=== PATIENT | female | born 1945 | race African-American/Black ===

== ENCOUNTER 2017-01-22 21:46 | Emergency (ER) | payer MEDICARE, OTHER ==
[~2017-01-22] VITALS: Ht 167.6 cm; Wt 68.0 kg
[~2017-01-22 21:46] MED LIST: NITR0.4S31; PHEN100C70
[2017-01-22 22:46] LABS: Basophils # (auto) 0 uL; Basophils % (auto) 0.7 % (0.0-2.0); Eosinophils # (auto) 0 uL; Eosinophils % (auto) 1.1 % (0.0-7.0); Lymphocytes # (auto) 1.5 uL; Lymphocytes % (auto) 37.2 % (10.0-50.0); Mean Corpuscular Hgb Conc. 33.3 g/dL (32.0-36.0); Mean Corpuscular Volume 84.1 fL (80.0-100.0); Monocytes # (auto) 0.4 uL; Monocytes % (auto) 10.2 % (0.0-12.0); Neutrophils # (auto) 2.1 uL; Neutrophils % (auto) 50.8 % (37.0-80.0); Nucleated Red Blood Cells % 0.1 %; Platelet Count (auto) 319 10^3/uL (140-450); Red Cell Distribution Width 14.1 % (11.8-14.3); White Blood Cell 4.1 10^3/uL (4.4-10.8)
[2017-01-22 23:06] LABS: Albumin 3.6 g/dL (3.4-5.0); Anion Gap 6 (5-15); Aspartate Aminotransferase 15 U/L (15-37); BUN/Creatinine Ratio 11.5; Blood Urea Nitrogen 11 mg/dL (7-18); Calcium 8.6 mg/dL (8.5-10.1); Carbon Dioxide 29 mmol/L (21-32); Chloride 104 mmol/L (98-107); GFR African American 73 mL/min; GFR Non-African American 61 mL/min; Glucose 89 mg/dL (74-106); Potassium 3.7 mmol/L (3.5-5.1); Sodium 139 mmol/L (136-145)
[2017-01-22 23:12] LABS: Alkaline Phosphatase 186 U/L (45-117); Bilirubin, Total 0.2 mg/dL (0.2-1.0); Total Protein 7.9 g/dL (6.4-8.2)
[2017-01-23 00:12] VITALS: BP 105/49
[2017-01-23] MEDS ORDERED: PHENobarbital 32.4 MG TAB PO ONE (00:45)
== END 2017-01-23 01:26 | disposition home or self-care (01) ==
LOC: ER 21:46 → EDBD 21:46 → EDUNIT# 21:46 → ER 01-23 01:01
DX: G40.909 Epilepsy, unspecified, not intractable, without status epilepticus (principal); I10 Essential (primary) hypertension; E78.5 Hyperlipidemia, unspecified; Z91.14 Patient's other noncompliance with medication regimen; Z87.891 Personal history of nicotine dependence
CPT/HCPCS: 36415; 70450; 80053; 80184; 80185; 84484; 85025; 93005; 94761

== ENCOUNTER 2020-10-04 11:55 | Emergency (ER) | payer MEDICARE, OTHER ==
[~2020-10-04] VITALS: Ht 167.6 cm; Wt 59.0 kg
[2020-10-04 11:55] VITALS: BP 129/68
[~2020-10-04 11:55] MED LIST changes: +PHEN100C; -PHEN100C70
[2020-10-04 12:33] LABS: Basophils # (auto) 0 10 ^3/uL (0-0.2); Basophils % (auto) 1.3 % (0.0-2.0); Eosinophils # (auto) 0 10 ^3/uL (0-0.8); Eosinophils % (auto) 1.2 % (0.0-7.0); Hematocrit 34.8 % (36.0-46.0); Lymphocytes # (auto) 1.1 10 ^3/uL (0.4-5.4); Lymphocytes % (auto) 33.9 % (10.0-50.0); Mean Corpuscular Hemoglobin 28.3 pg (28.0-32.0); Mean Corpuscular Hgb Conc. 34.3 g/dL (32.0-36.0); Mean Corpuscular Volume 82.5 fL (80.0-100.0); Monocytes # (auto) 0.4 10 ^3/uL (0-1.3); Monocytes % (auto) 11.8 % (0.0-12.0); Neutrophils # (auto) 1.7 10 ^3/uL (1.6-8.6); Neutrophils % (auto) 51.8 % (37.0-80.0); Nucleated Red Blood Cells % 0.2 %; Red Blood Cells 4.22 10^6/uL (4.0-5.20); Red Cell Distribution Width 13.6 % (11.8-14.3); White Blood Cell 3.4 10^3/uL (4.4-10.8)
[2020-10-04 12:51] LABS: Albumin 3.2 g/dL (3.4-5.0); Anion Gap 3 (5-15); Blood Alcohol < 3.0 mg/dL (0-5); Blood Urea Nitrogen 12 mg/dL (7-18); Carbon Dioxide 28 mmol/L (21-32); Chloride 112 mmol/L (98-107); Glucose 81 mg/dL (74-106); Magnesium 2.1 mg/dL (1.6-2.6); Potassium 3.2 mmol/L (3.5-5.1); Sodium 143 mmol/L (136-145)
[2020-10-04 12:55] LABS: Alanine Aminotransferase 21 U/L (13-56); Alkaline Phosphatase 176 U/L (45-117); Aspartate Aminotransferase 18 U/L (15-37); Bilirubin, Total 0.3 mg/dL (0.2-1.0); GFR African American 97 mL/min; GFR Non-African American 80 mL/min; Total Protein 7.3 g/dL (6.4-8.2)
== END 2020-10-04 16:45 | disposition home or self-care (01) ==
LOC: EDBD 11:55 → ER 11:55
DX: R55 Syncope and collapse (principal); I10 Essential (primary) hypertension; E78.5 Hyperlipidemia, unspecified; Z87.891 Personal history of nicotine dependence; Z79.899 Other long term (current) drug therapy
CPT/HCPCS: 36415; 70450; 71045; 80053; 80320; 83735; 84484; 85025; 93005

== ENCOUNTER 2023-11-28 22:07 | Emergency (ER) | payer MEDICARE, OTHER ==
[~2023-11-28] VITALS: Ht 167.6 cm; Wt 45.5 kg
[2023-11-28 23:20] VITALS: PULSE 86; RESP 12; O2SAT 93
[2023-11-29] MEDS: ONDANSETRON HCL 4 MG/2 ML VIAL IV ONE (00:05)
[2023-11-29] MEDS: MORPHINE SULFATE 4 MG/ML SYR/VIAL IV ONE (00:05)
[2023-11-29] MEDS ORDERED: HYDR-4902 PO (02:20)
[2023-11-29 07:25] VITALS: BP 127/65; PULSE 87; RESP 12; TEMP 98.7; O2SAT 82
[2023-11-29 08:34] VITALS: PULSE 78
== END 2023-11-29 09:21 | disposition home or self-care (01) ==
LOC: EDBD 22:07 → ER 22:07
DX: S30.0XXA Contusion of lower back and pelvis, initial encounter (principal); E78.5 Hyperlipidemia, unspecified; I10 Essential (primary) hypertension; Z87.891 Personal history of nicotine dependence; W18.09XA Striking against other object with subsequent fall, initial encounter; Y93.89 Activity, other specified; Y92.89 Other specified places as the place of occurrence of the external cause; Y99.8 Other external cause status
CPT/HCPCS: 74176; 93005; 96374; 96375; 99285; J2270; J2405

== ENCOUNTER 2024-04-13 07:24 | Inpatient (IN) | payer OTHER, MEDICARE ==
[~2024-04-13] VITALS: Ht 157.5 cm; Wt 48.6 kg
[~2024-04-13 07:24] MED LIST changes: +HYDR-4902 PO
--- NOTE | 2024-04-13 09:32 | ED.PDOC ---
HPI (NEURO) HPI Comments 79 year old female MARYURI presents to the ED with chief complaint of generalized weakness. EMS reports patient is on hospice and has been experiencing generalized weakness for the past week. Patient relays that she experienced a seizure and has been feeling weak today. Patient unable to answer further questions and is a poor historian. Patient denies any N/V/D, dizziness, headache, chest pain, or SOB. Chief Complaint: General Weakness Time Seen by MD: 09:29 Primary Care Provider: LILOIES Reviewed Notes: Nurses Notes, Cable Installation Technician Notes, Medications, Allergies Information Source: Patient, Emergency Med Personnel Mode of Arrival: EMS Severity: Moderate Dizziness/Weakness Severity: Unable to do activities Headache Severity: None Timing: Hours Duration: Since onset Prehospital treatment: None Seizure Quality: Tonic-clonic Weakness Location: Generalized Seizure Location: Generalized Onset: At rest Circumstances: Spontaneous Symptoms: Weakness After: Normal Mentation History of: Seizure Disorder Associated Signs and Symptoms: Weakness Past Medical History PAST MEDICAL HISTORY: Angina, Dementia, High Lipids, HTN, Seizures Surgical History: Denies all surgeries 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 Hx Family History Family History: No family hx of HTN Social History Smoker: Quit Greater Than 1 Year Alcohol: Rarely Drugs: Denies Drug Use Lives In: Assisted Care Constitutional: reports: weakness; denies: chills, diaphoresis, fatigue, fever, malaise, sweats, others EENTM: denies: blurred vision, double vision, ear bleeding, ear discharge, ear drainage, ear pain, ear ringing, eye pain, eye redness, hearing loss, mouth pain, mouth swelling, nasal discharge, nose bleeding, nose congestion, nose pain, photophobia, tearing, throat pain, throat swelling, voice changes, others Respiratory: denies: cough, hemoptysis, orthopnea, SOB at rest, shortness of breath, SOB with excertion, stridor, wheezing, others Cardiovascular: denies: chest pain, dizzy spells, diaphoresis, Dyspnea on exertion, edema, irregular heart beat, left arm pain, lightheadedness, palpitations, PND, syncope, others Gastrointestinal: denies: abdomen distended, abdominal pain, blood streaked bowels, constipated, diarrhea, dysphagia, difficulty swallowing, hematemesis, melena, nausea, poor appetite, poor fluid intake, rectal bleeding, rectal pain, vomiting, others Genitourinary: denies: abnormal vagina bleeding, burning, dyspareunia, dysuria, flank pain, frequency, hematuria, incontinence, pain, , vagina discharge, urgency, others Neurological: reports: seizure; denies: dizziness, fainting, headache, left sided numbness, left sided weakness, numbness, paresthesia, pre-existing deficit, right sided numbness, right sided weakness, speech problems, tingling, tremors, weakness, others Musculoskeletal: denies: back pain, gout, joint pain, joint swelling, muscle pain, muscle stiffness, neck pain, others Integumetry: denies: bruises, change in color, change in hair/nails, dryness, laceration, lesions, lumps, rash, wounds, others Allergic/Immunocompromised: denies: Difficulty Healing, Frequent Infections, Hives, Itching, others Hematologic/Lymphatic: denies: anemia, blood clots, easy bleeding, easy bruising, swollen glands, others Endocrine: denies: excessive hunger, excessive sweating, excessive thirst, excessive urination, flushing, intolerance to cold, intolerance to heat, unexplained weight gain, unexplained weight loss, others Psychiatric: denies: anxiety, bipolar disorder, depression, hopeless, panic disorder, schizophrenia, sleepless, suicidal, others All Other Systems: Reviewed and Negative Physical Exam General Appearance: No Apparent Distress, Other (Chronically ill appearing, pleasantly confused.) HEENT: Normal ENT Inspection, PERRL/EOMI Neck: Full Range of Motion, Non-Tender, Normal, Normal Inspection Respiratory: Chest Non-Tender, Lungs Clear, No Accessory Muscle Use, No Respiratory Distress, Normal Breath Sounds Cardiovascular: No Edema, No JVD, No Murmur, No Gallop, Normal Peripheral Pulses, Regular Rate/Rhythm Breast Exam: Deferred Gastrointestinal: No Organomegaly, Non Tender, No Pulsatile Mass, Normal Bowel Sounds, Soft Genitalia: Deferred Pelvic: Deferred Rectal: Deferred Extremities: No calf tenderness, Normal capillary refill, Normal inspection, Normal range of motion, Non-tender, No pedal edema Musculoskeletal : Apperance: Normal Neurologic: Alert, casino shift manager II-XII nml as Tested, No Motor Deficits, Normal Affect, Normal Mood, No Sensory Deficits Cerebellar Function: Normal Reflexes: Normal Skin: Dry, Normal Color, Warm Lymphatic: No Adenopathy Was a procedure done? Was a procedure done?: No Differential Diagnosis (SZ) Seizure: Hypocalcemia, Hypoglycemia, Idiopathic, Syncope, Encephalopathy, Ep ilepsy-Break Through CVA: CVA, Encephalopathy, SAH General Weakness: CVA, Dehydration, Electrolyte imbalance, Encephalopathy, Hypoglycemia, Myocardial infarction, TIA Headache: N/A X-Ray, Labs, Meds, VS Vital Signs Date Time Temp Pulse Resp B/P (MAP) Pulse Ox O2 Delivery O2 Flow Rate FiO2 04/13/24 10:59 93 16 94/45 (61) 95 04/13/24 10:10 92 16 96 Room Air 04/13/24 10:10 97.5 92 16 86/59 (68) 96 97.5 04/13/24 07:27 96 04/13/24 07:26 98.4 101 20 108/64 (79) 94 Lab Test 04/13/24 10:37 04/13/24 06:31 Range/Units Troponin I High Sensitivity < 3 L 3 L </=34 ng/L White Blood Count 13.1 H 4.4-10.8 10^3/uL Red Blood Count 4.24 4.0-5.20 10^6/uL Hemoglobin 9.9 L 12.2-16.2 g/dL Hematocrit 31.0 L 36.0-46.0 % Mean Corpuscular Volume 73.1 L 80.0-100.0 fL Mean Corpuscular Hemoglobin 23.3 L 28.0-32.0 pg Mean Corpuscular Hemoglobin Concent 31.9 L 32.0-36.0 g/dL Red Cell Distribution Width 17.1 H 11.8-14.3 % Platelet Count 378 140-450 10^3/uL Mean Platelet Volume 7.0 6.9-10.8 fL Neutrophils (%) (Auto) 79.7 37.0-80.0 % Lymphocytes (%) (Auto) 12.8 10.0-50.0 % Monocytes (%) (Auto) 7.1 0.0-12.0 % Eosinophils (%) (Auto) 0.2 0.0-7.0 % Basophils (%) (Auto) 0.2 0.0-2.0 % Neutrophils # (Auto) 10.5 H 1.6-8.6 10 ^3/uL Lymphocytes # (Auto) 1.7 0.4-5.4 10 ^3/uL Monocytes # (Auto) 0.9 0-1.3 10 ^3/uL Eosinophils # (Auto) 0 0-0.8 10 ^3/uL Basophils # (Auto) 0 0-0.2 10 ^3/uL Nucleated Red Blood Cells 0.0 % Sodium Level 139 136-145 mmol/L Potassium Level 4.2 3.5-5.1 mmol/L Chloride Level 104 98-107 mmol/L Carbon Dioxide Level 28 20-31 mmol/L Anion Gap 7 5-15 Blood Urea Nitrogen 15 9-23 mg/dL Creatinine 0.89 0.550-1.02 mg/dL Glomerular Filtration Rate Calc 66 >90 mL/min BUN/Creatinine Ratio 16.9 10.0-20.0 Serum Glucose 102 74-106 mg/dL Calcium Level 8.9 8.7-10.4 mg/dL Current Medications Medications (Trade) Dose Ordered Sig/Deloris Route Start Time Stop Time Status Last Admin Sodium Chloride 1,000 ml @ 1,000 mls/hr Q1H ONCE IV 04/13/24 10:30 04/13/24 11:29 DC 04/13/24 10:23 Time of 1ST Reevaluation: 10:29 Reevaluation 1ST: Unchanged Patient Education/Counseling: Diagnosis, Treatment Family Education/Counseling: No Family Present Additional Information I reviewed the following notes from patient's past medical encounters: 11/28/23 for lower back pain The following tests were ordered, and results were reviewed by me: CT Head, CXR, CBC, BMP, UA, Troponin, EKG I reviewed and agreed with the following test results read by other providers: CT Head, CXR Additional Information was gathered from interviewing the following independent historians: EMS I discussed treatment and results with medical personnel. Departure 1 Departure Time of Disposition: 11:36 (Patient with generalized weakness and found to have a right lower lobe pneumonia. Patient's vitals and presentation is concerning for sepsis. Patient is mildly fluid overloaded so we will give decreased amount of fluid. We will admit patient for further workup and expert consultation.) Impression: Primary Impression: Right lower lobe pneumonia Qualified Codes: J18.9 - Pneumonia, unspecified organism Additional Impression: Generalized weakness Disposition: ADMITTED INPATIENT Admit to: Med Surg Condition: Serious Critical Care Note Critical Care Time?: Yes Critical care comment: Concerning for sepsis Authorized and Performed by: Tim Encarnacion MD Total critical care time: Approximately 40 minutes Due to a high probability of clinically significant, life threatening d eterioration, the patient required my highest level of preparedness to intervene emergently and I personally spent this critical care time directly and personally managing the patient. This critical care time included obtaining a history; examining the patient; pulse oximetry; ordering and review of studies; arranging urgent treatment with development of a management plan; evaluation of patient's response to treatment; frequent reassessment; and, discussions with other providers. This critical care time was performed to assess and manage the high probability of imminent, life-threatening deterioration that could result in multi-organ failure. It was exclusive of separately billable procedures and treating other patients and teaching time. Please see my other sections and the rest of the note for further information on patient assessment and treatment. Stability Stability form required: No Heart Score Heart Score: Heart Score Response (Comments) Value History N/A 0 EKG N/A 0 Age N/A 0 Risk Factors N/A 0 Troponin N/A 0 Total 0 I personally scribed for TIM ENCARNACION MD ([email or web address]) on 04/13/24 at 09:32. Electronically submitted by Derrick Story ([email or web address]). TIM ENCARNACION MD Apr 13, 2024 09:32
[2024-04-13 09:54] LABS: Basophils # (auto) 0 10 ^3/uL (0-0.2); Eosinophils # (auto) 0 10 ^3/uL (0-0.8); Hemoglobin 9.9 g/dL (12.2-16.2)
[2024-04-13 09:56] LABS: Chloride 104 mmol/L (98-107); Potassium 4.2 mmol/L (3.5-5.1); Sodium 139 mmol/L (136-145)
[2024-04-13 09:57] LABS: Anion Gap 7 (5-15); Basophils % (auto) 0.2 % (0.0-2.0); Calcium 8.9 mg/dL (8.7-10.4); Carbon Dioxide 28 mmol/L (20-31); Eosinophils % (auto) 0.2 % (0.0-7.0); Lymphocytes # (auto) 1.7 10 ^3/uL (0.4-5.4); Lymphocytes % (auto) 12.8 % (10.0-50.0); Mean Corpuscular Hemoglobin 23.3 pg (28.0-32.0); Mean Corpuscular Hgb Conc. 31.9 g/dL (32.0-36.0); Mean Corpuscular Volume 73.1 fL (80.0-100.0); Monocytes # (auto) 0.9 10 ^3/uL (0-1.3); Monocytes % (auto) 7.1 % (0.0-12.0); Neutrophils # (auto) 10.5 10 ^3/uL (1.6-8.6); Neutrophils % (auto) 79.7 % (37.0-80.0); Platelet Count (auto) 378 10^3/uL (140-450); Red Blood Cells 4.24 10^6/uL (4.0-5.20); Red Cell Distribution Width 17.1 % (11.8-14.3); White Blood Cell 13.1 10^3/uL (4.4-10.8)
[2024-04-13 10:02] LABS: BUN/Creatinine Ratio 16.9 (10.0-20.0); Blood Urea Nitrogen 15 mg/dL (9-23); Glucose 102 mg/dL (74-106)
[2024-04-13] MEDS: SODIUM CHLORIDE 0.9% 1,000 ML IV ONE ×3 (10:23→16:44)
--- NOTE | 2024-04-13 10:48 | DVH ---
EXAM: XY CHEST PORTABLE Indication: weakness Technique: Single frontal view of the chest was obtained Comparison: None FINDINGS: Lines and Tubes: None Lungs: Small right pleural effusion and right lung opacities. No pneumothorax. Cardiomediastinal contours: Unremarkable. Atherosclerotic vascular calcifications of the thoracic ao rta are noted. Bones: No acute osseous abnormality. IMPRESSION: Small right pleural effusion and right lung opacities.
--- NOTE | 2024-04-13 10:48 | DVH ---
EXAM: CT HEAD WITHOUT CONTRAST INDICATION: weakness TECHNIQUE: CT of the head without intravenous contrast. Coronal and sagittal reformatted images are submitted. Radiation Dose : 1. Head: CT Dose: CTDI volume is 53.2 mGy. Dose-length product is 1046.3 mGy*cm The dose indicators for CT are the volume Computed Tomography (CT) Dose Index (CTDIvol) and the Dose Length Product (DLP), and are measured in units of mGy and mGy-cm, respectively. These indicators are not patient dose, but values generated from the CT scanner acquisition factors. The report includes radiation exposure data for exposures received during this examination. All CT scans at this medical facility are performed using dose modulation techniques as appropriate to a performed exam including the following: Automated exposure control was utilized; adjustment of the MA and/or KV according to patient size; and use of iterative reconstruction technique. COMPARISON: CT scan of the head performed on 10/04/2020 FINDINGS: There is no evidence of acute intracranial hemorrhage, extra-axial collection, mass effect, midline s hift, herniation or hydrocephalus. There are periventricular and subcortical hypodensities, nonspecific, but likely reflecting sequelae of chronic microvascular ischemic changes. The ventricles, sulci and cisterns are age appropriate. Old bilateral basal ganglia infarcts. The martin-white differentiation is intact. The visualized paranasal sinuses and mastoid air cells are clear. No depressed calvarial fracture. The surrounding soft tissues are unremarkable. IMPRESSION: 1. No evidence of acute intracranial abnormality.
[2024-04-13] MEDS: VANCOMYCIN 1GM/250ML KIT 200 ML IV ONE (13:04)
--- NOTE | 2024-04-13 14:28 | ECG ---
[facility] Test Date: 2024-04-13 Test Time: 07:27:29 Pat Name: DOT LAY Department: ER Room: 0222T Gender: F Wheat Farmer: IC : 1945 Requested By: TIM LIMA Order Number: [id number] Reading MD: Alber Bateman Measurements Intervals [place] Rate: 96 P: 73 WV: 120 QRS: 56 QRSD: 77 T: 77 QT: 366 QTc: 463 Interpretive Statements Sinus rhythm Low voltage, extremity and precordial leads Nonspecific T abnrm, anterolateral leads Electronically Signed On 04-16-2024 10:38:15 PST by Alber Bateman Please click the below link to view image of tracing.
[2024-04-13] MEDS ORDERED: ACETAMINOPHEN 325 MG TAB PO PRN (16:00)
[2024-04-13] MEDS ORDERED: HYDROcodone-ACET 5/325MG TAB PO PRN (16:00)
[2024-04-13] MEDS ORDERED: NITROGLYCERIN 0.4 MG SL TAB SL PRN (16:00)
[2024-04-13] MEDS ORDERED: ONDANSETRON HCL 4 MG/2 ML VIAL IV PRN (16:00)
[2024-04-13] MEDS ORDERED: MORPHINE SULFATE INJ 2 MG/ml SYRG IV PRN (16:00)
[2024-04-13] MEDS ORDERED: AMLO1TAB23 PO (16:04)
[2024-04-13] MEDS ORDERED: ASPI-325 PO (16:04)
[2024-04-13] MEDS ORDERED: LOS25T PO (16:04)
[2024-04-13] MEDS ORDERED: METF-370 PO (16:04)
[2024-04-13] MEDS ORDERED: FURO40TA4 PO (16:04)
[2024-04-13] MEDS ORDERED: PHEN1CAP38 PO (16:06)
[2024-04-13] MEDS ORDERED: IPRATROPIUM BROM 0.5 MG/2.5ML INH SOL NEB PRN (16:15)
[2024-04-13] MEDS ORDERED: ALBUTEROL SULF 2.5 MG/0.5ML(0.5%) NEB SOLN NEB PRN (16:15)
[2024-04-13 16:20] VITALS: BP 94/45; PULSE 94; RESP 16; TEMP 97.5; O2SAT 94
--- NOTE | 2024-04-13 16:21 | DVHHP2 ---
History of Present Illness Reason for Visit: Seizure History of Present Illness Lauren Valladares is an 79-year-old female with past medical history of dementia, angina, hypertension, hyperlipidemia, and seizures who was brought in by EMS for generalized weakness. Per EMS patient is on hospice and has been experiencing generalized weakness for the past week. Patient relays that she experienced a seizure and has been feeling weak today. Patient unable to answer further questions and is a poor historian. Patient denies any N/V/D, dizziness, headache, chest pain, or SOB. I attempted to call family with no answer for further information. Family History: None Smoke: No ALCOHOL: none Drugs: None Lives: with Family Domestic Violence: Neg Review of Systems Constitutional: Yes: Weakness, Malaise; No: Fever, Chills, Sweats, Other Eyes: No: Pain, Vision change, Conjunctivae inflammation, Eyelid inflammation, Other, Redness ENT: No: Ear pain, Ear discharge, Nose pain, Nose discharge, Nose congestion, Mouth pain, Mouth swelling, Throat pain, Throat swelling, Other Respiratory: Shortness of breath; No: Cough, Dry, SOB with excertion, Wheezing, Hemoptysis, Pleuritic Pain, Sputum, Wheezing, Other Cardiovascular: No: Chest Pain, Palpitations, Orthopnea, Paroxysmal Noc. Dyspnea, Edema, Lt Headedness, Other Gastrointestinal: No: Nausea, Vomiting, Abdominal Pain, Diarrhea, Constipation, Melena, Hematochezia, Other Genitourinary: No Dysuria, No Frequency, No Incontinence, No Hematuria, No Retention, No Other Musculoskeletal: No: other, neck pain, shoulder pain, arm pain, back pain, hand pain, leg pain, foot pain Skin: No: Rash, Lesions, Jaundice, Bruising, Other Neurological: Confusion, Seizures; No: Weakness, Numbness, Incoordination, Change in speech, Other Allergies: Coded Allergies: NO KNOWN ALLERGIES (Unverified , 10/04/20) Medications Current Medications Medications Dose Ordered Sig/Deloris Route Start Time Stop Time Status Last Admin Dose Admin Sodium Chloride 10 ml Q8HR IV 04/13/24 22:00 UNV Acetaminophen/ Hydrocodone Bitart 1 tab Q4HP PRN PO 04/13/24 16:00 UNV Ondansetron HCl 4 mg Q4HP PRN IV 04/13/24 16:00 UNV Acetaminophen 650 mg Q6HP PRN PO 04/13/24 16:00 UNV Nitroglycerin 0.4 mg Q5MINP PRN SL 04/13/24 16:00 UNV Morphine Sulfate 2 mg Q30M PRN IV 04/13/24 16:00 UNV Aspirin 81 mg DAILY PO 04/14/24 10:00 UNV Phenytoin Sodium 100 mg TID PO 04/13/24 22:00 UNV Azithromycin 250 ml @ 125 mls/hr DAILY IV 04/14/24 10:00 UNV Ceftriaxone Sodium 50 ml @ 100 mls/hr DAILY@09 IV 04/14/24 09:00 UNV Exam Vital Signs Vital Signs Date Time Temp Pulse Resp B/P (MAP) Pulse Ox O2 Delivery O2 Flow Rate FiO2 04/13/24 10:59 93 16 94/45 (61) 95 04/13/24 10:10 Room Air 04/13/24 10:10 97.5 97.5 General Appearance: Alert, Other (Oriented x 1 ) HEENT: Atraumatic, PERRLA Respiratory: Other (Diminshed breath sounds) Cardiovascular: Regular rate, Normal S1, Normal S2 Abdominal: Normal bowel sounds, Soft, No tenderness Extremities: No clubbing, No cyanosis, No edema, Normal pulses Skin: No rashes, No breakdown, No significant lesion Psych/Mental Status: Other (flat affect) Labs/Xrays Labs Test 04/13/24 10:37 04/13/24 06:31 Range/Units Troponin I High Sensitivity < 3 L </=34 ng/L White Blood Count 13.1 H 4.4-10.8 10^3/uL Red Blood Count 4.24 4.0-5.20 10^6/uL Hemoglobin 9.9 L 12.2-16.2 g/dL Hematocrit 31.0 L 36.0-46.0 % Mean Corpuscular Volume 73.1 L 80.0-100.0 fL Mean Corpuscular Hemoglobin 23.3 L 28.0-32.0 pg Mean Corpuscular Hemoglobin Concent 31.9 L 32.0-36.0 g/dL Red Cell Distribution Width 17.1 H 11.8-14.3 % Platelet Count 378 140-450 10^3/uL Mean Platelet Volume 7.0 6.9-10.8 fL Neutrophils (%) (Auto) 79.7 37.0-80.0 % Lymphocytes (%) (Auto) 12.8 10.0-50.0 % Monocytes (%) (Auto) 7.1 0.0-12.0 % Eosinophils (%) (Auto) 0.2 0.0-7.0 % Basophils (%) (Auto) 0.2 0.0-2.0 % Neutrophils # (Auto) 10.5 H 1.6-8.6 10 ^3/uL Lymphocytes # (Auto) 1.7 0.4-5.4 10 ^3/uL Monocytes # (Auto) 0.9 0-1.3 10 ^3/uL Eosinophils # (Auto) 0 0-0.8 10 ^3/uL Basophils # (Auto) 0 0-0.2 10 ^3/uL Nucleated Red Blood Cells 0.0 % Sodium Level 139 136-145 mmol/L Potassium Level 4.2 3.5-5.1 mmol/L Chloride Level 104 98-107 mmol/L Carbon Dioxide Level 28 20-31 mmol/L Anion Gap 7 5-15 Blood Urea Nitrogen 15 9-23 mg/dL Creatinine 0.89 0.550-1.02 mg/dL Glomerular Filtration Rate Calc 66 >90 mL/min BUN/Creatinine Ratio 16.9 10.0-20.0 Serum Glucose 102 74-106 mg/dL Calcium Level 8.9 8.7-10.4 mg/dL EXAM: CT HEAD WITHOUT CONTRAST FINDINGS: There is no evidence of acute intracranial hemorrhage, extra-axial collection, mass effect, midline shift, herniation or hydrocephalus. There are periventricular and subcortical hypodensities, nonspecific, but likely reflecting sequelae of chronic microvascular ischemic changes. The ventricles, sulci and cisterns are age appropriate. Old bilateral basal ganglia infarcts. The martin-white differentiation is intact. The visualized paranasal sinuses and mastoid air cells are clear. No depressed calvarial fracture. The surrounding soft tissues are unremarkable. IMPRESSION: 1. No evidence of acute intracranial abnormality. EXAM: XY CHEST PORTABLE FINDINGS: Lines and Tubes: None Lungs: Small right pleural effusion and right lung opacities. No pneumothorax. Cardiomediastinal contours: Unremarkable. Atherosclerotic vascular calcifications of the thoracic aorta are noted. Bones: No acute osseous abnormality. IMPRESSION: Small right pleural effusion and right lung opacities. Assessment/Plan Assessment/Plan Assessment: Right lower lobe pneumonia, Seizure, Dementia, Hypertension, Hyperlipidemia, Plan: Admit to Tele, IV hydration, IV antibiotics, Blood cultures, UA and urine cultures, Breathing treatments as needed, Seizure precautions, Fall precautions, Home medications reconciled, Plan discussed with: Patient My Orders Orders - JERAMYGIGI R ROTARY DRILL RIG OPERATOR Procedure Category Date Status Time Admit ADMIT 04/13/24 Transmitted 16:00 Code Status CODE 04/13/24 Transmitted 16:00 Sodium Chloride Lock PHA 04/13/24 Logged (Saline Lock Ns) 22:00 Hydrocodone-Acet PHA 04/13/24 Logged 5/325mg Tab ([place] 16:00 Ondansetron Hcl PHA 04/13/24 Logged (Zofran) 16:00 Fall Risk Precautions HEATH 04/13/[address] 16:00 Complete Blood Count LAB 04/14/24 Verified 04:00 Comprehensive LAB 04/14/24 Verified Metabolic Panel 04:00 Cardiac DIET 04/13/24 Transmitted Diet-2gna,Lofat,Lochol Dinner Condition: Serious HEATH 04/13/24 In Process 16:00 Acetaminophen Tablet PHA 04/13/24 Logged (Tylenol Tablet) 16:00 Nitroglycerin PHA 04/13/24 Logged Sublingual (Ntrostat 16:00 Morphine Sulfate PHA 04/13/24 Logged Injection 16:00 Stat Ekg For Chest HEATH 04/13/24 In Process Pain 16:00 Notify Md Of Changes HEATH 04/13/24 In Process From Base 16:00 Cell Maker For HEATH 04/13/24 In Process 24 Hours 16:00 Emergency Dysrhythmia HEATH 04/13/24 In Process Protocol 16:00 Rhythm Strips Once HEATH 04/13/24 In Process Every Shift 16:00 Oxygen By Nasal RT 04/13/24 Transmitted Cannula 16:00 Aspirin Enteric PHA 04/14/24 Logged Coated Tablet 10:00 Phenytoin Capsule PHA 04/13/24 Logged (Dilantin Capsule) 22:00 Azithromycin 500mg/ PHA 04/14/24 Logged 250ml (Zithromax 50 10:00 Ceftriaxone 1gm/50ml PHA 04/14/24 Logged D5w (Rocephin) 09:00 Albuterol Medneb PHA 04/13/24 Transmitted (Ventolin Medneb) 16:15 Ipratropium Medneb PHA 04/13/24 Transmitted (Atrovent Medneb) 16:15 NS PHA 04/13/24 Transmitted 16:15 Urine Bacterial MITZY 04/13/24 Verified Culture 16:09 Date of Service: Apr 13, 2024 Billing Provider: GIGI DESHPANDE Common Visit Codes: [id number] INP/OBS CARE (MOD) GIGI DESHPANDE Apr 13, 2024 16:21
[2024-04-13] MEDS: CEFEPIME 2GM/50ML NS 50 ML IV ONE (16:45)
[2024-04-13 19:19] VITALS: PULSE 100; RESP 16; O2SAT 94
[2024-04-13 20:00] VITALS: PULSE 94
[2024-04-13 20:20] VITALS: O2SAT 94
[2024-04-13 20:30] VITALS: PULSE 100; RESP 16; O2SAT 93
[2024-04-13 21:00] VITALS: BP 102/57; PULSE 96; RESP 16; TEMP 97.8; O2SAT 96
[2024-04-13] MEDS: PHENYTOIN SODIUM 100 MG CAP PO SCH (21:00)
[2024-04-13] MEDS: SODIUM CHLOR 0.9% PF (SALINE LOCK) 10ML VIAL/SYR IV SCH (21:00)
[2024-04-14] VITALS (11 sets, daily range): BP systolic 95–129; BP diastolic 53–69; PULSE 70–93; RESP 16–19; TEMP 97.8–98.9; O2SAT 93–100
[2024-04-14 08:21] LABS: Basophils # (auto) 0 10 ^3/uL (0-0.2); Basophils % (auto) 0.2 % (0.0-2.0); Eosinophils # (auto) 0 10 ^3/uL (0-0.8); Hemoglobin 8.6 g/dL (12.2-16.2); Mean Corpuscular Hemoglobin 23.6 pg (28.0-32.0); Mean Corpuscular Volume 73.6 fL (80.0-100.0); Platelet Count (auto) 305 10^3/uL (140-450)
[2024-04-14 08:24] LABS: Eosinophils % (auto) 0.3 % (0.0-7.0); Hematocrit 26.7 % (36.0-46.0); Lymphocytes # (auto) 1.1 10 ^3/uL (0.4-5.4); Lymphocytes % (auto) 9.8 % (10.0-50.0); Mean Corpuscular Hgb Conc. 32.1 g/dL (32.0-36.0); Monocytes # (auto) 0.8 10 ^3/uL (0-1.3); Monocytes % (auto) 7.3 % (0.0-12.0); Neutrophils % (auto) 82.4 % (37.0-80.0); Red Blood Cells 3.63 10^6/uL (4.0-5.20); Red Cell Distribution Width 17.2 % (11.8-14.3); White Blood Cell 10.9 10^3/uL (4.4-10.8)
[2024-04-14 08:45] LABS: Alanine Aminotransferase 15 U/L (7-40); Alkaline Phosphatase 82 U/L (46-116); Anion Gap 8 (5-15); BUN/Creatinine Ratio 23.3 (10.0-20.0); Blood Urea Nitrogen 14 mg/dL (9-23); Carbon Dioxide 24 mmol/L (20-31); Potassium 3.8 mmol/L (3.5-5.1); Sodium 141 mmol/L (136-145)
[2024-04-14 08:46] LABS: Aspartate Aminotransferase 23 U/L (13-40)
[2024-04-14 08:47] LABS: Bilirubin, Total 0.3 mg/dL (0.2-1.0); Total Protein 6.3 g/dL (5.7-8.2)
[2024-04-14 08:58] LABS: Calcium 8.6 mg/dL (8.7-10.4); Chloride 109 mmol/L (98-107); Glucose 74 mg/dL (74-106)
[2024-04-14] MEDS: ASPirin-EC 81 mg tab PO SCH (09:46)
[2024-04-14] MEDS: cefTRIAXone 1GM/50ML D5W 50 ML IV SCH (09:47)
[2024-04-14] MEDS: AZITHROMYCIN 500MG/ 250ML 250 ML IV SCH (10:42)
--- NOTE | 2024-04-14 15:01 | DVHPN2 ---
Reviewed: Care Plan, H&P, Labs, Medications, Previous Orders, Radiology Changes from previous H/P or p: No Changes Eyes: No Pain, No Vision change, No Conjunctivae inflammation, No Eyelid inflammation, No Other, No Redness ENT: No Ear pain, No Ear discharge, No Nose pain, No Nose discharge, No Nose congestion, No Mouth pain, No Mouth swelling, No Throat pain, No Throat swelling, No Other Cardiovascular: No Chest Pain, No Palpitations, No Orthopnea, No Paroxysmal Noc. Dyspnea, No Edema, No Lt Headedness, No Other Respiratory: No Cough, No Dry; Shortness of breath; No SOB with excertion, No Wheezing, No Hemoptysis, No Pleuritic Pain, No Sputum, No Other Gastrointestinal: No Nausea, No Vomiting, No Abdominal Pain, No Diarrhea, No Constipation, No Melena, No Hematochezia, No Other Genitourinary: No Dysuria, No Frequency, No Incontinence, No Hematuria, No Retention, No Other Musculoskeletal: No other, No neck pain, No shoulder pain, No arm pain, No back pain, No hand pain, No leg pain, No foot pain Skin: No Rash, No Lesions, No Jaundice, No Bruising, No Other Objective Vitals Vital Signs Date Time Temp Pulse Resp B/P (MAP) Pulse Ox O2 Delivery O2 Flow Rate FiO2 04/14/24 13:00 98.2 83 16 104/62 (76) 98 98.2 04/14/24 08:00 Room Air* 0 21 Intake/Output Intake and Output 04/14/24 07:00 Intake Total 3437.5 ml Balance 3437.5 ml Intake Oral 1100 ml IV Total 2337.5 ml # Voids 4 Medications Current Medications Medications Dose Ordered Sig/Deloris Route Start Time Stop Time Status Last Admin Dose Admin Sodium Chloride 10 ml Q8HR IV 04/13/24 22:00 04/14/24 14:28 10 ML Acetaminophen/ Hydrocodone Bitart 1 tab Q4HP PRN PO 04/13/24 16:00 Ondansetron HCl 4 mg Q4HP PRN IV 04/13/24 16:00 Acetaminophen 650 mg Q6HP PRN PO 04/13/24 16:00 Nitroglycerin 0.4 mg Q5MINP PRN SL 04/13/24 16:00 Morphine Sulfate 2 mg Q30M PRN IV 04/13/24 16:00 Aspirin 81 mg DAILY PO 04/14/24 10:00 04/14/24 09:46 81 MG Phenytoin Sodium 100 mg TID PO 04/13/24 22:00 04/14/24 06:08 100 MG Azithromycin 250 ml @ 125 mls/hr DAILY IV 04/14/24 10:00 04/14/24 10:42 125 MLS/HR Ceftriaxone Sodium 50 ml @ 100 mls/hr DAILY@09 IV 04/14/24 09:00 04/14/24 09:47 100 MLS/HR Albuterol 2.5 mg Q4HPRN PRN NEB 04/13/24 16:15 Ipratropium [place] 0.5 mg Q4HPRN PRN NEB 04/13/24 16:15 Laboratory Results Laboratory Tests 04/14/24 07:45 Chemistry Test 04/14/24 07:45 Albumin 3.0 g/dL (3.2-4.8) L Calcium Level 8.6 mg/dL (8.7-10.4) L Total Protein 6.3 g/dL (5.7-8.2) LFT Test 04/14/24 07:45 Alanine Aminotransferase (ALT) 15 U/L (7-40) Alkaline Phosphatase 82 U/L (46-116) Aspartate Amino Transferase (AST) 23 U/L (13-40) Total Bilirubin 0.3 mg/dL (0.2-1.0) Labs and/or images reviewed: Labs reviewed by me, Image(s) reviewed by me Assessment/Plan Assessment/Plan Sepsis secondary to community-acquired pneumonia Right lower lobe pneumonia: Rocephin azithromycin albuterol Atrovent med-neb Acute metabolic encephalopathy Possible seizures: CT head negative Neurology consult Dementia Hypertension History of throat cancer diagnosed 8 yrs ago Hypercholesterolemia History of seizures Patient is hospice revoked Time spent 65 minutes Patient is full code Advanced care planning time 20 minutes Daughter and power of tag writer Sergio [phone] who is also roller of senior care facility ,pts son Terrence [phone] at the bedside Plan discussed with: Patient My Orders Orders - ALONDRA MARCUM MD Procedure Category Date Status Time Covid19 Antigen [facility] LAB 04/14/24 Transmitted Rapid Influenza A&B LAB 04/14/24 Transmitted 14:43 D-Dimer LAB 04/14/24 Transmitted 14:43 Date of Service: Apr 14, 2024 Billing Provider: ALONDRA MARCUM MD Common Visit Codes: [id number] INP/OBS CARE(HIGH) Secondary Visit Codes: [id number] CARE PLAN 30 MINUTES ALONDRA MARCUM MD Apr 14, 2024 15:01
[2024-04-14 16:54] LABS: Urine Bacteria None Seen /hpf (None Seen)
[2024-04-14 17:01] LABS: Urine Blood 2+ /uL (Negative); Urine Budding Yeast OCCASIONAL /hpf (None Seen); Urine Clarity Clear (Clear); Urine Color Yellow (Yellow); Urine Protein, UAD TRACE (Negative); Urine Specific Gravity 1.019 (1.001-1.035); Urine Squamous Epithelial Cell FEW /hpf (<5); Urine Urobilinogen Normal (Negative); Urine WBC 1 /HPF (0-5); Urine pH 5.5 (5.0-9.0)
[2024-04-14 18:30] LABS: COVID19 ANTIGEN SOFIA FIA NEGATIVE (NEGATIVE); Rapid Influenza A Negative (Negative); Rapid Influenza B Negative (Negative)
--- NOTE | 2024-04-14 20:39 | DVHINCON2 ---
Date of service: Apr 14, [address] Kruger Reason for Consultation Altered mental status, possible seizure History of Present Illness Ms. Valladares is an 79 years old female with a history of hypertension, dyslipidemia, angina, dementia, seizure, throat cancer, she was brought to the [facility] on 04/13/2024 with a chief company of general weakness. At this time, the patient is awake, oriented to herself, she only talks when she has to, the history is obtained from her daughter, Sergio, but she is not a good historian The patient was history of seizure, dementia, that will be further described, the patient was was in hospice because of throat cancer. Before she came, the patient complained of throat pain on swallowing, general weakness, and she was brought to the hospital for further evaluation She was a history of dementia for 5-10 years, it started with progressive short- term memory, late long-term memory has been affected. The patient remember some but not all her family members Her daughter relates the patient was history of seizure disorder, but she does not remember for how long. During the seizure, the patient was has shaking all over body, eyes rolling back, company nonresponsive. The last seizure was on 04/13/24, and she was seizure once every other week. She was on phenytoin, 100 mg 3 times a day Urinalysis, 04/14/2024: WBC: 1, urine leukocyte esterase: Negative WBC/HB/PLT/MCV, 04/14/2024: 10.9/8.6/305/73.6 CMP, 04/14/2024: Unremarkable CT head, 04/13/2024: No evidence of acute intracranial abnormality Past Medical History Hypertension, dyslipidemia, angina, dementia, seizure, throat cancer Past Surgical History Surgeries to the leg and arm Family History: Patient reports no known family medical history. Family History Diabetes, no dementia Social History Smoker: Quit Greater Than 1 Year Alcohol: Rarely Drugs: Was a drug abuser Allergies: Coded Allergies: NO KNOWN ALLERGIES (Unverified , 10/04/20) Home Meds Active Scripts Hydrocodone-Acetaminophen (Hydrocodone Bitartrate/AC 5-325 mg) 1 Tab Tab, 1 TAB PO BID PRN, #10 TAB Prov:CHALO GAGNON 11/29/23 Reported Medications Phenytoin Sodium (DILANTIN CAPSULE) 100 Mg Cp, 1 CAP PO TID 04/13/24 Aspirin (Aspirin Low Dose) 81 Mg Tab, 1 TAB PO DAILY 04/13/24 Furosemide (Furosemide) 40 Mg Tab, 1 TAB PO DAILY 04/13/24 Losartan Potassium (Losartan Potassium) 25 Mg Tab, 1 TAB PO DAILY 04/13/24 Amlodipine Besylate (Amlodipine Besylate) 10 Mg Tab, 1 TAB PO DAILY 04/13/24 Metformin Hydrochloride (Metformin Hcl) 500 Mg Tab, 1 TAB PO DAILY 04/13/24 Nitroglycerin (Nitroglycerin) 0.4 Mg Sl 05/01/11 Discontinued Reported Medications Phenytoin Sodium (Dilantin) 100 Mg Cap 05/01/11 Current Medications Current Medications Medications (Trade) Dose Ordered Sig/Deloris Route PRN Reason Start Time Stop Time Status Last Admin Sodium Chloride (Saline Lock Ns) 10 ml Q8HR IV 04/13/24 22:00 04/14/24 14:28 Aspirin (Ecotrin Enteric Coated Tablet) 81 mg DAILY PO 04/14/24 10:00 04/14/24 09:46 Phenytoin Sodium (Dilantin Capsule) 100 mg TID PO 04/13/24 22:00 04/14/24 14:00 Azithromycin 250 ml @ 125 mls/hr DAILY IV 04/14/24 10:00 04/14/24 10:42 Ceftriaxone Sodium 50 ml @ 100 mls/hr DAILY@09 IV 04/14/24 09:00 04/14/24 09:47 Review of Systems As above, the other systems are negative Vital Signs Vital Signs Date Time Temp Pulse Resp B/P (MAP) Pulse Ox O2 Delivery O2 Flow Rate FiO2 04/14/24 16:49 98.9 70 19 129/68 (88) 100 98.9 04/14/24 08:00 Room Air* 0 21 Physical Exam GENERAL EXAM: General: the patient is well developed and nourished. No acute distress. HEENT: Normocephalic, neck is supple, no carotid bruits. No mass. RESPIRATORY: Normal respiratory effort with symmetrical lung expansion. Lungs clear to auscultation. CARDIOVASCULAR: Regular rate and rhythm with no murmurs. S1, S2. ABDOMEN: Soft, nontender, normal bowel sound NEUROLOGICAL: MENTAL STATUS: Awake SPEECH, LANGUAGE, HIGHER CORTICAL FUNCTION: no aphasia or dysathria. CRANIAL NERVES: #2: Intact visual baker to confrontation. The optic discs were sharp #3,4,6: Pupils are equal, round and reactive. EOMs full and conjugate. #5: Facial sensation intact in all three divisions bilaterally. Mandibular strength intact. #7: Facial muscles symmetrical and strength intact. #8: Hearing grossly normal to voice. #9,10: Uvula and soft palate rise in the midline. Swallow and voice are normal. #11: Trapezius and sternomastoid strength intact bilaterally. #12: Tongue midline. No fasciculations or atrophy. SENSATION: Sensation to touch and pinprick is normal. MOTOR: Normal tone in the upper and lower extremity. Normal muscle bulk. No fasciculations. No abnormal movements or posturing. Muscle strength of the major groups in the upper extremities is /5. Muscle strength of the major groups in the lower extremities is 2/5. REFLEXES: Deep tendon reflexes are symmetrical. No pathological reflexes. CEREBELLAR/COORDINATION: Finger to nose is normal bilaterally. GAIT/STATION: deferred. Labs/Diagnostic Data Labs Test 04/14/24 16:45 04/14/24 16:05 04/14/24 15:12 04/14/24 07:45 Range/Units Urine Color Yellow Yellow Urine Clarity Clear Clear Urine pH 5.5 5.0-9.0 Urine Specific [place] 1.019 1.001-1.035 Urine Protein Trace H Negative Urine Ketones Negative Negative Urine Blood 2+ H Negative /uL Urine Nitrite Negative Negative Urine Bilirubin Negative Negative Urine Urobilinogen Normal Negative mg/dL Urine Leukocyte Esterase Negative Negative /uL Urine RBC 72 0 - 4 /hpf Urine Microscopic WBC 1 0-5 /HPF Urine Squamous Epithelial Cells Few <5 /hpf Urine Bacteria None seen None Seen /hpf Urine Yeast (Budding) Occasional None Seen /hpf Urine Glucose Normal Normal mg/dL Influenza Type A Antigen Negative Negative Influenza Type B Antigen Negative Negative SARS-CoV-2 Antigen (Rapid) Negative NEGATIVE D-Dimer, Quantitative 11.05 H 0.0-0.49 mg/L FEU White Blood Count 10.9 H 4.4-10.8 10^3/uL Red Blood Count 3.63 L 4.0-5.20 10^6/uL Hemoglobin 8.6 L 12.2-16.2 g/dL Hematocrit 26.7 #L 36.0-46.0 % Mean Corpuscular Volume 73.6 L 80.0-100.0 fL Mean Corpuscular Hemoglobin 23.6 L 28.0-32.0 pg Mean Corpuscular Hemoglobin Concent 32.1 32.0-36.0 g/dL Red Cell Distribution Width 17.2 H 11.8-14.3 % Platelet Count 305 140-450 10^3/uL Mean Platelet Volume 7.1 6.9-10.8 fL Neutrophils (%) (Auto) 82.4 H 37.0-80.0 % Lymphocytes (%) (Auto) 9.8 L 10.0-50.0 % Monocytes (%) (Auto) 7.3 0.0-12.0 % Eosinophils (%) (Auto) 0.3 0.0-7.0 % Basophils (%) (Auto) 0.2 0.0-2.0 % Neutrophils # (Auto) 9.0 H 1.6-8.6 10 ^3/uL Lymphocytes # (Auto) 1.1 0.4-5.4 10 ^3/uL Monocytes # (Auto) 0.8 0-1.3 10 ^3/uL Eosinophils # (Auto) 0 0-0.8 10 ^3/uL Basophils # (Auto) 0 0-0.2 10 ^3/uL Nucleated Red Blood Cells 0.0 % Sodium Level 141 136-145 mmol/L Potassium Level 3.8 3.5-5.1 mmol/L Chloride Level 109 H 98-107 mmol/L Carbon Dioxide Level 24 20-31 mmol/L Anion Gap 8 5-15 Blood Urea Nitrogen 14 9-23 mg/dL Creatinine 0.60 # 0.550-1.02 mg/dL Glomerular Filtration Rate Calc 91 >90 mL/min BUN/Creatinine Ratio 23.3 H 10.0-20.0 Serum Glucose 74 74-106 mg/dL Lactic Acid Level 1.4 0.4-2.0 mmol/L Calcium Level 8.6 L 8.7-10.4 mg/dL Total Bilirubin 0.3 0.2-1.0 mg/dL Aspartate Amino Transferase (AST) 23 13-40 U/L Alanine Aminotransferase (ALT) 15 7-40 U/L Alkaline Phosphatase 82 46-116 U/L Troponin I High Sensitivity 3 L </=34 ng/L Total Protein 6.3 5.7-8.2 g/dL Albumin 3.0 L 3.2-4.8 g/dL Assessment Altered mental status Metabolic encephalopathy ? Baseline mental status Dementia Likely Alzheimer disease She has advanced dementia Seizure disorder/grand mal seizure Plan/Recommendation Monitoring Supportive treatment Telemetry Vitamin B12, folic acid, TSH, FT4 UDS Dilantin level EEG Dilantin 100 mg t.i.d. Ativan for seizure breakthrough More recommendation per clinical course Progress: Poor This medical document was created using an electronic medical record system with [employer] dictation system. Although this document has been carefully reviewed, there may still be some phonetic and typographical errors. These areas are purely typographical due to imperfections of the software programs, and do not reflect any compromise in the patient's medical care. Plan discussed with: Daughter, Other CLIFTON ODOM MD Apr 14, 2024 20:38
[2024-04-14] MEDS ORDERED: LORazepam 2MG/ML-1ML VIAL IV PRN (21:15)
[2024-04-14 22:12] LABS: Free T4 (Free Thyroxine) 0.62 ng/dL (0.89-1.76)
[2024-04-14 22:13] LABS: Folate (Folic Acid) 12.71 ng/mL (>5.38)
[2024-04-15] VITALS (9 sets, daily range): BP systolic 100–116; BP diastolic 49–66; PULSE 85–100; RESP 12–20; TEMP 97.7–98.9; O2SAT 94–98
--- NOTE | 2024-04-15 10:11 | DVHPN2 ---
Reviewed: Care Plan, H&P, Labs, Medications, Previous Orders, Radiology Changes from previous H/P or p: No Changes Eyes: No Pain, No Vision change, No Conjunctivae inflammation, No Eyelid inflammation, No Other, No Redness ENT: No Ear pain, No Ear discharge, No Nose pain, No Nose discharge, No Nose congestion, No Mouth pain, No Mouth swelling, No Throat pain, No Throat swelling, No Other Cardiovascular: No Chest Pain, No Palpitations, No Orthopnea, No Paroxysmal Noc. Dyspnea, No Edema, No Lt Headedness, No Other Respiratory: No Cough, No Dry; Shortness of breath; No SOB with excertion, No Wheezing, No Hemoptysis, No Pleuritic Pain, No Sputum, No Other Gastrointestinal: No Nausea, No Vomiting, No Abdominal Pain, No Diarrhea, No Constipation, No Melena, No Hematochezia, No Other Genitourinary: No Dysuria, No Frequency, No Incontinence, No Hematuria, No Retention, No Other Musculoskeletal: No other, No neck pain, No shoulder pain, No arm pain, No back pain, No hand pain, No leg pain, No foot pain Skin: No Rash, No Lesions, No Jaundice, No Bruising, No Other Objective Vitals Vital Signs Date Time Temp Pulse Resp B/P (MAP) Pulse Ox O2 Delivery O2 Flow Rate FiO2 04/15/24 09:00 98.9 95 18 116/61 (79) 94 98.9 04/14/24 22:00 Room Air* 0 21 Intake/Output Intake and Output 04/15/24 06:59 Intake Total 720 ml Balance 720 ml Intake Oral 420 ml IV Total 300 ml # Voids 8 Medications Current Medications Medications Dose Ordered Sig/Deloris Route Start Time Stop Time Status Last Admin Dose Admin Sodium Chloride 10 ml Q8HR IV 04/13/24 22:00 04/15/24 05:36 10 ML Acetaminophen/ Hydrocodone Bitart 1 tab Q4HP PRN PO 04/13/24 16:00 Ondansetron HCl 4 mg Q4HP PRN IV 04/13/24 16:00 Acetaminophen 650 mg Q6HP PRN PO 04/13/24 16:00 Nitroglycerin 0.4 mg Q5MINP PRN SL 04/13/24 16:00 Morphine Sulfate 2 mg Q30M PRN IV 04/13/24 16:00 Aspirin 81 mg DAILY PO 04/14/24 10:00 04/15/24 09:23 81 MG Phenytoin Sodium 100 mg TID PO 04/13/24 22:00 04/15/24 05:36 100 MG Azithromycin 250 ml @ 125 mls/hr DAILY IV 04/14/24 10:00 04/14/24 10:42 125 MLS/HR Ceftriaxone Sodium 50 ml @ 100 mls/hr DAILY@09 IV 04/14/24 09:00 04/15/24 09:23 100 MLS/HR Albuterol 2.5 mg Q4HPRN PRN NEB 04/13/24 16:15 Cancel Ipratropium [place] 0.5 mg Q4HPRN PRN NEB 04/13/24 16:15 Cancel Lorazepam 1 mg Q5MINP PRN IV 04/14/24 21:15 Laboratory Results Laboratory Tests 04/14/24 07:45 Coagulation Test 04/14/24 15:12 D-Dimer, Quantitative 11.05 mg/L FEU (0.0-0.49) H Urinalysis Test 04/14/24 16:45 Urine Color Yellow (Yellow) Urine Clarity Clear (Clear) Urine pH 5.5 (5.0-9.0) Urine Specific [place] 1.019 (1.001-1.035) Urine Protein Trace (Negative) H Urine Ketones Negative (Negative) Urine Blood 2+ /uL (Negative) H Urine Nitrite Negative (Negative) Urine Bilirubin Negative (Negative) Urine Urobilinogen Normal mg/dL (Negative) Urine Leukocyte Esterase Negative /uL (Negative) Urine RBC 72 /hpf (0 - 4) Urine Microscopic WBC 1 /HPF (0-5) Urine Squamous Epithelial Cells Few /hpf (<5) Urine Bacteria None seen /hpf (None Seen) Urine Yeast (Budding) Occasional /hpf (None Urine Glucose Normal mg/dL (Normal) Microbiology Microbiology Date/Time Source Procedure Growth Status 04/14/24 16:45 Voided Urine Urine Culture - Preliminary Resulted 04/14/24 07:45 Blood Blood Culture - Preliminary NO GROWTH AFTER 24 HOURS OF INCUBATION. Resulted Labs and/or images reviewed: Labs reviewed by me, Image(s) reviewed by me Assessment/Plan Assessment/Plan Sepsis secondary to community-acquired pneumonia blood cultures negative, urine cultures negative Right lower lobe pneumonia: Rocephin azithromycin albuterol Atrovent med-neb Acute metabolic encephalopathy Possible seizures: CT head negative Neurology consult appreciated, placed on Dilantin on 100 mg PO TID, EEG pending Severe Dementia Hypertension History of throat cancer diagnosed 8 yrs ago Hypercholesterolemia History of seizures Patient is hospice revoked Time spent 65 minutes Patient is full code Advanced care planning time 20 minutes Daughter and power of prosecuting attorney Sergio [phone] who is also floor space allocator of [facility] facility ,pts son Terrence [phone] at the bedside Plan discussed with: Patient My Orders Orders - ALONDRA MARCUM MD Procedure Category Date Status Time * Neurology Consult CONS 04/14/24 Transmitted 15:03 Straight Cath Patient ORDERS 04/14/24 Transmitted 15:03 Date of Service: Apr 15, 2024 Billing Provider: ALONDRA MARCUM MD Common Visit Codes: [id number] INP/OBS CARE(HIGH) ALONDRA MARCUM MD Apr 15, 2024 10:11
[2024-04-15 13:08] LABS: Barbiturate Scree,Urine Pos (NEGATIVE); Opiate Scree,Urine Neg (NEGATIVE)
[2024-04-15 13:13] LABS: Amphetamine Screen, Urine Neg (NEGATIVE); Benzodiazephine Screen, Urine Neg (NEGATIVE); Cocaine Screen, Urine Neg (NEGATIVE); Phencyclidine Screen, Urine Neg (NEGATIVE)
[2024-04-15 13:35] LABS: Cannabinoid Screen, Urine Neg (NEGATIVE)
[2024-04-16 01:00] VITALS: BP 112/48; PULSE 90; RESP 12; TEMP 98.5; O2SAT 95
[2024-04-16 04:53] VITALS: BP 117/73; PULSE 92; RESP 13; TEMP 98.2; O2SAT 97
[2024-04-16 08:30] VITALS: PULSE 89
[2024-04-16 09:04] VITALS: BP 124/64; PULSE 95; RESP 16; TEMP 98.2; O2SAT 94
[2024-04-16] MEDS ORDERED: AZIT500T66 PO (09:19)
--- NOTE | 2024-04-16 09:23 | DVHDS2 ---
Discharge Summary Date of Admission Apr 13, 2024 at 16:00 Date of Discharge: Apr 16, 2024 Admitting Diagnosis Shortness of breaths Wounds: None Labs/Diagnostic Data: Laboratory Results Test 04/15/24 07:10 04/14/24 16:45 04/14/24 16:05 04/14/24 15:12 Phenytoin (Dilantin) Level 7.0 ug/mL (10-20) Urine Color Yellow (Yellow) Urine Clarity Clear (Clear) Urine pH 5.5 (5.0-9.0) Urine Specific [place] 1.019 (1.001-1.035) Urine Protein Trace (Negative) Urine Ketones Negative (Negative) Urine Blood 2+ /uL (Negative) Urine Nitrite Negative (Negative) Urine Bilirubin Negative (Negative) Urine Urobilinogen Normal mg/dL (Negative) Urine Leukocyte Esterase Negative /uL (Negative) Urine RBC 72 /hpf (0 - 4) Urine Microscopic WBC 1 /HPF (0-5) Urine Squamous Epithelial Cells Few /hpf (<5) Urine Bacteria None seen /hpf (None Seen) Urine Yeast (Budding) Occasional /hpf (None Urine Glucose Normal mg/dL (Normal) Urine Opiates Screen Neg (NEGATIVE) Urine Fentanyl Screen Neg (NEGATIVE) Urine Barbiturates Screen Pos (NEGATIVE) Urine Phencyclidine Screen Neg (NEGATIVE) Urine Amphetamines Screen Neg (NEGATIVE) Urine Benzodiazepines Screen Neg (NEGATIVE) Urine Cocaine Screen Neg (NEGATIVE) Urine Cannabinoids Screen Neg (NEGATIVE) Influenza Type A Antigen Negative (Negative) Influenza Type B Antigen Negative (Negative) SARS-CoV-2 Antigen (Rapid) Negative (NEGATIVE) D-Dimer, Quantitative 11.05 mg/L FEU (0.0-0.49) Test 04/14/24 07:45 White Blood Count 10.9 10^3/uL (4.4-10.8) Red Blood Count 3.63 10^6/uL (4.0-5.20) Hemoglobin 8.6 g/dL (12.2-16.2) Hematocrit 26.7 % (36.0-46.0) Mean Corpuscular Volume 73.6 fL (80.0-100.0) Mean Corpuscular Hemoglobin 23.6 pg (28.0-32.0) Mean Corpuscular Hemoglobin Concent 32.1 g/dL (32.0-36.0) Red Cell Distribution Width 17.2 % (11.8-14.3) Platelet Count 305 10^3/uL (140-450) Mean Platelet Volume 7.1 fL (6.9-10.8) Neutrophils (%) (Auto) 82.4 % (37.0-80.0) Lymphocytes (%) (Auto) 9.8 % (10.0-50.0) Monocytes (%) (Auto) 7.3 % (0.0-12.0) Eosinophils (%) (Auto) 0.3 % (0.0-7.0) Basophils (%) (Auto) 0.2 % (0.0-2.0) Neutrophils # (Auto) 9.0 10 ^3/uL (1.6-8.6) Lymphocytes # (Auto) 1.1 10 ^3/uL (0.4-5.4) Monocytes # (Auto) 0.8 10 ^3/uL (0-1.3) Eosinophils # (Auto) 0 10 ^3/uL (0-0.8) Basophils # (Auto) 0 10 ^3/uL (0-0.2) Nucleated Red Blood Cells 0.0 % Sodium Level 141 mmol/L (136-145) Potassium Level 3.8 mmol/L (3.5-5.1) Chloride Level 109 mmol/L (98-107) Carbon Dioxide Level 24 mmol/L (20-31) Anion Gap 8 (5-15) Blood Urea Nitrogen 14 mg/dL (9-23) Creatinine 0.60 mg/dL (0.550-1.02) Glomerular Filtration Rate Calc 91 mL/min (>90) BUN/Creatinine Ratio 23.3 (10.0-20.0) Serum Glucose 74 mg/dL (74-106) Lactic Acid Level 1.4 mmol/L (0.4-2.0) Calcium Level 8.6 mg/dL (8.7-10.4) Total Bilirubin 0.3 mg/dL (0.2-1.0) Aspartate Amino Transferase (AST) 23 U/L (13-40) Alanine Aminotransferase (ALT) 15 U/L (7-40) Alkaline Phosphatase 82 U/L (46-116) Troponin I High Sensitivity 3 ng/L (</=34) Total Protein 6.3 g/dL (5.7-8.2) Albumin 3.0 g/dL (3.2-4.8) Vitamin B12 Level 748 pg/mL (211-911) Folic Acid 12.71 ng/mL (>5.38) Thyroid Stimulating Hormone (TSH) 0.73 uIU/mL (0.55-4.78) Free Thyroxine (T4) Calculated 0.62 ng/dL (0.89-1.76) Other Laboratory Tests 04/14/24 07:45 Brief Hx & Hospital Course: 79-year-old female with a history of severe dementia hypertension history of throat cancer diagnosed eight years ago hypercholesterolemia history of seizures on hospice burden by family members for shortness of breaths found to have community-acquired pneumonia. Chest x-ray showed right lower lobe pneumonia started on Rocephin azithromycin albuterol Atrovent med-nebs. Blood cultures negative urine cultures negative. Evelia test negative . Rapid flu test negative. CT head negative Neurology consult by Dr. Thakur appreciated continued on home medications Dilantin 100 mg PO TID. At the time of discharge patient is alert awake oriented x3 stable vital signs on room air. Discharged home to resume previous home medications prescription for azithromycin for pneumonia transmitted to the pharmacy Consults/Reason for consult None Operations or Procedures None Condition at Discharge: Fair Final Diagnosis/Problems List Sepsis secondary to community-acquired pneumonia blood cultures negative, urine cultures negative Right lower lobe pneumonia: Rocephin azithromycin albuterol Atrovent med-neb Acute metabolic encephalopathy Possible seizures: CT head negative Neurology consult appreciated, placed on Dilantin on 100 mg PO TID, EEG pending Severe Dementia Hypertension History of throat cancer diagnosed 8 yrs ago Hypercholesterolemia History of seizures Discharge Disposition: Hospice - Home Discharge Instruct/Medications Diet: Cardiac 2g Na,low cholest Activity: No Restrictions, As Tolerated Follow Up/Referral: Follow up with the hospice Medications: Azithromycin Transmitted to the pharmacy 39 (Time taken for discharge summary 39 minutes) Discharge Statement: "Patient was advised to return to the ER or call 911 if any headaches, dizziness, shortness of breath, chest pain, abdominal pain, bleeding, fevers, or worsening of medical condition. Patient was counseled about treatment plan, medications, possible side effects, patientverbalized understanding. All questions were answered to the best of my ability. This discharge took greater then 30 minutes in planning, reviewing documentation, counseling the patient, and discussing with other team members." ASSESSMENT ASSESSMENT Assessment Sepsis secondary to community-acquired pneumonia blood cultures negative, urine cultures negative Right lower lobe pneumonia: Rocephin azithromycin albuterol Atrovent [facility] Acute metabolic encephalopathy Possible seizures: CT head negative Neurology consult appreciated, placed on Dilantin on 100 mg PO TID, EEG pending Severe Dementia Hypertension History of throat cancer diagnosed 8 yrs ago Hypercholesterolemia History of seizures Date of Service: Apr 16, 2024 Billing Provider: ALONDRA MARCUM MD Common Visit Codes: [id number] DISCH DAY >30min ALONDRA MARCUM MD Apr 16, 2024 09:23
[2024-04-16 12:40] VITALS: BP 123/71; PULSE 90; RESP 16; TEMP 98.4; O2SAT 98
--- NOTE | 2024-04-17 23:27 | DVHEEG2 ---
Neurology EEG Procedural Note Procedural Note EXAM DATE: 04/15/2023 REFERRING DOCTOR: Dr. Odom TECHNIQUE: Eighteen channels of EEG, 2 channels of EOG, and 1 channel of EKG were recorded using the [employer] 10/20 system. CLINICAL DATA: The patient was referred for an EEG evaluation for the evidence of seizure disorder. MEDICATIONS: See chart BACKGROUND ACTIVITY: While the patient was awake, the background activity consisted of fairly regulated 7-8 Hz rhythmic waveforms, symmetrically distributed over both posterior quadrants and was reactive to external stimuli, intermixed with this was diffuse low amplitude theta activity over both hemispheres. ACTIVATION: Hyperventilation: Not done Photic Stimulation: Not done Sleep: Not seen IMPRESSION: This is a mildly abnormal EEG, this EEG is seen in mild cerebral dysfunction due to metabolic/hypoxic encephalopathy or medication effect, please correlate clinically The EKG channel showed a regular heart rate of 96/[place] [address] CLIFTON ODOM MD Apr 17, 2024 23:27
== END 2024-04-16 15:20 | disposition hospice, home (50) | DRG 871 ==
LOC: EDUNIT# 07:24 → ER 07:24 → EDBD 07:24 → TELE 16:00 → TELE-WESTW 16:04 → CENTRAL 04-14 15:18 → OVERFLOW 04-14 15:23 → WEST WING 04-14 15:42 → CENTRAL 04-14 15:49 → OVERFLOW 04-15 12:47 → TELE-CENTR 04-15 12:53
PROVIDERS: ADMIT Nurse Practitioner Family; ATTEND Family Medicine
DX: A41.9 Sepsis, unspecified organism (principal); G93.41 Metabolic encephalopathy; J18.9 Pneumonia, unspecified organism; I10 Essential (primary) hypertension; Z51.5 Encounter for palliative care; Z20.822 Contact with and (suspected) exposure to COVID-19; G40.409 Other generalized epilepsy and epileptic syndromes, not intractable, without status epilepticus; E78.00 Pure hypercholesterolemia, unspecified; F02.C0 Dementia in other diseases classified elsewhere, severe, without behavioral disturbance, psychotic disturbance, mood disturbance, and anxiety; Z87.891 Personal history of nicotine dependence; Z85.819 Personal history of malignant neoplasm of unspecified site of lip, oral cavity, and pharynx; Z83.3 Family history of diabetes mellitus; Z79.899 Other long term (current) drug therapy
CPT/HCPCS: 36415; 70450; 71045; 80048; 80053; 80185; 80307; 81001; 82607; 82746; 83605; 84439; 84443; 84484; 85025; 85379; 87040; 87086; 87426; 87804; 93005; 95819; 99291; G0378

== ENCOUNTER 2024-05-03 05:21 | Emergency (ER) | payer OTHER ==
[~2024-05-03] VITALS: Ht 157.5 cm; Wt 59.1 kg
[~2024-05-03 05:21] MED LIST changes: +AMLO1TAB23 PO; +ASPI-325 PO; +AZIT500T66 PO; +FURO40TA4 PO; +LOS25T PO; +METF-370 PO; -PHEN100C; +PHEN1CAP38 PO
[2024-05-03 06:40] VITALS: PULSE 73; RESP 18; O2SAT 99
--- NOTE | 2024-05-03 07:14 | ED.PDOC ---
History of Present Illness HPI Comments 79-year-old female brought in by EMS presents with a chief complaint of skin tear to lower back. Per EMS, family called EMS due to finding a skin tear on patients lower back. Family not at bedside to elaborate further on patients condition and medical history. Patient has Dementia and is A&Ox2 at baseline. P padma historian. Patient has no stated complaints at this time. Chief Complaint: Wound Check Time Seen by MD: 07:05 Primary Care Provider: DENIES Reviewed Notes: Medications, Allergies Allergies: Coded Allergies: NO KNOWN ALLERGIES (Unverified , 10/04/20) Home Meds Active Scripts Azithromycin (Azithromycin) 500 Mg Tab, 1 TAB PO DAILY, #10 TAB Prov:ALONDRA MARCUM MD 04/16/24 Hydrocodone-Acetaminophen (Hydrocodone Bitartrate/AC 5-325 mg) 1 Tab Tab, 1 TAB PO BID PRN, #10 TAB Prov:CHALO GAGNON 11/29/23 Reported Medications Phenytoin Sodium (DILANTIN CAPSULE) 100 Mg Cp, 1 CAP PO TID 04/13/24 Aspirin (Aspirin Low Dose) 81 Mg Tab, 1 TAB PO DAILY 04/13/24 Furosemide (Furosemide) 40 Mg Tab, 1 TAB PO DAILY 04/13/24 Losartan Potassium (Losartan Potassium) 25 Mg Tab, 1 TAB PO DAILY 04/13/24 Amlodipine Besylate (Amlodipine Besylate) 10 Mg Tab, 1 TAB PO DAILY 04/13/24 Metformin Hydrochloride (Metformin Hcl) 500 Mg Tab, 1 TAB PO DAILY 04/13/24 Nitroglycerin (Nitroglycerin) 0.4 Mg Sl 05/01/11 Information Source: Emergency Med Personnel Mode of Arrival: EMS Severity: Moderate Timing: Minutes Duration: Since onset Prehospital treatment: None Past Medical History PAST MEDICAL HISTORY: Angina, Dementia, High Lipids, HTN, Seizures Surgical History: Denies all surgeries NOUGAT CUTTER MACHINE History: Denies all NOUGAT CUTTER MACHINE Hx Family History Family History: No family hx of HTN Social History Smoker: Quit Greater Than 1 Year Alcohol: Rarely Drugs: Denies Drug Use Lives In: Assisted Care Constitutional: denies: chills, diaphoresis, fatigue, fever, malaise, sweats, weakness, others EENTM: denies: blurred vision, double vision, ear bleeding, ear discharge, ear drainage, ear pain, ear ringing, eye pain, eye redness, hearing loss, mouth pain, mouth swelling, nasal discharge, nose bleeding, nose congestion, nose pain, photophobia, tearing, throat pain, throat swelling, voice changes, others Respiratory: denies: cough, hemoptysis, orthopnea, SOB at rest, shortness of breath, SOB with excertion, stridor, wheezing, others Cardiovascular: denies: chest pain, dizzy spells, diaphoresis, Dyspnea on exertion, edema, irregular heart beat, left arm pain, lightheadedness, palpitations, PND, syncope, others Gastrointestinal: denies: abdomen distended, abdominal pain, blood streaked bowels, constipated, diarrhea, dysphagia, difficulty swallowing, hematemesis, melena, nausea, poor appetite, poor fluid intake, rectal bleeding, rectal pain, vomiting, others Genitourinary: denies: abnormal vagina bleeding, burning, dyspareunia, dysuria, flank pain, frequency, hematuria, incontinence, pain, , vagina discharge, urgency, others Neurological: denies: dizziness, fainting, headache, left sided numbness, left sided weakness, numbness, paresthesia, pre-existing deficit, right sided numbness, right sided weakness, seizure, speech problems, tingling, tremors, weakness, others Musculoskeletal: denies: back pain, gout, joint pain, joint swelling, muscle pain, muscle stiffness, neck pain, others Integumetry: reports: wounds (SKIN TEAR TO LOWER BACK ); denies: bruises, change in color, change in hair/nails, dryness, laceration, lesions, lumps, rash, others Allergic/Immunocompromised: denies: Difficulty Healing, Frequent Infections, Hives, Itching, others Hematologic/Lymphatic: denies: anemia, blood clots, easy bleeding, easy bruising, swollen glands, others Endocrine: denies: excessive hunger, excessive sweating, excessive thirst, excessive urination, flushing, intolerance to cold, intolerance to heat, unexplained weight gain, unexplained weight loss, others Psychiatric: denies: anxiety, bipolar disorder, depression, hopeless, panic disorder, schizophrenia, sleepless, suicidal, others All Other Systems: Reviewed and Negative Physical Exam General Appearance: No Apparent Distress, Thin, Other (SKIN TEAR TO LOWER BACK ) HEENT: NOT DONE Neck: Full Range of Motion, Non-Tender, Normal, Normal Inspection Respiratory: Chest Non-Tender, Lungs Clear, No Accessory Muscle Use, No Respiratory Distress, Normal Breath Sounds Cardiovascular: No Edema, No JVD, No Murmur, No Gallop, Normal Peripheral Pulses, Regular Rate/Rhythm Breast Exam: Deferred Gastrointestinal: No Organomegaly, Non Tender, No Pulsatile Mass, Normal Bowel Sounds, Soft Genitalia: Deferred Pelvic: Deferred Rectal: Deferred Extremities: No calf tenderness, Normal capillary refill, Normal inspection, Normal range of motion, Non-tender, No pedal edema Neurologic: Alert, Normal Affect, Other (A&OX2, AWAKE, ALERT) Cerebellar Function: NOT DONE Reflexes: NOT DONE Skin: Wounds (Small 1 cm skin tear to the sacrum. No evidence of decubitus ulcer. No erythema no evidence of infection) Lymphatic: NOT DONE Was a procedure done? Was a procedure done?: No Differential Dx Considerations may include: SACRAL WOUND, SKIN TEAR X-Ray, Labs, Meds, VS Vital Signs Date Time Temp Pulse Resp B/P (MAP) Pulse Ox O2 Delivery O2 Flow Rate FiO2 05/03/24 06:40 73 18 99 Room Air* 0 21 05/03/24 06:40 97.3 73 18 108/54 (72) 99 97.3 05/03/24 05:24 98.4 76 18 105/59 (74) 98 79-year-old female presents here with a skin tear to her sacrum. No decubitus ulcer at this time. This time the wound has been dressed by nursing staff with foam. Family has been given additional supplies and care instructions has been given to the family for wound care. At this time I have discharging the patient home. Advised her to follow up with the PCP in 2-3 days and return to the ER if symptoms worsen or persist. Patient currently A&O x2 in his at normal mental baseline. Time of 1ST Reevaluation: 07:30 Reevaluation 1ST: Unchanged Patient Education/Counseling: Diagnosis, Treatment, Prognosis Family Education/Counseling: Diagnosis, Treatment, Prognosis Departure 1 Departure Time of Disposition: 07:45 Impression: Primary Impression: Skin tear Disposition: HOME / SELF CARE / HOMELESS Condition: Fair Discharged With: Self Critical Care Note Critical Care Time?: No Stability Stability form required: No Heart Score Heart Score: Heart Score Response (Comments) Value History N/A 0 EKG N/A 0 Age N/A 0 Risk Factors N/A 0 Troponin N/A 0 Total 0 I personally scribed for JESUS MELGOZA MD ([email or web address]) on 05/03/24 at 07:14. Electronically submitted by Antonio Delgado ([email or web address]). JESUS MELGOZA MD May 03, 2024 07:14
[2024-05-03 08:00] VITALS: TEMP 97.5
[2024-05-03 08:11] VITALS: PULSE 73; RESP 18; O2SAT 99
[2024-05-03 10:00] VITALS: BP 92/43; PULSE 80; RESP 19; O2SAT 100
== END 2024-05-03 13:08 | disposition home or self-care (01) ==
LOC: ER 05:21 → EDUNIT# 05:21 → EDBD 05:21 → ER 13:07
DX: S31.010A Laceration without foreign body of lower back and pelvis without penetration into retroperitoneum, initial encounter (principal); I10 Essential (primary) hypertension; I20.9 Angina pectoris, unspecified; E78.5 Hyperlipidemia, unspecified; F03.90 Unspecified dementia, unspecified severity, without behavioral disturbance, psychotic disturbance, mood disturbance, and anxiety; Z87.891 Personal history of nicotine dependence; Z79.82 Long term (current) use of aspirin; Z79.84 Long term (current) use of oral hypoglycemic drugs; Z79.899 Other long term (current) drug therapy; X58.XXXA Exposure to other specified factors, initial encounter; Y93.89 Activity, other specified; Y92.89 Other specified places as the place of occurrence of the external cause; Y99.8 Other external cause status

== ENCOUNTER 2024-05-11 13:17 | Inpatient (IN) | payer OTHER, MEDICARE ==
[~2024-05-11] VITALS: Ht 170.2 cm; Wt 43.0 kg
--- NOTE | 2024-05-11 14:21 | ECG ---
[facility] Test Date: 2024-05-11 Test Time: 14:20:10 Pat Name: DOT LAY Department: ER Room: 0284T Gender: F Labor Relations Analyst: SUREKHA : 1945 Requested By: TIM LIMA Order Number: [id number] Reading MD: Alber Bateman Measurements Intervals [place] Rate: 96 P: 82 WI: 118 QRS: 47 QRSD: 86 T: 108 QT: 360 QTc: 455 Interpretive Statements Sinus rhythm Ventricular trigeminy Borderline short WI interval Anteroseptal infarct, age indeterminate Electronically Signed On 05-16-2024 18:23:21 PDT by Alber Bateman Please click the below link to view image of tracing.
--- NOTE | 2024-05-11 14:34 | DVH ---
CLINICAL INFORMATION: 79 years old, Female; chest pain. TECHNIQUE: Single AP portable chest radiograph was obtained. COMPARISON: XY CHEST PORTABLE on DOS: 04/13/24, CHEST PORTABLE on DOS: 10/04/20 FINDINGS: Focal consolidation in the lateral aspect of the right upper lobe, similar to the prior exam. Previou sly seen right pleural effusion with overlying atelectasis and consolidation has resolved since the p rior exam. No other significant interval change. No pneumothorax. IMPRESSION: 1. Right upper lobe airspace consolidation is minimally changed compared to the prior exam. 2. Previously seen right pleural effusion with overlying atelectasis and consolidation has resolved s ghulam the prior exam.
[2024-05-11 14:48] LABS: Basophils # (auto) 0 10 ^3/uL (0-0.2); Basophils % (auto) 0.1 % (0.0-2.0); Eosinophils # (auto) 0 10 ^3/uL (0-0.8); Eosinophils % (auto) 0.3 % (0.0-7.0); Lymphocytes # (auto) 0.9 10 ^3/uL (0.4-5.4); Lymphocytes % (auto) 9.9 % (10.0-50.0); Mean Corpuscular Hemoglobin 23.2 pg (28.0-32.0)
[2024-05-11 14:49] LABS: Hematocrit 25.9 % (36.0-46.0); Hemoglobin 8.2 g/dL (12.2-16.2); Mean Corpuscular Hgb Conc. 31.8 g/dL (32.0-36.0); Monocytes # (auto) 0.3 10 ^3/uL (0-1.3); Monocytes % (auto) 3.8 % (0.0-12.0); Neutrophils # (auto) 7.8 10 ^3/uL (1.6-8.6); Neutrophils % (auto) 85.9 % (37.0-80.0); Platelet Count (auto) 242 10^3/uL (140-450); Red Blood Cells 3.54 10^6/uL (4.0-5.20); Red Cell Distribution Width 19.5 % (11.8-14.3)
--- NOTE | 2024-05-11 14:50 | ED.PDOC ---
HPI Comments This is an 79-year-old female who comes in with chief complaint of chest pain for the past two days. The patient was states that the chest pain is substernal. The patient was also having some pain to the lower back area around some bed sores. She has been having some weakness for about a week. The patient has nitroglycerin at home but no nitroglycerin was given at this time. She states that the pain was a 10/10 when she experienced it. EMS were called and the patient was transported to our facility. Chief Complaint: Chest Pain Time Seen by MD: :21 Primary Care Provider: ZEHRA Reviewed Notes: Nurses Notes, Medications, Allergies (No allergies to medications) Allergies: Coded Allergies: NO KNOWN ALLERGIES (Unverified , 10/04/20) Home Meds Active Scripts Azithromycin (Azithromycin) 500 Mg Tab, 1 TAB PO DAILY, #10 TAB Prov:ALONDRA MARCUM MD 04/16/24 Hydrocodone-Acetaminophen (Hydrocodone Bitartrate/AC 5-325 mg) 1 Tab Tab, 1 TAB PO BID PRN, #10 TAB Prov:CHALO GAGNON 11/29/23 Reported Medications Phenytoin Sodium (DILANTIN CAPSULE) 100 Mg Cp, 1 CAP PO TID 04/13/24 Aspirin (Aspirin Low Dose) 81 Mg Tab, 1 TAB PO DAILY 04/13/24 Furosemide (Furosemide) 40 Mg Tab, 1 TAB PO DAILY 04/13/24 Losartan Potassium (Losartan Potassium) 25 Mg Tab, 1 TAB PO DAILY 04/13/24 Amlodipine Besylate (Amlodipine Besylate) 10 Mg Tab, 1 TAB PO DAILY 04/13/24 Metformin Hydrochloride (Metformin Hcl) 500 Mg Tab, 1 TAB PO DAILY 04/13/24 Nitroglycerin (Nitroglycerin) 0.4 Mg Sl 05/01/11 Information Source: Patient Mode of Arrival: EMS Severity: Moderate Duration: Since onset Past Medical History PAST MEDICAL HISTORY: Angina, Dementia, High Lipids, HTN, Seizures Surgical History: Denies all surgeries PIE ICER MACHINE History: Denies all PIE ICER MACHINE Hx Family History Family History: No family hx of HTN Social History Smoker: Quit Greater Than 1 Year Alcohol: Rarely Drugs: Denies Drug Use Lives In: Assisted Care Physical Exam General Appearance: Cachectic HEENT: Normal ENT Inspection, Pharynx Normal, TMs Normal Neck: Full Range of Motion, Non-Tender, Normal, Normal Inspection Respiratory: Chest Non-Tender, Decreased Breath Sounds, Lungs Clear, No Accessory Muscle Use Cardiovascular: No Edema, No JVD, No Murmur, No Gallop, Normal Peripheral Pulses, Regular Rate/Rhythm Breast Exam: Deferred Gastrointestinal: No Organomegaly, Non Tender, No Pulsatile Mass, Normal Bowel Sounds, Soft Genitalia: Deferred Pelvic: Deferred Rectal: Deferred Extremities: No calf tenderness, Normal capillary refill, Normal inspection, Normal range of motion, Non-tender, No pedal edema Musculoskeletal : Apperance: Normal Neurologic: Alert, clock repairer II-XII nml as Tested, Motor Weakness, Normal Affect, Normal Mood, No Sensory Deficits Cerebellar Function: Normal Reflexes: Normal Skin: Dry, Pallor, Warm Lymphatic: No Adenopathy EKG EKG : Pulse Rate (adult): 54 [place]: Normal Cardiac Rhythm: NSR Block: None ST: Nonsp (Low voltage) Was a procedure done? Was a procedure done?: No CP Differential Dx Differential Diagnosis: Angina, [place], Pulmonary Embolus Differential Diagnosis: CHF Differential Diagnosis: Pericarditis X-Ray, Labs, Meds, VS Vital Signs Date Time Temp Pulse Resp B/P (MAP) Pulse Ox O2 Delivery O2 Flow Rate FiO2 05/11/24 14:20 96 05/11/24 13:26 97.7 101 18 117/84 (95) 100 05/11/24 13:23 103 Lab Test 05/11/24 14:40 05/11/24 14:30 Range/Units Urine Color Yellow Yellow Urine Clarity Clear Clear Urine pH 5.5 5.0-9.0 Urine Specific [place] 1.018 1.001-1.035 Urine Protein Trace H Negative Urine Ketones Negative Negative Urine Blood Negative Negative /uL Urine Nitrite Negative Negative Urine Bilirubin Negative Negative Urine Urobilinogen Normal Negative mg/dL Urine Leukocyte Esterase Negative Negative /uL Urine RBC 1 0 - 4 /hpf Urine Microscopic WBC < 1 0-5 /HPF Urine Squamous Epithelial Cells Few <5 /hpf Urine Bacteria Few H None Seen /hpf Urine Hyaline Casts Few 0 - 2 /lpf Urine Glucose Normal Normal mg/dL White Blood Count 9.0 4.4-10.8 10^3/uL Red Blood Count 3.54 L 4.0-5.20 10^6/uL Hemoglobin 8.2 L 12.2-16.2 g/dL Hematocrit 25.9 L 36.0-46.0 % Mean Corpuscular Volume 73.0 L 80.0-100.0 fL Mean Corpuscular Hemoglobin 23.2 L 28.0-32.0 pg Mean Corpuscular Hemoglobin Concent 31.8 L 32.0-36.0 g/dL Red Cell Distribution Width 19.5 H 11.8-14.3 % Platelet Count 242 140-450 10^3/uL Mean Platelet Volume 7.2 6.9-10.8 fL Neutrophils (%) (Auto) 85.9 H 37.0-80.0 % Lymphocytes (%) (Auto) 9.9 L 10.0-50.0 % Monocytes (%) (Auto) 3.8 0.0-12.0 % Eosinophils (%) (Auto) 0.3 0.0-7.0 % Basophils (%) (Auto) 0.1 0.0-2.0 % Neutrophils # (Auto) 7.8 1.6-8.6 10 ^3/uL Lymphocytes # (Auto) 0.9 0.4-5.4 10 ^3/uL Monocytes # (Auto) 0.3 0-1.3 10 ^3/uL Eosinophils # (Auto) 0 0-0.8 10 ^3/uL Basophils # (Auto) 0 0-0.2 10 ^3/uL Nucleated Red Blood Cells 0.0 % Sodium Level 146 H 136-145 mmol/L Potassium Level 3.7 3.5-5.1 mmol/L Chloride Level 113 H 98-107 mmol/L Carbon Dioxide Level 22 20-31 mmol/L Anion Gap 11 5-15 Blood Urea Nitrogen 18 9-23 mg/dL Creatinine 0.50 L 0.550-1.02 mg/dL Glomerular Filtration Rate Calc 95 >90 mL/min BUN/Creatinine Ratio 36.0 H 10.0-20.0 Serum Glucose 109 H 74-106 mg/dL Calcium Level 8.5 L 8.7-10.4 mg/dL Troponin I High Sensitivity 3 L </=34 ng/L B-Type Natriuretic Peptide 20.95 0-100 pg/mL Lipase 31 12-53 U/L Current Medications Medications (Trade) Dose Ordered Sig/Deloris Route Start Time Stop Time Status Last Admin Sodium Chloride 500 ml @ 500 mls/hr Q1H ONCE IV 05/11/24 15:15 05/11/24 16:14 05/11/24 15:16 IV Hep-Lock was established The patient was given normal saline at a 500 cc bolus The CBC shows anemia with a hemoglobin of 8.2 and hematocrit is 25.9 The chemistry panel is basically within normal limits The urine test is negative for UTI The chest x-ray shows: IMPRESSION: 1. Right upper lobe airspace consolidation is minimally changed compared to the prior exam. 2. Previously seen right pleural effusion with overlying atelectasis and consolidation has resolved since the prior exam. At this time, the patient was being admitted to the hospitalist Images Reviewed?: Images reviewed and evaluated by me Time of 1ST Reevaluation: 16:12 Reevaluation 1ST: Unchanged Patient Education/Counseling: Diagnosis, Treatment, Prognosis Family Education/Counseling: No Family Present Departure 1 Departure Time of Disposition: 16:13 Impression: Primary Impression: Severe anemia Additional Impressions: Acute chest pain Generalized weakness Disposition: ADMITTED INPATIENT Admit to: Tele Condition: Fair Critical Care Note Critical Care Time?: Yes (45 min-critical care time only) Stability Stability form required: Yes Unstable for transfer: Telemetry monitoring (Telemetry monitoring required), ED Physician Assesment (Clinical assesment) Heart Score Heart Score: Heart Score Response (Comments) Value History Moderate Suspicious 1 EKG Normal 0 Age >65 2 Risk Factors >3 or Hx ASHD 2 Troponin Normal limit 0 Total 5 ELISEO ONEAL MD May 11, 2024 14:50
[2024-05-11] MEDS: MORPHINE SULFATE 4 MG/ML SYR/VIAL IV ONE (14:55)
[2024-05-11 14:59] LABS: Potassium 3.7 mmol/L (3.5-5.1)
[2024-05-11 15:00] LABS: Anion Gap 11 (5-15); Carbon Dioxide 22 mmol/L (20-31)
[2024-05-11 15:02] LABS: Calcium 8.5 mg/dL (8.7-10.4); Chloride 113 mmol/L (98-107); Sodium 146 mmol/L (136-145)
[2024-05-11 15:05] LABS: Blood Urea Nitrogen 18 mg/dL (9-23)
[2024-05-11 15:06] LABS: Lipase 31 U/L (12-53)
[2024-05-11 15:07] LABS: Glucose 109 mg/dL (74-106)
[2024-05-11] MEDS: SODIUM CHLORIDE 0.9% 500 ML IV ONE (15:16)
[2024-05-11] MEDS ORDERED: DOCUSATE SOD 100 MG CAP PO PRN (15:30)
[2024-05-11] MEDS ORDERED: ONDANSETRON HCL 4 MG/2 ML VIAL IV PRN (15:30)
[2024-05-11] MEDS ORDERED: DEXTROSE (50%) 50ML SYRG IV PRN (15:30)
[2024-05-11] MEDS ORDERED: hydrALAZINE HCL 20 MG/ML VL IV PRN (15:30)
[2024-05-11 15:41] LABS: Urine Bacteria FEW /hpf (None Seen); Urine Blood Negative /uL (Negative); Urine Clarity Clear (Clear); Urine Color Yellow (Yellow); Urine Hyaline Cast FEW /lpf (0 - 2); Urine Protein, UAD TRACE (Negative); Urine Specific Gravity 1.018 (1.001-1.035); Urine Squamous Epithelial Cell FEW /hpf (<5); Urine Urobilinogen Normal (Negative); Urine WBC < 1 /HPF (0-5); Urine pH 5.5 (5.0-9.0)
--- NOTE | 2024-05-11 15:59 | DVHHP2 ---
History of Present Illness Reason for Visit: Chest pain History of Present Illness The patient is a 79-year-old female with past medical history of dementia, angina, hyperlipidemia, seizures, and hypertension who presented to [facility] ED with complaint of chest pain for the past 2 days. Patient reports symptoms progressively get worse with substernal chest pain, radiating to his lower back, rating 10/10 numeric scale, associated weakness, getting worse that prompted this visit. Patient was seen and evaluated in the ED, laboratory data shows WBC 9.0, hemoglobin 8.2, hematocrit 25.9, platelets 242, sodium 146, potassium 3.7, BUN 18, creatinine 0.50, GFR 95, glucose 109, lipase 31, troponin 3, calcium 8.5, BNP 20.95. Chest x-ray revealing right upper lobe airspace consolidation is minimally changed compared to the prior exam; previously seen right pleural effusion with overlying atelectasis and consolidation has resolved since the prior exam. Patient was given IV morphine sulfate 2 mg x 1, please see medication orders section in the computer. On my assessment, patient denied chest pain at this moment, no headache, no dizziness, no diarrhea, no nausea, no vomiting, no fever, no chills. Patient was admitted for further evaluation and medical management. Past Medical History Angina, Dementia, High Lipids, HTN, Seizures Past Surgical History Denies all surgeries Family History Reviewed, noncontributory to the management of this case. Past Social History The patient lives at home, denies smoking, alcohol or illicit drugs abuse. Review of Systems Constitutional: Yes: Weakness; No: Fever, Chills, Sweats, Malaise, Other Eyes: No: Pain, Vision change, Conjunctivae inflammation, Eyelid inflammation, Other, Redness ENT: No: Ear pain, Ear discharge, Nose pain, Nose discharge, Nose congestion, Mouth pain, Mouth swelling, Throat pain, Throat swelling, Other Respiratory: No: Cough, Dry, Shortness of breath, SOB with excertion, Wheezing, Hemoptysis, Pleuritic Pain, Sputum, Wheezing, Other Cardiovascular: Chest Pain; No: Palpitations, Orthopnea, Paroxysmal Noc. Dyspnea, Edema, Lt Headedness, Other Gastrointestinal: No: Nausea, Vomiting, Abdominal Pain, Diarrhea, Constipation, Melena, Hematochezia, Other Genitourinary: No Dysuria, No Frequency, No Incontinence, No Hematuria, No Retention, No Other Musculoskeletal: No: other, neck pain, shoulder pain, arm pain, back pain, hand pain, leg pain, foot pain Skin: No: Rash, Lesions, Jaundice, Bruising, Other Neurological: No: Weakness, Numbness, Incoordination, Change in speech, Confusion, Seizures, Other Allergies: Coded Allergies: NO KNOWN ALLERGIES (Unverified , 10/04/20) Medications Current Medications Medications Dose Ordered Sig/Deloris Route Start Time Stop Time Status Last Admin Dose Admin Aspirin 81 mg DAILY PO 05/12/24 10:00 Amlodipine Besylate 5 mg DAILY PO 05/12/24 10:00 Hydralazine HCl 10 mg Q6HP PRN IV 05/11/24 15:30 Phenytoin Sodium 100 mg Q8HR PO 05/11/24 22:00 Diagnostic Test (Pha) 1 strip ACHS 05/11/24 17:00 Insulin Human Regular ACHS SC 05/11/24 17:00 Dextrose 50 ml UD PRN IV 05/11/24 15:30 Sodium Chloride 10 ml Q8HR IV 05/11/24 22:00 Acetaminophen/ Hydrocodone Bitart 1 tab Q4HP PRN PO 05/11/24 15:30 Ondansetron HCl 4 mg Q4HP PRN IV 05/11/24 15:30 Docusate Sodium 100 mg BIDPRN PRN PO 05/11/24 15:30 Acetaminophen 650 mg Q6HP PRN PO 05/11/24 15:30 Exam Vital Signs Vital Signs Date Time Temp Pulse Resp B/P (MAP) Pulse Ox O2 Delivery O2 Flow Rate FiO2 05/11/24 14:20 96 05/11/24 13:26 97.7 18 117/84 (95) 100 General Appearance: Alert, Oriented X3, Cooperative, No acute distress HEENT: Atraumatic, PERRLA, EOMI, Mucous membr. moist/pink Respiratory: Clear to auscultation, Normal air movement Cardiovascular: Regular rate, Normal S1, Normal S2, No murmurs Abdominal: Normal bowel sounds, Soft, No tenderness, No hepatospenomegaly Extremities: No clubbing, No cyanosis, No edema, Normal pulses, No tenderness/swelling Skin: No rashes, No breakdown Neuro: Normal speech, Normal tone, Sensation intact, Cranial nerves 3-12 NL, Reflexes 2+, Other (Generalized weakness) Psych/Mental Status: Mental status NL, Mood NL Labs/Xrays Labs Test 05/11/24 14:40 05/11/24 14:30 Range/Units Urine Color Yellow Yellow Urine Clarity Clear Clear Urine pH 5.5 5.0-9.0 Urine Specific [place] 1.018 1.001-1.035 Urine Protein Trace H Negative Urine Ketones Negative Negative Urine Blood Negative Negative /uL Urine Nitrite Negative Negative Urine Bilirubin Negative Negative Urine Urobilinogen Normal Negative mg/dL Urine Leukocyte Esterase Negative Negative /uL Urine RBC 1 0 - 4 /hpf Urine Microscopic WBC < 1 0-5 /HPF Urine Squamous Epithelial Cells Few <5 /hpf Urine Bacteria Few H None Seen /hpf Urine Hyaline Casts Few 0 - 2 /lpf Urine Glucose Normal Normal mg/dL White Blood Count 9.0 4.4-10.8 10^3/uL Red Blood Count 3.54 L 4.0-5.20 10^6/uL Hemoglobin 8.2 L 12.2-16.2 g/dL Hematocrit 25.9 L 36.0-46.0 % Mean Corpuscular Volume 73.0 L 80.0-100.0 fL Mean Corpuscular Hemoglobin 23.2 L 28.0-32.0 pg Mean Corpuscular Hemoglobin Concent 31.8 L 32.0-36.0 g/dL Red Cell Distribution Width 19.5 H 11.8-14.3 % Platelet Count 242 140-450 10^3/uL Mean Platelet Volume 7.2 6.9-10.8 fL Neutrophils (%) (Auto) 85.9 H 37.0-80.0 % Lymphocytes (%) (Auto) 9.9 L 10.0-50.0 % Monocytes (%) (Auto) 3.8 0.0-12.0 % Eosinophils (%) (Auto) 0.3 0.0-7.0 % Basophils (%) (Auto) 0.1 0.0-2.0 % Neutrophils # (Auto) 7.8 1.6-8.6 10 ^3/uL Lymphocytes # (Auto) 0.9 0.4-5.4 10 ^3/uL Monocytes # (Auto) 0.3 0-1.3 10 ^3/uL Eosinophils # (Auto) 0 0-0.8 10 ^3/uL Basophils # (Auto) 0 0-0.2 10 ^3/uL Nucleated Red Blood Cells 0.0 % Sodium Level 146 H 136-145 mmol/L Potassium Level 3.7 3.5-5.1 mmol/L Chloride Level 113 H 98-107 mmol/L Carbon Dioxide Level 22 20-31 mmol/L Anion Gap 11 5-15 Blood Urea Nitrogen 18 9-23 mg/dL Creatinine 0.50 L 0.550-1.02 mg/dL Glomerular Filtration Rate Calc 95 >90 mL/min BUN/Creatinine Ratio 36.0 H 10.0-20.0 Serum Glucose 109 H 74-106 mg/dL Calcium Level 8.5 L 8.7-10.4 mg/dL Troponin I High Sensitivity 3 L </=34 ng/L B-Type Natriuretic Peptide 20.95 0-100 pg/mL Lipase 31 12-53 U/L PATIENT: DOT LAY ACCT: [id number] UNIT: [id number] : 1945 LOC: ER ROOM / BED: / AGE / SEX: 79 / F ADM STATUS: REG ER SERVICE 1325 ORDERING PHYSICIAN: ELISEO ONEAL MD PROCEDURE(s): CXRP - CHEST PORTABLE REASON: cp ORDER NUMBER(s): [id number], ACCESSION NUMBER(s): [id number] CLINICAL INFORMATION: 79 years old, Female; chest pain. TECHNIQUE: Single AP portable chest radiograph was obtained. COMPARISON: XY CHEST PORTABLE on DOS: 04/13/24, CHEST PORTABLE on DOS: 10/04/20 FINDINGS: Focal consolidation in the lateral aspect of the right upper lobe, similar to the prior exam. Previously seen right pleural effusion with overlying atelectasis and consolidation has resolved since the prior exam. No other significant interval change. No pneumothorax. IMPRESSION: 1. Right upper lobe airspace consolidation is minimally changed compared to the prior exam. 2. Previously seen right pleural effusion with overlying atelectasis and consol idation has resolved since the prior exam. Assessment/Plan Assessment/Plan Severe anemia Acute chest pain Generalized weakness Plan 1. Admit to telemetry unit 2. Breathing treatment 3. Pain control management 4. Management of fluids and electrolytes 5. Consultation for hospitalist 6. Diagnostic tests chest x-ray 7. DVT prophylaxis-on aspirin 8. Repeat labs CBC, CMP in a.m. 9. Continue with current medical management 10. Treatment plan discussed with patient and RN. Patient verbalized understanding. Plan discussed with: Patient, Other (RN) My Orders Orders - EMILY MEJIA DNP Procedure Category Date Status Time Consistent DIET 05/11/24 Transmitted Carb(Ccho)Diabetes Dinner Aspirin Tablet PHA 05/12/24 In Process 10:00 Amlodipine Tablet PHA 05/12/24 In Process (Norvasc Tablet) 10:00 Hydralazine Injection PHA 05/11/24 In Process (Apresoline Inject 15:30 Phenytoin Capsule PHA 05/11/24 In Process (Dilantin Capsule) 22:00 Phenytoin (Dilantin) LAB 05/11/24 Logged 15:16 Type And Screen BBK 05/11/24 Logged 15:16 Glucose Blood PHA 05/11/24 In Process (Accu-Chek Comfort 17:00 Insulin R (Human) PHA 05/11/24 In Process (Insulin R) 17:00 Dextrose 50% Syringe PHA 05/11/24 In Process 15:30 Allergies HEATH 05/11/24 In Process 15:16 Code Status CODE 05/11/24 Transmitted 15:16 Sodium Chloride Lock PHA 05/11/24 In Process (Saline Lock Ns) 22:00 Oxygen Per Hour RT 05/11/24 Transmitted 15:16 Hydrocodone-Acet PHA 05/11/24 In Process 5/325mg Tab (Christine 15:30 Ondansetron Hcl PHA 05/11/24 In Process (Zofran) 15:30 Docusate Sodium PHA 05/11/24 In Process Capsule (Colace 15:30 Fall Risk Precautions HEATH 05/11/[address] 15:16 Complete Blood Count LAB 05/12/24 Verified 04:00 Comprehensive LAB 05/12/24 Verified Metabolic Panel 04:00 Condition: Serious HEATH 05/11/24 In Process 15:16 Acetaminophen Tablet PHA 05/11/24 In Process (Tylenol Tablet) 15:30 Bedrest With Bathroom HEATH 05/11/24 In Process Privileg 15:16 Sequential HEATH 05/11/24 In Process Compression Device Problem List: (1) Severe anemia (2) Acute chest pain (3) Generalized weakness Date of Service: May 11, 2024 Billing Provider: EMILY MEJIA DNP Common Visit Codes: [id number] INP/OBS CARE (HIGH) EMILY MEJIA DNP May 11, 2024 15:59
[2024-05-11 16:00] VITALS: PULSE 73; RESP 16; O2SAT 94
[2024-05-11] MEDS ORDERED: MORPHINE SULFATE INJ 2 MG/ml SYRG IV PRN (16:00)
[2024-05-11] MEDS ORDERED: NITROGLYCERIN 0.4 MG SL TAB SL PRN (16:00)
[2024-05-11] MEDS: ACCU-CHEK COMFORT CURVE STRIP VI SCH (17:00)
[2024-05-11] MEDS: InsuLIN REG 1unit/0.01ml Soln (100units/ml) SC SCH (17:00)
[2024-05-11 20:00] VITALS: PULSE 98; RESP 17; O2SAT 97
[2024-05-11] MEDS: SODIUM CHLOR 0.9% PF (SALINE LOCK) 10ML VIAL/SYR IV SCH (21:28)
[2024-05-11] MEDS: PHENYTOIN SODIUM 100 MG CAP PO SCH (21:39)
[2024-05-11 21:58] VITALS: BP 91/47; PULSE 84; RESP 18; TEMP 96.1; O2SAT 93
[2024-05-11 22:04] VITALS: BP 91/47; PULSE 84; RESP 15; TEMP 96.1; O2SAT 93
[2024-05-11 22:17] VITALS: BP 91/47; PULSE 84; RESP 16; TEMP 96.1; O2SAT 93
[2024-05-12] VITALS (8 sets, daily range): BP systolic 93–125; BP diastolic 47–74; PULSE 81–105; RESP 15–18; TEMP 96.1–98.6; O2SAT 86–100
[2024-05-12] MEDS: ACETAMINOPHEN 325 MG TAB PO PRN (00:48)
[2024-05-12 07:20] LABS: Basophils # (auto) 0 10 ^3/uL (0-0.2); Basophils % (auto) 0.2 % (0.0-2.0); Eosinophils # (auto) 0 10 ^3/uL (0-0.8); Monocytes # (auto) 0.5 10 ^3/uL (0-1.3); Nucleated Red Blood Cells % 0.1 %; Red Cell Distribution Width 19.9 % (11.8-14.3)
[2024-05-12 07:22] LABS: Eosinophils % (auto) 0.2 % (0.0-7.0); Hematocrit 28.6 % (36.0-46.0); Hemoglobin 8.8 g/dL (12.2-16.2); Lymphocytes # (auto) 1.3 10 ^3/uL (0.4-5.4); Mean Corpuscular Hgb Conc. 30.9 g/dL (32.0-36.0); Mean Corpuscular Volume 74.2 fL (80.0-100.0); Monocytes % (auto) 4.6 % (0.0-12.0); Neutrophils # (auto) 8.8 10 ^3/uL (1.6-8.6); Platelet Count (auto) 268 10^3/uL (140-450); Red Blood Cells 3.85 10^6/uL (4.0-5.20); White Blood Cell 10.5 10^3/uL (4.4-10.8)
[2024-05-12 07:29] LABS: Alanine Aminotransferase 15 U/L (7-40); Alkaline Phosphatase 86 U/L (46-116); Anion Gap 11 (5-15); BUN/Creatinine Ratio 31.7 (10.0-20.0); Blood Urea Nitrogen 19 mg/dL (9-23); Calcium 8.8 mg/dL (8.7-10.4); Carbon Dioxide 22 mmol/L (20-31); Glucose 87 mg/dL (74-106); Potassium 3.7 mmol/L (3.5-5.1); Sodium 141 mmol/L (136-145)
[2024-05-12 07:30] LABS: Aspartate Aminotransferase 35 U/L (13-40); Bilirubin, Total 0.5 mg/dL (0.2-1.0)
[2024-05-12 07:31] LABS: Chloride 108 mmol/L (98-107)
[2024-05-12] MEDS: amLODIPine BESYLATE 5 MG TAB PO SCH (09:19)
[2024-05-12] MEDS: ASPirin 81 mg TAB PO SCH (10:27)
--- NOTE | 2024-05-12 13:06 | DVHDS2 ---
Discharge Summary Date of Admission May 11, 2024 at 15:58 Labs/Diagnostic Data: Laboratory Results Test 05/12/24 11:43 05/12/24 06:16 05/11/24 18:07 05/11/24 16:44 POC Glucose 92 mg/dl (70-106) White Blood Count 10.5 10^3/uL (4.4-10.8) Red Blood Count 3.85 10^6/uL (4.0-5.20) Hemoglobin 8.8 g/dL (12.2-16.2) Hematocrit 28.6 % (36.0-46.0) Mean Corpuscular Volume 74.2 fL (80.0-100.0) Mean Corpuscular Hemoglobin 23.0 pg (28.0-32.0) Mean Corpuscular Hemoglobin Concent 30.9 g/dL (32.0-36.0) Red Cell Distribution Width 19.9 % (11.8-14.3) Platelet Count 268 10^3/uL (140-450) Mean Platelet Volume 7.8 fL (6.9-10.8) Neutrophils (%) (Auto) 83.0 % (37.0-80.0) Lymphocytes (%) (Auto) 12.0 % (10.0-50.0) Monocytes (%) (Auto) 4.6 % (0.0-12.0) Eosinophils (%) (Auto) 0.2 % (0.0-7.0) Basophils (%) (Auto) 0.2 % (0.0-2.0) Neutrophils # (Auto) 8.8 10 ^3/uL (1.6-8.6) Lymphocytes # (Auto) 1.3 10 ^3/uL (0.4-5.4) Monocytes # (Auto) 0.5 10 ^3/uL (0-1.3) Eosinophils # (Auto) 0 10 ^3/uL (0-0.8) Basophils # (Auto) 0 10 ^3/uL (0-0.2) Nucleated Red Blood Cells 0.1 % Sodium Level 141 mmol/L (136-145) Potassium Level 3.7 mmol/L (3.5-5.1) Chloride Level 108 mmol/L (98-107) Carbon Dioxide Level 22 mmol/L (20-31) Anion Gap 11 (5-15) Blood Urea Nitrogen 19 mg/dL (9-23) Creatinine 0.60 mg/dL (0.550-1.02) Glomerular Filtration Rate Calc 91 mL/min (>90) BUN/Creatinine Ratio 31.7 (10.0-20.0) Serum Glucose 87 mg/dL (74-106) Calcium Level 8.8 mg/dL (8.7-10.4) Total Bilirubin 0.5 mg/dL (0.2-1.0) Aspartate Amino Transferase (AST) 35 U/L (13-40) Alanine Aminotransferase (ALT) 15 U/L (7-40) Alkaline Phosphatase 86 U/L (46-116) Total Protein 7.0 g/dL (5.7-8.2) Albumin 3.0 g/dL (3.2-4.8) Troponin I High Sensitivity 3 ng/L (</=34) Phenytoin (Dilantin) Level < 2.0 ug/mL (10-20) Test 05/11/24 14:40 05/11/24 14:30 Urine Color Yellow (Yellow) Urine Clarity Clear (Clear) Urine pH 5.5 (5.0-9.0) Urine Specific [place] 1.018 (1.001-1.035) Urine Protein Trace (Negative) Urine Ketones Negative (Negative) Urine Blood Negative /uL (Negative) Urine Nitrite Negative (Negative) Urine Bilirubin Negative (Negative) Urine Urobilinogen Normal mg/dL (Negative) Urine Leukocyte Esterase Negative /uL (Negative) Urine RBC 1 /hpf (0 - 4) Urine Microscopic WBC < 1 /HPF (0-5) Urine Squamous Epithelial Cells Few /hpf (<5) Urine Bacteria Few /hpf (None Seen) Urine Hyaline Casts Few /lpf (0 - 2) Urine Glucose Normal mg/dL (Normal) B-Type Natriuretic Peptide 20.95 pg/mL (0-100) Lipase 31 U/L (12-53) Other Laboratory Tests 05/12/24 06:16 Discharge Statement: "Patient was advised to return to the ER or call 911 if any headaches, dizziness, shortness of breath, chest pain, abdominal pain, bleeding, fevers, or worsening of medical condition. Patient was counseled about treatment plan, medications, possible side effects, patientverbalized understanding. All questions were answered to the best of my ability. This discharge took greater then 30 minutes in planning, reviewing documentation, counseling the patient, and discussing with other team members." ASSESSMENT ASSESSMENT Hospital Course Sepsis secondary to community-acquired pneumonia blood cultures negative, urine cultures negative Right lower lobe pneumonia: Rocephin azithromycin albuterol Atrovent med-neb Acute metabolic encephalopathy Possible seizures: CT head negative Neurology consult appreciated, placed on Dilantin on 100 mg PO TID, EEG pending Severe Dementia Hypertension History of throat cancer diagnosed 8 yrs ago Hypercholesterolemia History of seizures Assessment ALONDRA MARCUM MD May 12, 2024 13:06
--- NOTE | 2024-05-12 13:31 | DVHPN2 ---
Reviewed: Care Plan, H&P, Labs, Medications, Previous Orders, Radiology Changes from previous H/P or p: No Changes Eyes: No Pain, No Vision change, No Conjunctivae inflammation, No Eyelid inflammation, No Other, No Redness ENT: No Ear pain, No Ear discharge, No Nose pain, No Nose discharge, No Nose congestion, No Mouth pain, No Mouth swelling, No Throat pain, No Throat swelling, No Other Cardiovascular: Chest Pain; No Palpitations, No Orthopnea, No Paroxysmal Noc. Dyspnea, No Edema, No Lt Headedness, No Other Respiratory: No Cough, No Dry, No Shortness of breath, No SOB with excertion, No Wheezing, No Hemoptysis, No Pleuritic Pain, No Sputum, No Other Gastrointestinal: No Nausea, No Vomiting, No Abdominal Pain, No Diarrhea, No Constipation, No Melena, No Hematochezia, No Other Genitourinary: No Dysuria, No Frequency, No Incontinence, No Hematuria, No Retention, No Other Musculoskeletal: No other, No neck pain, No shoulder pain, No arm pain, No back pain, No hand pain, No leg pain, No foot pain Skin: No Rash, No Lesions, No Jaundice, No Bruising, No Other Objective Vitals Vital Signs Date Time Temp Pulse Resp B/P (MAP) Pulse Ox O2 Delivery O2 Flow Rate FiO2 05/12/24 12:21 97.7 101 18 99/59 (72) 100 97.7 05/12/24 08:00 Nasal Cannula* 1 24 Intake/Output Intake and Output 05/12/24 07:00 Intake Total 600 ml Output Total 900 ml Balance -300 ml Intake Oral 100 ml IV Total 500 ml Output Urine Total 900 ml Medications Current Medications Medications Dose Ordered Sig/Deloris Route Start Time Stop Time Status Last Admin Dose Admin Aspirin 81 mg DAILY PO 05/12/24 10:00 05/12/24 10:27 81 MG Amlodipine Besylate 5 mg DAILY PO 05/12/24 10:00 Hydralazine HCl 10 mg Q6HP PRN IV 05/11/24 15:30 Phenytoin Sodium 100 mg Q8HR PO 05/11/24 22:00 05/12/24 05:57 100 MG Diagnostic Test (Pha) 1 strip ACHS 05/11/24 17:00 05/12/24 11:53 1 STRIP Insulin Human Regular ACHS SC 05/11/24 17:00 Dextrose 50 ml UD PRN IV 05/11/24 15:30 Sodium Chloride 10 ml Q8HR IV 05/11/24 22:00 05/12/24 05:56 10 ML Acetaminophen/ Hydrocodone Bitart 1 tab Q4HP PRN PO 05/11/24 15:30 Ondansetron HCl 4 mg Q4HP PRN IV 05/11/24 15:30 Docusate Sodium 100 mg BIDPRN PRN PO 05/11/24 15:30 Acetaminophen 650 mg Q6HP PRN PO 05/11/24 15:30 05/12/24 00:48 650 MG Nitroglycerin 0.4 mg Q5MINP PRN SL 05/11/24 16:00 Morphine Sulfate 2 mg Q30M PRN IV 05/11/24 16:00 Ceftriaxone Sodium 50 ml @ 100 mls/hr DAILY@09 IV 05/13/24 09:00 UNV Azithromycin 250 ml @ 125 mls/hr DAILY IV 05/13/24 10:00 UNV Laboratory Results Laboratory Tests 05/12/24 06:16 Chemistry Test 05/11/24 14:30 05/12/24 06:16 Calcium Level 8.5 mg/dL (8.7-10.4) L 8.8 mg/dL (8.7-10.4) Albumin 3.0 g/dL (3.2-4.8) L Total Protein 7.0 g/dL (5.7-8.2) Lipid panel Test 05/11/24 14:30 Lipase 31 U/L (12-53) Cardiac Markers Test 05/11/24 14:30 B-Type Natriuretic Peptide 20.95 pg/mL (0-100) LFT Test 05/12/24 06:16 Alanine Aminotransferase (ALT) 15 U/L (7-40) Alkaline Phosphatase 86 U/L (46-116) Aspartate Amino Transferase (AST) 35 U/L (13-40) Total Bilirubin 0.5 mg/dL (0.2-1.0) Urinalysis Test 05/11/24 14:40 Urine Color Yellow (Yellow) Urine Clarity Clear (Clear) Urine pH 5.5 (5.0-9.0) Urine Specific [place] 1.018 (1.001-1.035) Urine Protein Trace (Negative) H Urine Ketones Negative (Negative) Urine Blood Negative /uL (Negative) Urine Nitrite Negative (Negative) Urine Bilirubin Negative (Negative) Urine Urobilinogen Normal mg/dL (Negative) Urine Leukocyte Esterase Negative /uL (Negative) Urine RBC 1 /hpf (0 - 4) Urine Microscopic WBC < 1 /HPF (0-5) Urine Squamous Epithelial Cells Few /hpf (<5) Urine Bacteria Few /hpf (None Seen) H Urine Hyaline Casts Few /lpf (0 - 2) Urine Glucose Normal mg/dL (Normal) Labs and/or images reviewed: Labs reviewed by me, Image(s) reviewed by me Assessment/Plan Assessment/Plan Chest pain rule out coronary artery disease: Troponin negative, cardiology consult Right upper lobe pneumonia: Rocephin azithromycin Pleuritic chest pain History of seizures on Dilantin Dementia Hypertension Hypercholesterolemia Cachexia History of throat cancer Time Spent 65 minutes Patient is full code Advanced care planning time 20 minutes Patient is hospice revoked Daughter Sergio [phone] bedside Plan discussed with: Patient My Orders Orders - ALONDRA MARCUM MD Procedure Category Date Status Time D-Dimer LAB 05/12/24 Logged 13:08 Rapid Influenza A&B LAB 05/12/24 Logged 13:08 Covid19 Antigen [facility] LAB 05/12/24 Logged Ceftriaxone 1gm/50ml PHA 05/13/24 Logged D5w (Rocephin) 09:00 Ceftriaxone 1gm/50ml PHA 05/12/24 Logged D5w (Rocephin) 13:15 Azithromycin 500mg/ PHA 05/13/24 Logged 250ml (Zithromax 50 10:00 Azithromycin 500mg/ PHA 05/12/24 Logged 250ml (Zithromax 50 13:15 * Cardiology Consult CONS 05/12/24 Transmitted 13:10 Date of Service: May 12, 2024 Billing Provider: ALONDRA MARCUM MD Common Visit Codes: [id number] CARE 30-74 MIN ALONDRA MARCUM MD May 12, 2024 13:31
[2024-05-12] MEDS: cefTRIAXone 1GM/50ML D5W 50 ML IV ONE (15:38)
--- NOTE | 2024-05-12 16:21 | DVHINCON2 ---
CONRAD DOMINGUEZ [facility] 05/12/24 1621: Date Seen: May 12, 2024 Referring Physician MD Slick Reason for Consultation Chest pain History of Present Illness This is an 79-year-old female who presented to the emergency room with a chief complaint of chest pain for two days. According to records she presented with substernal chest pain and generalized weakness. Upon assessment she was found A&O x 2 and complained of back pain only. Underwent multiple 12 lead electrocardiogram revealing a sinus rhythm with PVCs and no evident ST segment changes. Serial troponin levels are negative. Significant medical history includes unspecified history of myocardial infarction, angina, hypertension, dyslipidemia, seizure activity, dementia, recent hospice care given throat cancer, and bed-bound status. Past Medical History Past medical history reviewed. No other significant than mentioned above. Past Surgical History Unknown past surgical history. Family History: Patient reports no known family medical history. Family History Unknown family history. Social History Unknown social history. Allergies: Coded Allergies: NO KNOWN ALLERGIES (Unverified , 10/04/20) Home Meds Active Scripts Azithromycin (Azithromycin) 500 Mg Tab, 1 TAB PO DAILY, #10 TAB Prov:ALONDRA MARCUM MD 04/16/24 Hydrocodone-Acetaminophen (Hydrocodone Bitartrate/AC 5-325 mg) 1 Tab Tab, 1 TAB PO BID PRN, #10 TAB Prov:CHALO GAGNON [facility] 11/29/23 Reported Medications Phenytoin Sodium (DILANTIN CAPSULE) 100 Mg Cp, 1 CAP PO TID 04/13/24 Aspirin (Aspirin Low Dose) 81 Mg Tab, 1 TAB PO DAILY 04/13/24 Furosemide (Furosemide) 40 Mg Tab, 1 TAB PO DAILY 04/13/24 Losartan Potassium (Losartan Potassium) 25 Mg Tab, 1 TAB PO DAILY 04/13/24 Amlodipine Besylate (Amlodipine Besylate) 10 Mg Tab, 1 TAB PO DAILY 04/13/24 Metformin Hydrochloride (Metformin Hcl) 500 Mg Tab, 1 TAB PO DAILY 04/13/24 Nitroglycerin (Nitroglycerin) 0.4 Mg Sl 05/01/11 Home Meds Home medications reviewed. Current Medications Current Medications Medications (Trade) Dose Ordered Sig/Deloris Route PRN Reason Start Time Stop Time Status Last Admin Aspirin 81 mg DAILY PO 05/12/24 10:00 05/12/24 10:27 Amlodipine Besylate (Norvasc Tablet) 5 mg DAILY PO 05/12/24 10:00 Phenytoin Sodium (Dilantin Capsule) 100 mg Q8HR PO 05/11/24 22:00 05/12/24 13:50 Diagnostic Test (Pha) (Accu-Chek Comfort Curve T) 1 strip ACHS 05/11/24 17:00 05/12/24 11:53 Insulin Human Regular (InsuLIN R) ACHS SC 05/11/24 17:00 Sodium Chloride (Saline Lock Ns) 10 ml Q8HR IV 05/11/24 22:00 05/12/24 13:50 Ceftriaxone Sodium 50 ml @ 100 mls/hr DAILY@09 IV 05/13/24 09:00 Azithromycin 250 ml @ 125 mls/hr DAILY IV 05/13/24 10:00 Megestrol Acetate (Megace Tablet) 10 mg BID PO 05/12/24 22:00 Review of Systems Constitutional: No symptom reported Ears, Nose, & Throat: No symptom reported Eyes: No symptom reported Neurological: No symptoms reported Pulmonary/Respiratory: No symptom reported Cardiovascular: No symptom reported Gastrointestinal: No symptom reported Genitourinary: No symptom reported Musculoskeletal: Back pain Skin: No symptom reported Psychiatric: No symptom reported Endocrine: No symptom reported Hemotologic/Lymphatic: No symptom reported Vital Signs Vital Signs Date Time Temp Pulse Resp B/P (MAP) Pulse Ox O2 Delivery O2 Flow Rate FiO2 05/12/24 12:21 97.7 101 18 99/59 (72) 100 97.7 05/12/24 08:00 Nasal Cannula* 1 24 Physical Exam General Appearance: A&O x2. Fragile. Cachectic. Found on a position Head Exam: Normal inspection Neck Exam: Normal inspection. Non-tender. Normal alignment Pulmonary/Respiratory: Chest non-tender. Diminished bilateral breath sounds Cardiovascular/Chest: Regular rate and rhythm. S1, S2. Sinus rhythm with PVCs. No murmurs. No JVD. Peripheral Pulses: 2+ Radial (R). 2+ Radial (L). 2+ Pedal (R). 2+ Pedal (L) Abdominal Exam: Normal bowel sounds. Soft. Ankle Exam: Positive ankle pitting edema, 3+ Lower extremities: Positive bilateral foot pitting edema, 3+ Neuro/Mental Status: A&O x2. Very poor historian Thoughts/Psych: Calm Appearance: In no acute distress Skin Exam: Multiple wounds present. See wound care pictures Labs/Diagnostic Data Labs Test 05/12/24 11:43 05/12/24 06:16 05/11/24 18:07 05/11/24 16:44 Range/Units POC Glucose 92 70-106 mg/dl White Blood Count 10.5 4.4-10.8 10^3/uL Red Blood Count 3.85 L 4.0-5.20 10^6/uL Hemoglobin 8.8 L 12.2-16.2 g/dL Hematocrit 28.6 #L 36.0-46.0 % Mean Corpuscular Volume 74.2 L 80.0-100.0 fL Mean Corpuscular Hemoglobin 23.0 L 28.0-32.0 pg Mean Corpuscular Hemoglobin Concent 30.9 L 32.0-36.0 g/dL Red Cell Distribution Width 19.9 H 11.8-14.3 % Platelet Count 268 140-450 10^3/uL Mean Platelet Volume 7.8 6.9-10.8 fL Neutrophils (%) (Auto) 83.0 H 37.0-80.0 % Lymphocytes (%) (Auto) 12.0 10.0-50.0 % Monocytes (%) (Auto) 4.6 0.0-12.0 % Eosinophils (%) (Auto) 0.2 0.0-7.0 % Basophils (%) (Auto) 0.2 0.0-2.0 % Neutrophils # (Auto) 8.8 H 1.6-8.6 10 ^3/uL Lymphocytes # (Auto) 1.3 0.4-5.4 10 ^3/uL Monocytes # (Auto) 0.5 0-1.3 10 ^3/uL Eosinophils # (Auto) 0 0-0.8 10 ^3/uL Basophils # (Auto) 0 0-0.2 10 ^3/uL Nucleated Red Blood Cells 0.1 % Sodium Level 141 # 136-145 mmol/L Potassium Level 3.7 3.5-5.1 mmol/L Chloride Level 108 H 98-107 mmol/L Carbon Dioxide Level 22 20-31 mmol/L Anion Gap 11 5-15 Blood Urea Nitrogen 19 9-23 mg/dL Creatinine 0.60 0.550-1.02 mg/dL Glomerular Filtration Rate Calc 91 >90 mL/min BUN/Creatinine Ratio 31.7 H 10.0-20.0 Serum Glucose 87 74-106 mg/dL Calcium Level 8.8 8.7-10.4 mg/dL Total Bilirubin 0.5 0.2-1.0 mg/dL Aspartate Amino Transferase (AST) 35 13-40 U/L Alanine Aminotransferase (ALT) 15 7-40 U/L Alkaline Phosphatase 86 46-116 U/L Total Protein 7.0 5.7-8.2 g/dL Albumin 3.0 L 3.2-4.8 g/dL Troponin I High Sensitivity 3 L </=34 ng/L Phenytoin (Dilantin) Level < 2.0 L 10-20 ug/mL Test 05/11/24 14:40 05/11/24 14:30 Range/Units Urine Color Yellow Yellow Urine Clarity Clear Clear Urine pH 5.5 5.0-9.0 Urine Specific [place] 1.018 1.001-1.035 Urine Protein Trace H Negative Urine Ketones Negative Negative Urine Blood Negative Negative /uL Urine Nitrite Negative Negative Urine Bilirubin Negative Negative Urine Urobilinogen Normal Negative mg/dL Urine Leukocyte Esterase Negative Negative /uL Urine RBC 1 0 - 4 /hpf Urine Microscopic WBC < 1 0-5 /HPF Urine Squamous Epithelial Cells Few <5 /hpf Urine Bacteria Few H None Seen /hpf Urine Hyaline Casts Few 0 - 2 /lpf Urine Glucose Normal Normal mg/dL B-Type Natriuretic Peptide 20.95 0-100 pg/mL Lipase 31 12-53 U/L Assessment Chest pain in the setting of pneumonia Recent hospice care for throat cancer Seizure activity Advanced dementia Cachexia Plan/Recommendation (Dr. Wagner) Patient presented with chest pain in the setting of pneumonia which she denied at time of assessment. Twelve lead electrocardiograms reviewed without evidence of ST segment changes along with negative serial troponin levels. Initiate furosemide given pedal edema. Given fragile state, cachexia, and recent hospice care, the patient is not a candidate for any invasive cardiac workup at this time. Amlodipine therapy has been discontinued given borderline hypotension. Continue ABX therapy per primary care team. There is no further cardiac workup indicated at this time. Kindly call if in need to re-consult. Thank you for allowing us to participate in this patient's care. This medical document was created using an electronic medical record system with voice recognition software and computerized dictation system. Although this document has been carefully reviewed, there might still be some phonetic and typographical errors. Occasional wrong-word or ``sound-alike substitutions may have occurred due to the inherent limitations of voice recognition software. These areas are purely typographical due to imperfections of the software programs and do not reflect any compromise in the patient's medical care. Please read the chart carefully and recognize, using context, where these substitutions have occurred. Plan discussed with: Patient, Other NYHA Physical activity limitations: NA Date of Service: May 12, 2024 Billing Provider: CONRAD DOMINGUEZP Cardiology Common Codes: [id number] INP/OBS CARE (High) CORTES WAGNER MD 05/14/24 1650: Date Seen: May 12, 2024 Family History: Patient reports no known family medical history. Allergies: Coded Allergies: NO KNOWN ALLERGIES (Unverified , 10/04/20) Home Meds Active Scripts Azithromycin (Azithromycin) 500 Mg Tab, 1 TAB PO DAILY, #10 TAB Prov:ALONDRA MARCUM MD 04/16/24 Hydrocodone-Acetaminophen (Hydrocodone Bitartrate/AC 5-325 mg) 1 Tab Tab, 1 TAB PO BID PRN, #10 TAB Prov:CHALO GAGNON 11/29/23 Reported Medications Phenytoin Sodium (DILANTIN CAPSULE) 100 Mg Cp, 1 CAP PO TID 04/13/24 Aspirin (Aspirin Low Dose) 81 Mg Tab, 1 TAB PO DAILY 04/13/24 Furosemide (Furosemide) 40 Mg Tab, 1 TAB PO DAILY 04/13/24 Losartan Potassium (Losartan Potassium) 25 Mg Tab, 1 TAB PO DAILY 04/13/24 Amlodipine Besylate (Amlodipine Besylate) 10 Mg Tab, 1 TAB PO DAILY 04/13/24 Metformin Hydrochloride (Metformin Hcl) 500 Mg Tab, 1 TAB PO DAILY 04/13/24 Nitroglycerin (Nitroglycerin) 0.4 Mg Sl 05/01/11 Plan/Recommendation 79-year-old female with throat, cancer and dementia being evaluated at bedside. She does not recall or report any chest discomfort or pain. EKG with sinus rhythm and univocal PVCs. Recommend permissive, hypertension and symptom management for comfort care. Would avoid aggressive interventions and therapies if patient and family are agreeable.currently no s/s of acute cardiac syndrome. Cardiology Common Codes: [id number] INP/OBS CARE (Mod) CONRAD DOMINGUEZ May 12, 2024 16:21 CORTES WAGNER MD May 14, 2024 16:50
[2024-05-12] MEDS: AZITHROMYCIN 500MG/ 250ML 250 ML IV ONE (17:03)
[2024-05-12] MEDS: FUROSEMIDE 40 MG/4 ML VIAL IV ONE (17:04)
[2024-05-12] MEDS: MEGESTROL ACETATE 20 MG TAB PO SCH (21:42)
[2024-05-12 22:33] LABS: COVID19 ANTIGEN SOFIA FIA NEGATIVE (NEGATIVE)
[2024-05-12 22:34] LABS: Rapid Influenza A Negative (Negative); Rapid Influenza B Negative (Negative)
[2024-05-13] VITALS (8 sets, daily range): BP systolic 92–113; BP diastolic 50–69; PULSE 76–109; RESP 16–21; TEMP 94.7–98.9; O2SAT 88–98
[2024-05-13] MEDS: cefTRIAXone 1GM/50ML D5W 50 ML IV SCH (09:52)
[2024-05-13] MEDS: AZITHROMYCIN 500MG/ 250ML 250 ML IV SCH (09:53)
[2024-05-13] MEDS ORDERED: FUROSEMIDE 20 MG/2 ML VIAL IV SCH (10:00)
--- NOTE | 2024-05-13 11:21 | DVHPN2 ---
Reviewed: Care Plan, H&P, Labs, Medications, Previous Orders, Radiology Changes from previous H/P or p: No Changes Eyes: No Pain, No Vision change, No Conjunctivae inflammation, No Eyelid inflammation, No Other, No Redness ENT: No Ear pain, No Ear discharge, No Nose pain, No Nose discharge, No Nose congestion, No Mouth pain, No Mouth swelling, No Throat pain, No Throat swelling, No Other Cardiovascular: Chest Pain; No Palpitations, No Orthopnea, No Paroxysmal Noc. Dyspnea, No Edema, No Lt Headedness, No Other Respiratory: No Cough, No Dry, No Shortness of breath, No SOB with excertion, No Wheezing, No Hemoptysis, No Pleuritic Pain, No Sputum, No Other Gastrointestinal: No Nausea, No Vomiting, No Abdominal Pain, No Diarrhea, No Constipation, No Melena, No Hematochezia, No Other Genitourinary: No Dysuria, No Frequency, No Incontinence, No Hematuria, No Retention, No Other Musculoskeletal: No other, No neck pain, No shoulder pain, No arm pain, No back pain, No hand pain, No leg pain, No foot pain Skin: No Rash, No Lesions, No Jaundice, No Bruising, No Other Objective Vitals Vital Signs Date Time Temp Pulse Resp B/P (MAP) Pulse Ox O2 Delivery O2 Flow Rate FiO2 05/13/24 09:00 98.9 89 21 97/53 (68) 90 98.9 05/13/24 08:00 Nasal Cannula* 1 24 Intake/Output Intake and Output 05/13/24 07:00 Intake Total 600 ml Output Total 900 ml Balance -300 ml Intake Oral 550 ml IV Total 50 ml Output Urine Total 900 ml # Bowel Movements 3 Medications Current Medications Medications Dose Ordered Sig/Deloris Route Start Time Stop Time Status Last Admin Dose Admin Aspirin 81 mg DAILY PO 05/12/24 10:00 05/13/24 09:51 81 MG Hydralazine HCl 10 mg Q6HP PRN IV 05/11/24 15:30 Phenytoin Sodium 100 mg Q8HR PO 05/11/24 22:00 05/13/24 06:26 100 MG Diagnostic Test (Pha) 1 strip ACHS 05/11/24 17:00 05/13/24 06:08 1 STRIP Insulin Human Regular ACHS SC 05/11/24 17:00 Dextrose 50 ml UD PRN IV 05/11/24 15:30 Sodium Chloride 10 ml Q8HR IV 05/11/24 22:00 05/13/24 06:08 10 ML Acetaminophen/ Hydrocodone Bitart 1 tab Q4HP PRN PO 05/11/24 15:30 Ondansetron HCl 4 mg Q4HP PRN IV 05/11/24 15:30 Docusate Sodium 100 mg BIDPRN PRN PO 05/11/24 15:30 Acetaminophen 650 mg Q6HP PRN PO 05/11/24 15:30 05/12/24 00:48 650 MG Nitroglycerin 0.4 mg Q5MINP PRN SL 05/11/24 16:00 Morphine Sulfate 2 mg Q30M PRN IV 05/11/24 16:00 Ceftriaxone Sodium 50 ml @ 100 mls/hr DAILY@09 IV 05/13/24 09:00 05/13/24 09:52 100 MLS/HR Azithromycin 250 ml @ 125 mls/hr DAILY IV 05/13/24 10:00 05/13/24 09:53 125 MLS/HR Megestrol Acetate 10 mg BID PO 05/12/24 22:00 05/13/24 09:51 10 MG Furosemide 20 mg DAILY IV 05/13/24 10:00 Laboratory Results Laboratory Tests 05/12/24 06:16 Coagulation Test 05/12/24 16:43 D-Dimer, Quantitative 9.04 mg/L FEU (0.0-0.49) H Urinalysis Test 05/11/24 14:40 Urine Color Yellow (Yellow) Urine Clarity Clear (Clear) Urine pH 5.5 (5.0-9.0) Urine Specific [place] 1.018 (1.001-1.035) Urine Protein Trace (Negative) H Urine Ketones Negative (Negative) Urine Blood Negative /uL (Negative) Urine Nitrite Negative (Negative) Urine Bilirubin Negative (Negative) Urine Urobilinogen Normal mg/dL (Negative) Urine Leukocyte Esterase Negative /uL (Negative) Urine RBC 1 /hpf (0 - 4) Urine Microscopic WBC < 1 /HPF (0-5) Urine Squamous Epithelial Cells Few /hpf (<5) Urine Bacteria Few /hpf (None Seen) H Urine Hyaline Casts Few /lpf (0 - 2) Urine Glucose Normal mg/dL (Normal) Microbiology Microbiology Date/Time Source Procedure Growth Status 05/12/24 14:30 Sacrum Gram Stain - Final Resulted 05/12/24 14:30 Sacrum Wound Culture - Preliminary Resulted Labs and/or images reviewed: Labs reviewed by me, Image(s) reviewed by me Assessment/Plan Assessment/Plan Chest pain rule out coronary artery disease: Troponin negative, cardiology consult appreciated, no further cardiac workup Right upper lobe pneumonia: Rocephin azithromycin Pleuritic chest pain History of seizures on Dilantin Dementia Hypertension Hypercholesterolemia Cachexia Failure to thrive History of throat cancer Time Spent 65 minutes Patient is full code Advanced care planning time 20 minutes Patient is hospice revoked Daughter Sergio [phone] bedside Plan discussed with: Patient My Orders Orders - ALONDRA MARCUM MD Procedure Category Date Status Time Ceftriaxone 1gm/50ml PHA 05/13/24 In Process D5w (Rocephin) 09:00 Azithromycin 500mg/ PHA 05/13/24 In Process 250ml (Zithromax 50 10:00 * Cardiology Consult CONS 05/12/24 Transmitted 13:10 Megestrol Tablet PHA 05/12/24 In Process (Megace Tablet) 22:00 Wound Culture W/ Gs MITZY 05/12/24 In Process 14:39 Apply Barrier Cream HEATH 05/12/24 In Process 14:40 * Dietary Consult CONS 05/12/24 Transmitted 18:32 Date of Service: May 13, 2024 Billing Provider: ALONDRA MARCUM MD Common Visit Codes: [id number] INP/OBS CARE(HIGH) ALONDRA MARCUM MD May 13, 2024 11:21
[2024-05-13] MEDS: Glucerna Carbsteady SHAKE Vanilla 8oz PO SCH (12:00)
[2024-05-13] MEDS: HYDROcodone-ACET 5/325MG TAB PO PRN (16:50)
[2024-05-14] VITALS (7 sets, daily range): BP systolic 87–105; BP diastolic 39–59; PULSE 57–93; RESP 16–20; TEMP 97.4–98.7; O2SAT 94–100
--- NOTE | 2024-05-14 10:21 | DVHPN2 ---
Reviewed: Care Plan, H&P, Labs, Medications, Previous Orders, Radiology Changes from previous H/P or p: No Changes Eyes: No Pain, No Vision change, No Conjunctivae inflammation, No Eyelid inflammation, No Other, No Redness ENT: No Ear pain, No Ear discharge, No Nose pain, No Nose discharge, No Nose congestion, No Mouth pain, No Mouth swelling, No Throat pain, No Throat swelling, No Other Cardiovascular: Chest Pain; No Palpitations, No Orthopnea, No Paroxysmal Noc. Dyspnea, No Edema, No Lt Headedness, No Other Respiratory: No Cough, No Dry, No Shortness of breath, No SOB with excertion, No Wheezing, No Hemoptysis, No Pleuritic Pain, No Sputum, No Other Gastrointestinal: No Nausea, No Vomiting, No Abdominal Pain, No Diarrhea, No Constipation, No Melena, No Hematochezia, No Other Genitourinary: No Dysuria, No Frequency, No Incontinence, No Hematuria, No Retention, No Other Musculoskeletal: No other, No neck pain, No shoulder pain, No arm pain, No back pain, No hand pain, No leg pain, No foot pain Skin: No Rash, No Lesions, No Jaundice, No Bruising, No Other Objective Vitals Vital Signs Date Time Temp Pulse Resp B/P (MAP) Pulse Ox O2 Delivery O2 Flow Rate FiO2 05/14/24 08:00 88 16 94 Nasal Cannula* 1 24 05/14/24 05:00 97.4 87/39 (55) 97.4 Intake/Output Intake and Output 05/14/24 07:00 Intake Total 1340 ml Output Total 1580 ml Balance -240 ml Intake Oral 1040 ml IV Total 300 ml Output Urine Total 1580 ml # Bowel Movements 3 Medications Current Medications Medications Dose Ordered Sig/Deloris Route Start Time Stop Time Status Last Admin Dose Admin Aspirin 81 mg DAILY PO 05/12/24 10:00 05/14/24 08:59 81 MG Hydralazine HCl 10 mg Q6HP PRN IV 05/11/24 15:30 Phenytoin Sodium 100 mg Q8HR PO 05/11/24 22:00 05/14/24 06:26 100 MG Diagnostic Test (Pha) 1 strip ACHS 05/11/24 17:00 05/14/24 05:58 1 STRIP Insulin Human Regular ACHS SC 05/11/24 17:00 Dextrose 50 ml UD PRN IV 05/11/24 15:30 Sodium Chloride 10 ml Q8HR IV 05/11/24 22:00 05/14/24 05:57 10 ML Acetaminophen/ Hydrocodone Bitart 1 tab Q4HP PRN PO 05/11/24 15:30 05/13/24 16:50 1 TAB Ondansetron HCl 4 mg Q4HP PRN IV 05/11/24 15:30 Docusate Sodium 100 mg BIDPRN PRN PO 05/11/24 15:30 Acetaminophen 650 mg Q6HP PRN PO 05/11/24 15:30 05/12/24 00:48 650 MG Nitroglycerin 0.4 mg Q5MINP PRN SL 05/11/24 16:00 Morphine Sulfate 2 mg Q30M PRN IV 05/11/24 16:00 Ceftriaxone Sodium 50 ml @ 100 mls/hr DAILY@09 IV 05/13/24 09:00 05/14/24 08:59 100 MLS/HR Azithromycin 250 ml @ 125 mls/hr DAILY IV 05/13/24 10:00 05/14/24 08:59 125 MLS/HR Megestrol Acetate 10 mg BID PO 05/12/24 22:00 05/14/24 08:59 10 MG Enteral Nutritional Formula 240 ml TIDWM PO 05/13/24 12:00 05/14/24 07:25 240 ML Midodrine 10 mg TID@0600,1200,1800 PO 05/14/24 12:00 Megestrol Acetate 20 mg TID PO 05/14/24 14:00 Enteral Nutritional Formula 240 ml TIDWM PO 05/14/24 12:00 Laboratory Results Laboratory Tests 05/12/24 06:16 Urinalysis Test 05/11/24 14:40 Urine Color Yellow (Yellow) Urine Clarity Clear (Clear) Urine pH 5.5 (5.0-9.0) Urine Specific [place] 1.018 (1.001-1.035) Urine Protein Trace (Negative) H Urine Ketones Negative (Negative) Urine Blood Negative /uL (Negative) Urine Nitrite Negative (Negative) Urine Bilirubin Negative (Negative) Urine Urobilinogen Normal mg/dL (Negative) Urine Leukocyte Esterase Negative /uL (Negative) Urine RBC 1 /hpf (0 - 4) Urine Microscopic WBC < 1 /HPF (0-5) Urine Squamous Epithelial Cells Few /hpf (<5) Urine Bacteria Few /hpf (None Seen) H Urine Hyaline Casts Few /lpf (0 - 2) Urine Glucose Normal mg/dL (Normal) Microbiology Microbiology Date/Time Source Procedure Growth Status 05/12/24 14:30 Sacrum Gram Stain - Final Resulted 05/12/24 14:30 Sacrum Wound Culture - Preliminary Resulted Labs and/or images reviewed: Labs reviewed by me, Image(s) reviewed by me Assessment/Plan Assessment/Plan Chest pain coronary artery disease ruled out Troponin negative, cardiology consult appreciated, no further cardiac workup Right upper lobe pneumonia: Rocephin azithromycin Pleuritic chest pain History of seizures on Dilantin Dementia Hypertension Hypercholesterolemia Cachexia Failure to thrive Unstageable sacral decubitus ulcer present on admission History of throat cancer Time Spent 55 minutes Patient is full code Advanced care planning time 20 minutes Patient is hospice revoked Daughter Sergio [phone] bedside To be discharged to retirement facility for IV antibiotics for two weeks for pneumonia and for failure to thrive for rehab. Discussed with the patient's daughter. Plan discussed with: Patient My Orders Orders - ALONDRA MARCUM MD Procedure Category Date Status Time Pt Request For Service PT 05/13/24 Logged 11:34 Nutritional PHA 05/13/24 In Process Supplements (Glucerna 12:00 Pureed DIET 05/13/24 Transmitted Dinner Notify Provider NOTICE 05/13/24 Transmitted Malnutrition 14:13 Nutritional NOURISH 05/13/24 Transmitted Supplements 14:13 Increase Calorie NOURISH 05/13/24 Transmitted Intake 14:13 Dietary NOTICE 05/13/24 Transmitted Recommendations 14:13 Midodrine Tablet PHA 05/14/24 In Process (Proamatine Tablet) 12:00 Megestrol Tablet PHA 05/14/24 In Process (Megace Tablet) 14:00 Nutritional PHA 05/14/24 In Process Supplements (Ensure 12:00 Insert Midline ORDERS 05/14/24 Verified 10:01 * Dock Manager CONS 05/14/24 Transmitted Consult Date of Service: May 14, 2024 Billing Provider: ALONDRA MARCUM MD Common Visit Codes: [id number] INP/OBS CARE(HIGH) ALONDRA MARCUM MD May 14, 2024 10:21
--- NOTE | 2024-05-14 10:25 | DVHDS2 ---
Discharge Summary Date of Admission May 11, 2024 at 15:58 Date of Discharge: May 14, 2024 Admitting Diagnosis Altered mental status and confusion Wounds: Sacral decubitus ulcer Labs/Diagnostic Data: Laboratory Results Test 05/13/24 21:38 05/12/24 21:58 05/12/24 16:43 05/12/24 06:16 POC Glucose 124 mg/dl (70-106) Influenza Type A Antigen Negative (Negative) Influenza Type B Antigen Negative (Negative) SARS-CoV-2 Antigen (Rapid) Negative (NEGATIVE) D-Dimer, Quantitative 9.04 mg/L FEU (0.0-0.49) White Blood Count 10.5 10^3/uL (4.4-10.8) Red Blood Count 3.85 10^6/uL (4.0-5.20) Hemoglobin 8.8 g/dL (12.2-16.2) Hematocrit 28.6 % (36.0-46.0) Mean Corpuscular Volume 74.2 fL (80.0-100.0) Mean Corpuscular Hemoglobin 23.0 pg (28.0-32.0) Mean Corpuscular Hemoglobin Concent 30.9 g/dL (32.0-36.0) Red Cell Distribution Width 19.9 % (11.8-14.3) Platelet Count 268 10^3/uL (140-450) Mean Platelet Volume 7.8 fL (6.9-10.8) Neutrophils (%) (Auto) 83.0 % (37.0-80.0) Lymphocytes (%) (Auto) 12.0 % (10.0-50.0) Monocytes (%) (Auto) 4.6 % (0.0-12.0) Eosinophils (%) (Auto) 0.2 % (0.0-7.0) Basophils (%) (Auto) 0.2 % (0.0-2.0) Neutrophils # (Auto) 8.8 10 ^3/uL (1.6-8.6) Lymphocytes # (Auto) 1.3 10 ^3/uL (0.4-5.4) Monocytes # (Auto) 0.5 10 ^3/uL (0-1.3) Eosinophils # (Auto) 0 10 ^3/uL (0-0.8) Basophils # (Auto) 0 10 ^3/uL (0-0.2) Nucleated Red Blood Cells 0.1 % Sodium Level 141 mmol/L (136-145) Potassium Level 3.7 mmol/L (3.5-5.1) Chloride Level 108 mmol/L (98-107) Carbon Dioxide Level 22 mmol/L (20-31) Anion Gap 11 (5-15) Blood Urea Nitrogen 19 mg/dL (9-23) Creatinine 0.60 mg/dL (0.550-1.02) Glomerular Filtration Rate Calc 91 mL/min (>90) BUN/Creatinine Ratio 31.7 (10.0-20.0) Serum Glucose 87 mg/dL (74-106) Calcium Level 8.8 mg/dL (8.7-10.4) Total Bilirubin 0.5 mg/dL (0.2-1.0) Aspartate Amino Transferase (AST) 35 U/L (13-40) Alanine Aminotransferase (ALT) 15 U/L (7-40) Alkaline Phosphatase 86 U/L (46-116) Total Protein 7.0 g/dL (5.7-8.2) Albumin 3.0 g/dL (3.2-4.8) Test 05/11/24 18:07 05/11/24 16:44 05/11/24 14:40 05/11/24 14:30 Troponin I High Sensitivity 3 ng/L (</=34) Phenytoin (Dilantin) Level < 2.0 ug/mL (10-20) Urine Color Yellow (Yellow) Urine Clarity Clear (Clear) Urine pH 5.5 (5.0-9.0) Urine Specific [place] 1.018 (1.001-1.035) Urine Protein Trace (Negative) Urine Ketones Negative (Negative) Urine Blood Negative /uL (Negative) Urine Nitrite Negative (Negative) Urine Bilirubin Negative (Negative) Urine Urobilinogen Normal mg/dL (Negative) Urine Leukocyte Esterase Negative /uL (Negative) Urine RBC 1 /hpf (0 - 4) Urine Microscopic WBC < 1 /HPF (0-5) Urine Squamous Epithelial Cells Few /hpf (<5) Urine Bacteria Few /hpf (None Seen) Urine Hyaline Casts Few /lpf (0 - 2) Urine Glucose Normal mg/dL (Normal) B-Type Natriuretic Peptide 20.95 pg/mL (0-100) Lipase 31 U/L (12-53) Other Laboratory Tests 05/12/24 06:16 Brief Hx & Hospital Course: 79 Year-old female on hospice for recent diagnosis of throat cancer with a history of hypertension hypercholesterolemia dementia seizures burden for altered mental status confusion and shortness of breaths. Patient also complained of chest pain. Troponin negative x3 cardiology consult appreciated no further cardiac workup found to have right upper lobe pneumonia treated with Rocephin azithromycin. Patient is cachectic and with a poor appetite. Also had unstageable decubitus ulcer in the sacrum wound cultures pending. Patient being discharged [facility] for IV antibiotics for two weeks for pneumonia. Patient also has low blood pressure placed on midodrine and also Megace for appetite stimulation. General condition poor at the time of discharge. Discussed the plan with the patient's daughter Sergio she is acceptable Consults/Reason for consult None Operations or Procedures None Condition at Discharge: Fair Final Diagnosis/Problems List Chest pain coronary artery disease ruled out Troponin negative, cardiology consult appreciated, no further cardiac workup Right upper lobe pneumonia: Rocephin azithromycin Pleuritic chest pain History of seizures on Dilantin Dementia Hypertension Hypercholesterolemia Cachexia Failure to thrive Unstageable sacral decubitus ulcer present on admission History of throat cancer Discharge Disposition: Retirement Facility Discharge Instruct/Medications Diet: Cardiac 2g Na,low cholest Activity: Light activity Follow Up/Referral: Follow up With the care home Medications: Rocephin 1 g IV daily for two weeks Azithromycin 500 mg IV daily for two weeks 35 (time Taken for discharge summary 35 minutes) Discharge Statement: "Patient was advised to return to the ER or call 911 if any headaches, dizziness, shortness of breath, chest pain, abdominal pain, bleeding, fevers, or worsening of medical condition. Patient was counseled about treatment plan, medications, possible side effects, patientverbalized understanding. All questions were answered to the best of my ability. This discharge took greater then 30 minutes in planning, reviewing documentation, counseling the patient, and discussing with other team members." ASSESSMENT ASSESSMENT Hospital Course Minimal improvement Assessment Chest pain coronary artery disease ruled out Troponin negative, cardiology consult appreciated, no further cardiac workup Right upper lobe pneumonia: Rocephin azithromycin Pleuritic chest pain History of seizures on Dilantin Dementia Hypertension Hypercholesterolemia Cachexia Failure to thrive Unstageable sacral decubitus ulcer present on admission History of throat cancer Date of Service: May 14, 2024 Billing Provider: ALONDRA MARCUM MD Common Visit Codes: 04575-[facility]/OBS DISCH DAY >30min ALONDRA MARCUM MD May 14, 2024 10:25
[2024-05-14] MEDS: ENSURE CLEAR Apple 8oz Carton PO SCH (11:47)
[2024-05-14] MEDS: MIDODRINE HCL 10 MG TAB PO SCH (11:47)
[2024-05-14] MEDS: MEGESTROL ACETATE 20 MG TAB PO SCH (13:49)
== END 2024-05-14 18:30 | DRG 177 ==
LOC: EDBD 13:17 → ER 13:17 → OVERFLOW 15:58 → TELE-WESTW 21:59
PROVIDERS: ADMIT Family Medicine; ATTEND Family Medicine
PROC: 05HF33Z Insertion of Infusion Device into Left Cephalic Vein, Percutaneous Approach (ICD-10-PCS; principal; 2024-05-14)
PROC: B54NZZA Ultrasonography of Left Upper Extremity Veins, Guidance (ICD-10-PCS; 2024-05-14)
DX: J15.69 Pneumonia due to other Gram-negative bacteria (principal); L89.153 Pressure ulcer of sacral region, stage 3; R64 Cachexia; Z68.1 Body mass index [BMI] 19.9 or less, adult; D64.9 Anemia, unspecified; I10 Essential (primary) hypertension; Z20.822 Contact with and (suspected) exposure to COVID-19; E78.00 Pure hypercholesterolemia, unspecified; R62.7 Adult failure to thrive; J15.9 Unspecified bacterial pneumonia; F03.90 Unspecified dementia, unspecified severity, without behavioral disturbance, psychotic disturbance, mood disturbance, and anxiety; C14.0 Malignant neoplasm of pharynx, unspecified; Z87.891 Personal history of nicotine dependence; I25.2 Old myocardial infarction; Z79.2 Long term (current) use of antibiotics; Z79.82 Long term (current) use of aspirin; Z79.84 Long term (current) use of oral hypoglycemic drugs; Z79.899 Other long term (current) drug therapy
CPT/HCPCS: 36415; 71045; 80048; 80053; 80185; 81001; 82962; 83690; 83880; 84484; 85025; 85379; 86850; 86900; 86901; 87077; 87186; 87205; 87426; 87804; 93005; 97163; 99291; G0378

== ENCOUNTER 2024-06-04 14:04 | Inpatient (IN) | payer OTHER, MEDICARE ==
[~2024-06-04] VITALS: Ht 170.2 cm; Wt 61.4 kg
--- NOTE | 2024-06-04 14:14 | ED.PDOC ---
History of Present Illness HPI Comments 79 year old female presents to the ED via EMS with a chief complaint of generalized weakness onset few days. Per EMS, patient is a comfort care patient from [facility], was brought to ED due to increased weakness, loss of appetite or fluid intake and possible feeding tube placement. Patient is a poor historian. PMHx angina, Dementia, HTN, HLD, seizures. No other symptoms or modifying factors present at this time. Time Seen by MD: 14:08 Primary Care Provider: DENIES Reviewed Notes: Medications, Allergies Allergies: Coded Allergies: NO KNOWN ALLERGIES (Unverified , 10/04/20) Home Meds Active Scripts Azithromycin (Azithromycin) 500 Mg Tab, 1 TAB PO DAILY, #10 TAB Prov:ALONDRA MARCUM MD 04/16/24 Hydrocodone-Acetaminophen (Hydrocodone Bitartrate/AC 5-325 mg) 1 Tab Tab, 1 TAB PO BID PRN, #10 TAB Prov:CHALO GAGNON 11/29/23 Reported Medications Phenytoin Sodium (DILANTIN CAPSULE) 100 Mg Cp, 1 CAP PO TID 04/13/24 Aspirin (Aspirin Low Dose) 81 Mg Tab, 1 TAB PO DAILY 04/13/24 Furosemide (Furosemide) 40 Mg Tab, 1 TAB PO DAILY 04/13/24 Losartan Potassium (Losartan Potassium) 25 Mg Tab, 1 TAB PO DAILY 04/13/24 Amlodipine Besylate (Amlodipine Besylate) 10 Mg Tab, 1 TAB PO DAILY 04/13/24 Metformin Hydrochloride (Metformin Hcl) 500 Mg Tab, 1 TAB PO DAILY 04/13/24 Nitroglycerin (Nitroglycerin) 0.4 Mg Sl 05/01/11 Information Source: Patient, Emergency Med Personnel Mode of Arrival: EMS Severity: Moderate Timing: Days Duration: Since onset Prehospital treatment: None Past Medical History PAST MEDICAL HISTORY: Angina, Dementia, High Lipids, HTN, Seizures Surgical History: Denies all surgeries CONTRACTS ADVISOR History: Denies all CONTRACTS ADVISOR Hx Family History Family History: No family hx of HTN Social History Smoker: Quit Greater Than 1 Year Alcohol: Rarely Drugs: Denies Drug Use Lives In: Assisted Care Constitutional: reports: weakness; denies: chills, diaphoresis, fatigue, fever, malaise, sweats, others EENTM: denies: blurred vision, double vision, ear bleeding, ear discharge, ear drainage, ear pain, ear ringing, eye pain, eye redness, hearing loss, mouth pain, mouth swelling, nasal discharge, nose bleeding, nose congestion, nose pain, photophobia, tearing, throat pain, throat swelling, voice changes, others Respiratory: denies: cough, hemoptysis, orthopnea, SOB at rest, shortness of breath, SOB with excertion, stridor, wheezing, others Cardiovascular: denies: chest pain, dizzy spells, diaphoresis, Dyspnea on exertion, edema, irregular heart beat, left arm pain, lightheadedness, palpitat ions, PND, syncope, others Gastrointestinal: reports: poor appetite; denies: abdomen distended, abdominal pain, blood streaked bowels, constipated, diarrhea, dysphagia, difficulty swallowing, hematemesis, melena, nausea, poor fluid intake, rectal bleeding, rectal pain, vomiting, others Genitourinary: denies: abnormal vagina bleeding, burning, dyspareunia, dysuria, flank pain, frequency, hematuria, incontinence, pain, , vagina discharge , urgency, others Neurological: reports: weakness; denies: dizziness, fainting, headache, left sided numbness, left sided weakness, numbness, paresthesia, pre-existing deficit, right sided numbness, right sided weakness, seizure, speech problems, tingling, tremors, others Musculoskeletal: denies: back pain, gout, joint pain, joint swelling, muscle pain, muscle stiffness, neck pain, others Integumetry: denies: bruises, change in color, change in hair/nails, dryness, laceration, lesions, lumps, rash, wounds, others Allergic/Immunocompromised: denies: Difficulty Healing, Frequent Infections, Hives, Itching, others Hematologic/Lymphatic: denies: anemia, blood clots, easy bleeding, easy bruising, swollen glands, others Endocrine: denies: excessive hunger, excessive sweating, excessive thirst, excessive urination, flushing, intolerance to cold, intolerance to heat, unexplained weight gain, unexplained weight loss, others Psychiatric: denies: anxiety, bipolar disorder, depression, hopeless, panic disorder, schizophrenia, sleepless, suicidal, others All Other Systems: Reviewed and Negative Physical Exam General Appearance: No Apparent Distress, Normal HEENT: Normal ENT Inspection, Pharynx Normal, TMs Normal Neck: Full Range of Motion, Non-Tender, Normal, Normal Inspection Respiratory: Chest Non-Tender, Lungs Clear, No Accessory Muscle Use, No Respiratory Distress, Normal Breath Sounds Cardiovascular: No Edema, No JVD, No Murmur, No Gallop, Normal Peripheral Pulses, Regular Rate/Rhythm Breast Exam: Deferred Gastrointestinal: No Organomegaly, Non Tender, No Pulsatile Mass, Normal Bowel Sounds, Soft Genitalia: Deferred Pelvic: Deferred Rectal: Deferred Extremities: No calf tenderness, Normal capillary refill, Normal inspection, Normal range of motion, Non-tender, No pedal edema Musculoskeletal : Apperance: Normal Neurologic: Alert, rug sizer II-XII nml as Tested, No Motor Deficits, Normal Affect, Normal Mood, No Sensory Deficits Cerebellar Function: Normal Reflexes: Normal Skin: Dry, Normal Color, Warm Lymphatic: No Adenopathy Was a procedure done? Was a procedure done?: No Differential Dx Considerations may include: Electrolyte abnormality, infectious etiology, pneumonia, UTI, CVA X-Ray, Labs, Meds, VS Vital Signs Date Time Temp Pulse Resp B/P (MAP) Pulse Ox O2 Delivery O2 Flow Rate FiO2 06/04/24 23:43 98.8 98 18 105/38 98.8 06/04/24 23:00 104 22 110/52 (71) 99 06/04/24 21:55 98.8 102 20 96/53 98.8 06/04/24 21:33 98.6 102 24 106/44 98.6 06/04/24 21:33 102 24 106/44 (64) 97 06/04/24 21:00 104 24 93/45 (61) 98 06/04/24 20:00 102 23 95 Room Air* 0 21 06/04/24 20:00 98.2 103 24 110/52 (71) 95 98.2 06/04/24 18:00 96.3 100 23 122/49 (73) 98 96.3 06/04/24 17:00 95.2 101 18 109/63 (78) 100 95.2 06/04/24 16:00 95.2 98 26 101/61 (74) 95.2 06/04/24 16:00 97 06/04/24 15:35 95.2 98 24 98/49 (65) 95.2 06/04/24 15:20 95.2 87 15 88/34 (52) 95.2 06/04/24 15:15 95.1 87 16 75/37 (50) 95.1 06/04/24 15:15 87 16 92 Room Air* 0 21 06/04/24 14:30 78 12 90/42 (58) 06/04/24 14:12 98.4 88 12 87/44 (58) 96 98.4 Lab Test 06/04/24 17:12 06/04/24 14:53 06/04/24 14:39 Range/Units Urine Color Yellow Yellow Urine Clarity Turbid H Clear Urine pH 5.5 5.0-9.0 Urine Specific [place] 1.017 1.001-1.035 Urine Protein 1+ H Negative Urine Ketones Negative Negative Urine Blood Trace H Negative /uL Urine Nitrite Negative Negative Urine Bilirubin Negative Negative Urine Urobilinogen Normal Negative mg/dL Urine Leukocyte Esterase 1+ Negative /uL Urine RBC 44 0 - 4 /hpf Urine Microscopic WBC 16 H 0-5 /HPF Urine Squamous Epithelial Cells Few <5 /hpf Urine Bacteria Few H None Seen /hpf Urine Mucus Few None Seen Urine Glucose Normal Normal mg/dL White Blood Count 9.7 4.4-10.8 10^3/uL Red Blood Count 2.79 L 4.0-5.20 10^6/uL Hemoglobin 6.6 *L 12.2-16.2 g/dL Hematocrit 21.1 L 36.0-46.0 % Mean Corpuscular Volume 75.4 L 80.0-100.0 fL Mean Corpuscular Hemoglobin 23.6 L 28.0-32.0 pg Mean Corpuscular Hemoglobin Concent 31.3 L 32.0-36.0 g/dL Red Cell Distribution Width 24.6 H 11.8-14.3 % Platelet Count 201 140-450 10^3/uL Mean Platelet Volume 7.6 6.9-10.8 fL Neutrophils (%) (Auto) 37.0-80.0 % Lymphocytes (%) (Auto) 10.0-50.0 % Monocytes (%) (Auto) 0.0-12.0 % Basophils (%) (Auto) 0.0-2.0 % Neutrophils # (Auto) 1.6-8.6 10 ^3/uL Lymphocytes # (Auto) 0.4-5.4 10 ^3/uL Monocytes # (Auto) 0-1.3 10 ^3/uL Differential Total Cells Counted 100.0 100 Immature Granulocytes % 1 Neutrophils % (Manual) 65 37.0-80.0 Band Neutrophils % (Manual) 9 Lymphocytes % (Manual) 20 10.0-50.0 Monocytes % (Manual) 5 0-12 Eosinophils % (Manual) 0 0-7 Basophils % (Manual) 0 0.0-2.0 Metamyelocytes % (manual) 1 Myelocytes % (Manual) 0 Promyelocytes % (Manual) 0 Blast Cells % (Manual) 0 Reactive Lymphocytes 0 Platelet Estimate Adequate Hypochromasia (manual) Moderate Anisocytosis (manual) Moderate Microcytosis Slight Sodium Level 148 H 136-145 mmol/L Potassium Level 3.5 3.5-5.1 mmol/L Chloride Level 117 H 98-107 mmol/L Carbon Dioxide Level 22 20-31 mmol/L Anion Gap 9 5-15 Blood Urea Nitrogen 21 9-23 mg/dL Creatinine 0.54 L 0.550-1.02 mg/dL Glomerular Filtration Rate Calc 93 >90 mL/min BUN/Creatinine Ratio 38.9 H 10.0-20.0 Serum Glucose 85 74-106 mg/dL Lactic Acid Level 1.8 0.4-2.0 mmol/L Calcium Level 8.5 L 8.7-10.4 mg/dL B-Type Natriuretic Peptide 70.60 0-100 pg/mL POC Glucose 71 70-106 mg/dl Current Medications Medications (Trade) Dose Ordered Sig/Deloris Route Start Time Stop Time Status Last Admin Sodium Chloride 1,000 ml @ 1,000 mls/hr Q1H ONCE IV 06/04/24 16:30 06/04/24 17:29 DC 06/04/24 16:52 Ondansetron HCl (Zofran) 4 mg ONCE ONCE IV 06/04/24 16:30 06/04/24 16:31 DC 06/04/24 16:52 Cefepime HCl 50 ml @ 12.5 mls/hr ONCE ONCE IV 06/04/24 16:30 06/04/24 20:29 DC 06/04/24 16:52 Vancomycin HCl 200 ml @ 200 mls/hr ONCE ONCE IV 06/04/24 16:30 06/04/24 17:29 DC 06/04/24 17:47 [facility] [id number] [place] [id number] Ph: [phone] DIAGNOSTIC IMAGING Diagnostic Imaging Report : [id number] Signed PATIENT: DOT LAY ACCT: [id number] UNIT: [id number] : 1945 LOC: ER ROOM / BED: / AGE / SEX: 79 / F ADM STATUS: REG ER SERVICE 1456 ORDERING PHYSICIAN: TIM LIMA MD PROCEDURE(s): CXRP - CHEST PORTABLE REASON: WEAKNESS ORDER NUMBER(s): [id number], ACCESSION NUMBER(s): [id number] XY CHEST PORTABLE, HISTORY: WEAKNESS COMPARISON: XY CHEST PORTABLE on DOS: 05/11/24, XY CHEST PORTABLE on DOS: 04/13/24, CHEST PORTABLE on DOS: 10/04/20 XY CHEST PORTABLE on DOS: 05/11/24, XY CHEST PORTABLE on DOS: 04/13/24, CHEST PORTABLE on DOS: 10/04/20 TECHNICAL DATA: 1 view of the chest was obtained. FINDINGS: Lines and tubes: None Cardiomediastinal silhouette: normal Pulmonary vasculature: normal Lung expansion: normal Lung airspace: Multifocal patchy airspace opacity in the right upper and left lower lobe. Lung interstitium: normal Pleura: Small left effusion. Pneumothorax: no Bones: Old left humerus fracture with hardware seen. Other: no IMPRESSION: Multifocal patchy airspace opacity in the right upper and left lower lobe. ATED BY: YVON THAKUR MD DICTATED DATE/TIME: 06/04/24 152 SIGNED BY: YVON THAKUR MD SIGNED DATE/TIME: 06/04/24 1527 CC: Time of 1ST Reevaluation: 14:38 Reevaluation 1ST: Unchanged Patient Education/Counseling: Diagnosis, Treatment, Prognosis Family Education/Counseling: No Family Present Departure 1 Departure Time of Disposition: 11:51 (Patient with worsening mental status and sats symptoms concerning for multifocal pneumonia. Patient is clinically volume overloaded so we will not give the patient a full fluid bolus. We will cover patient empirically with antibiotics. Patient's family wants her DNR DNI however they do want her to have a feeding tube placed. We will admit patient for further workup) Impression: Primary Impression: Multifocal pneumonia Additional Impressions: Generalized weakness Metabolic encephalopathy Disposition: ADMITTED INPATIENT Admit to: Med Surg Condition: Serious Critical Care Note Critical Care Time?: No Stability Stability form required: No I personally scribed for TIM LIMA MD ([email or web address]) on 06/04/24 at 14:14. Electronically submitted by Janel Randle ([email or web address]). I personally scribed for TIM LIMA MD ([email or web address]) on 06/04/24 at 15:33. Electronically submitted by Janel Randle [email or web address]). TIM LIMA MD Jun 04, 2024 14:14
[2024-06-04 15:03] LABS: Mean Corpuscular Hgb Conc. 31.3 g/dL (32.0-36.0); Red Cell Distribution Width 24.6 % (11.8-14.3); White Blood Cell 9.7 10^3/uL (4.4-10.8)
[2024-06-04 15:05] LABS: Hematocrit 21.1 % (36.0-46.0); Mean Corpuscular Hemoglobin 23.6 pg (28.0-32.0); Mean Corpuscular Volume 75.4 fL (80.0-100.0); Platelet Count (auto) 201 10^3/uL (140-450); Red Blood Cells 2.79 10^6/uL (4.0-5.20)
[2024-06-04 15:07] LABS: Hemoglobin 6.6 g/dL (12.2-16.2)
[2024-06-04 15:09] LABS: Basophils % (manual) 0 (0.0-2.0); Blast Cells 0; Eosinophils % (manual) 0 (0-7); Myelocytes % 0; Promyelocytes % 0; Reactive Lymphocytes 0
[2024-06-04 15:15] VITALS: PULSE 87; RESP 16; O2SAT 92
[2024-06-04 15:22] LABS: Potassium 3.5 mmol/L (3.5-5.1)
[2024-06-04 15:23] LABS: Anion Gap 9 (5-15); Carbon Dioxide 22 mmol/L (20-31)
[2024-06-04 15:28] LABS: BUN/Creatinine Ratio 38.9 (10.0-20.0); Blood Urea Nitrogen 21 mg/dL (9-23); Glucose 85 mg/dL (74-106)
[2024-06-04 15:29] LABS: Calcium 8.5 mg/dL (8.7-10.4); Chloride 117 mmol/L (98-107); Sodium 148 mmol/L (136-145)
--- NOTE | 2024-06-04 15:29 | DVH ---
XY CHEST PORTABLE, HISTORY: WEAKNESS COMPARISON: XY CHEST PORTABLE on DOS: 05/11/24, XY CHEST PORTABLE on DOS: 04/13/24, CHEST PORTABLE on D OS: 10/04/20 XY CHEST PORTABLE on DOS: 05/11/24, XY CHEST PORTABLE on DOS: 04/13/24, CHEST PORTABLE on DOS: 10/04/20 TECHNICAL DATA: 1 view of the chest was obtained. FINDINGS: Lines and tubes: None Cardiomediastinal silhouette: normal Pulmonary vasculature: normal Lung expansion: normal Lung airspace: Multifocal patchy airspace opacity in the right upper and left lower lobe. Lung interstitium: normal Pleura: Small left effusion. Pneumothorax: no Bones: Old left humerus fracture with hardware seen. Other: no IMPRESSION: Multifocal patchy airspace opacity in the right upper and left lower lobe.
[2024-06-04 15:50] LABS: Band Neutrophils % (manual) 9; Lymphocytes % (manual) 20 (10.0-50.0); Monocytes % (manual) 5 (0-12)
[2024-06-04 15:51] LABS: Anisocytosis Moderate; Hypochromia Moderate; Metamyelocytes % 1; Platelet Estimate Adequate
[2024-06-04] MEDS: SODIUM CHLORIDE 0.9% 1,000 ML IV ONE (16:52)
[2024-06-04] MEDS: CEFEPIME 2GM/50ML NS 50 ML IV ONE (16:52)
[2024-06-04] MEDS: ONDANSETRON HCL 4 MG/2 ML VIAL IV ONE (16:52)
[2024-06-04 17:28] LABS: Urine Bacteria FEW /hpf (None Seen); Urine Blood TRACE /uL (Negative); Urine Clarity Turbid (Clear); Urine Color Yellow (Yellow); Urine Mucus FEW (None Seen); Urine Protein, UAD 1+ (Negative); Urine Specific Gravity 1.017 (1.001-1.035); Urine Squamous Epithelial Cell FEW /hpf (<5); Urine Urobilinogen Normal (Negative); Urine WBC 16 /HPF (0-5); Urine pH 5.5 (5.0-9.0)
[2024-06-04] MEDS: VANCOMYCIN 1GM/200ML PM 200 ML IV ONE (17:47)
[2024-06-04 20:00] VITALS: PULSE 102; RESP 23; O2SAT 95
[2024-06-04 21:33] VITALS: BP 106/44; PULSE 102; RESP 24; TEMP 98.6
[2024-06-04 21:55] VITALS: BP 96/53; PULSE 102; RESP 20; TEMP 98.8
[2024-06-04 23:43] VITALS: BP 105/38; PULSE 98; RESP 18; TEMP 98.8
[2024-06-05] VITALS (10 sets, daily range): BP systolic 82–140; BP diastolic 42–53; PULSE 59–104; RESP 16–20; TEMP 97.4–98.8; O2SAT 90–100
[2024-06-05] MEDS ORDERED: ONDANSETRON HCL 4 MG/2 ML VIAL IV PRN (01:45)
[2024-06-05] MEDS ORDERED: VANCOMYCIN PER PHARMACY 0 MG IV SCH (01:45)
[2024-06-05] MEDS: CEFEPIME 2GM/50ML NS 50 ML IV SCH (03:07)
[2024-06-05] MEDS: D5W/SOD CHLO 0.9% 1,000 ML IV ONE (03:07)
[2024-06-05] MEDS: MORPHINE SULFATE INJ 2 MG/ml SYRG IV ONE (03:08)
--- NOTE | 2024-06-05 04:45 | DVHHP2 ---
History of Present Illness Reason for Visit: Generalized weakness History of Present Illness 79-year-old female presents for evaluation of generalized weakness. Patient is a resident at [facility] acute care. Patient with a history of dementia unable to provide history. Per ED records and personnel patient with decreased appetite and minimal fluid intake was sent in for evaluation of per possible feeding tube placement. Patient noted to have multiple stage two pressure ulcers and a tunneled sacral wound with foul smell. Past Medical History Dementia, dyslipidemia, hypertension, seizures Past Surgical History None Family History Unknown Smoke: No ALCOHOL: none Drugs: None Lives: Other Review of Systems Review of Systems Review of systems are limited due to the patient's advanced dementia. Allergies: Coded Allergies: NO KNOWN ALLERGIES (Unverified , 10/04/20) Medications Current Medications Medications Dose Ordered Sig/Deloris Route Start Time Stop Time Status Last Admin Dose Admin Vancomycin HCl 0 ml @ 0 mls/hr UD IV 06/05/24 01:45 UNV Cefepime HCl 50 ml @ 12.5 mls/hr Q8H IV 06/05/24 02:00 06/05/24 03:07 12.5 MLS/HR Ondansetron HCl 4 mg Q4HP PRN IV 06/05/24 01:45 Enoxaparin Sodium 40 mg DAILY SC 06/05/24 10:00 UNV Diagnostic Test (Pha) 1 strip Q6HR 06/05/24 06:00 Insulin Human Regular Q6HR SC 06/05/24 06:00 Dextrose 50 ml UD PRN IV 06/05/24 01:45 Exam Vital Signs Vital Signs Date Time Temp Pulse Resp B/P (MAP) Pulse Ox O2 Delivery O2 Flow Rate FiO2 06/05/24 03:08 104 20 140/51 06/05/24 03:00 98.1 98.1 06/05/24 01:00 97 06/04/24 20:00 Room Air* 0 21 Exam Gen: 79-year-old female in moderate distress Skin: Warm, dry, normal color and texture, large tunneled sacral wound with foul smell HEENT: Normocephalic atraumatic, mucous membranes moist and pink. Neck: Cervical and supraclavicular nodes normal without enlargement, trachea is midline, thyroid gland is normal without masses. Pulmonary: Clear to auscultation and percussion bilaterally. Cardiac: Regular rate and rhythm. No murmur Abdomen: Soft, nontender, nondistended, bowel sounds present all 4 quadrants, no guarding, no rigidity, no organomegaly. Extremities: No cyanosis, clubbing, plus two bilateral pedal edema Neuro: Cranial nerves II through XII grossly intact, normal affect and speech, no focal motor deficits. Labs/Xrays ORDERING PHYSICIAN: TIM LIMA MD PROCEDURE(s): CXRP - CHEST PORTABLE REASON: WEAKNESS ORDER NUMBER(s): [id number], ACCESSION NUMBER(s): [id number] XY CHEST PORTABLE, HISTORY: WEAKNESS COMPARISON: XY CHEST PORTABLE on DOS: 05/11/24, XY CHEST PORTABLE on DOS: 04/13/24, CHEST PORTABLE on DOS: 10/04/20 XY CHEST PORTABLE on DOS: 05/11/24, XY CHEST PORTABLE on DOS: 04/13/24, CHEST PORTABLE on DOS: 10/04/20 TECHNICAL DATA: 1 view of the chest was obtained. FINDINGS: Lines and tubes: None Cardiomediastinal silhouette: normal Pulmonary vasculature: normal Lung expansion: normal Lung airspace: Multifocal patchy airspace opacity in the right upper and left lower lobe. Lung interstitium: normal Pleura: Small left effusion. Pneumothorax: no Bones: Old left humerus fracture with hardware seen. Other: no IMPRESSION: Multifocal patchy airspace opacity in the right upper and left lower lobe. Labs Test 06/04/24 17:12 06/04/24 14:53 06/04/24 14:39 Range/Units Urine Color Yellow Yellow Urine Clarity Turbid H Clear Urine pH 5.5 5.0-9.0 Urine Specific [place] 1.017 1.001-1.035 Urine Protein 1+ H Negative Urine Ketones Negative Negative Urine Blood Trace H Negative /uL Urine Nitrite Negative Negative Urine Bilirubin Negative Negative Urine Urobilinogen Normal Negative mg/dL Urine Leukocyte Esterase 1+ Negative /uL Urine RBC 44 0 - 4 /hpf Urine Microscopic WBC 16 H 0-5 /HPF Urine Squamous Epithelial Cells Few <5 /hpf Urine Bacteria Few H None Seen /hpf Urine Mucus Few None Seen Urine Glucose Normal Normal mg/dL White Blood Count 9.7 4.4-10.8 10^3/uL Red Blood Count 2.79 L 4.0-5.20 10^6/uL Hemoglobin 6.6 *L 12.2-16.2 g/dL Hematocrit 21.1 L 36.0-46.0 % Mean Corpuscular Volume 75.4 L 80.0-100.0 fL Mean Corpuscular Hemoglobin 23.6 L 28.0-32.0 pg Mean Corpuscular Hemoglobin Concent 31.3 L 32.0-36.0 g/dL Red Cell Distribution Width 24.6 H 11.8-14.3 % Platelet Count 201 140-450 10^3/uL Mean Platelet Volume 7.6 6.9-10.8 fL Neutrophils (%) (Auto) 37.0-80.0 % Lymphocytes (%) (Auto) 10.0-50.0 % Monocytes (%) (Auto) 0.0-12.0 % Basophils (%) (Auto) 0.0-2.0 % Neutrophils # (Auto) 1.6-8.6 10 ^3/uL Lymphocytes # (Auto) 0.4-5.4 10 ^3/uL Monocytes # (Auto) 0-1.3 10 ^3/uL Differential Total Cells Counted 100.0 100 Immature Granulocytes % 1 Neutrophils % (Manual) 65 37.0-80.0 Band Neutrophils % (Manual) 9 Lymphocytes % (Manual) 20 10.0-50.0 Monocytes % (Manual) 5 0-12 Eosinophils % (Manual) 0 0-7 Basophils % (Manual) 0 0.0-2.0 Metamyelocytes % (manual) 1 Myelocytes % (Manual) 0 Promyelocytes % (Manual) 0 Blast Cells % (Manual) 0 Reactive Lymphocytes 0 Platelet Estimate Adequate Hypochromasia (manual) Moderate Anisocytosis (manual) Moderate Microcytosis Slight Sodium Level 148 H 136-145 mmol/L Potassium Level 3.5 3.5-5.1 mmol/L Chloride Level 117 H 98-107 mmol/L Carbon Dioxide Level 22 20-31 mmol/L Anion Gap 9 5-15 Blood Urea Nitrogen 21 9-23 mg/dL Creatinine 0.54 L 0.550-1.02 mg/dL Glomerular Filtration Rate Calc 93 >90 mL/min BUN/Creatinine Ratio 38.9 H 10.0-20.0 Serum Glucose 85 74-106 mg/dL Lactic Acid Level 1.8 0.4-2.0 mmol/L Calcium Level 8.5 L 8.7-10.4 mg/dL B-Type Natriuretic Peptide 70.60 0-100 pg/mL POC Glucose 71 70-106 mg/dl Assessment/Plan Assessment/Plan Assessment Multifocal pneumonia Symptomatic anemia Dementia Failure to thrive Large infected tunneled sacral wound UTI Diabetes mellitus Plan Admit the patient to Med surge to the hospitalist Cefepime/vancomycin ID consult GI consult for possible PEG tube placement Surgical consult Wound consult Resume home medications Continue treatment per orders. Plan discussed with: Other My Orders Orders - BETITO KENNEY Procedure Category Date Status Time Admit ADMIT 06/04/24 Transmitted 23:53 Wound Culture W/ Gs MITZY 06/05/24 In Process 00:02 Irizarry Catheters ED NURSING 06/05/[address] Ab Pel Wo Con-No CT 06/05/24 Logged Oral Or Iv 01:37 Stool Occult Blood LAB 06/05/24 Uncollected 01:37 Vancomycin Per PHA 06/05/24 Pending Pharmacy 01:45 * Surgical Consult CONS 06/05/24 Transmitted * Infectious Yoselin Nava CONS 06/05/24 Transmitted Nolberto Boyle 01:37 * Gi Dvh [employer] Equipment Commanding Officer CONS 06/05/24 Transmitted 01:37 Cefepime 2gm/50ml Ns PHA 06/05/24 In Process (Maxipime 2gm/50ml) 02:00 Basic Metabolic Panel LAB 06/06/24 Verified 04:00 DNR HEATH 06/05/24 In Process 01:37 D5w/Sod Chlo 0.9% PHA 06/05/24 In Process (D5w Ns 0.9%) 01:45 Consult For Nutrition NOURISH 06/05/24 Transmitted 01:37 Ondansetron Hcl PHA 06/05/24 In Process (Zofran) 01:45 Enoxaparin Sodium PHA 06/05/24 Pending (Lovenox) 10:00 Complete Blood Count LAB 06/06/24 Verified 04:00 Condition: Stable HEATH 06/05/24 In Process 01:37 Bedrest With Bathroom HEATH 06/05/24 In Process Privileg 01:37 Glucose Blood PHA 06/05/24 In Process (Accu-Chek Comfort 06:00 Insulin R (Human) PHA 06/05/24 In Process (Insulin R) 06:00 Dextrose 50% Syringe PHA 06/05/24 In Process 01:45 Mrsa Screen MITZY 06/05/24 In Process 02:22 Date of Service: Jun 04, 2024 Billing Provider: BETITO KENNEY Common Visit Codes: [id number] INP/OBS CARE (HIGH) BETITO KENNEY Jun 05, 2024 04:45
[2024-06-05] MEDS: ACCU-CHEK COMFORT CURVE STRIP VI SCH (06:00)
[2024-06-05] MEDS: InsuLIN REG 1unit/0.01ml Soln (100units/ml) SC SCH (06:00)
[2024-06-05] MEDS: FUROSEMIDE 20 MG/2 ML VIAL IV SCH (06:00)
[2024-06-05] MEDS: DEXTROSE (50%) 50ML SYRG IV PRN (06:54)
[2024-06-05] MEDS: ENOXAPARIN SOD 40 MG/0.4 ML SYRINGE SC SCH (11:03)
--- NOTE | 2024-06-05 12:35 | DVHINCON2 ---
GI Consult Consult Note GI consult note Date of Consultation: 06/05/2024 Chief Complaint: Peg tube Referring Physician: Syd BELTRAN H&P: 79-year-old female with past medical history of dementia, dyslipidemia, hypertension and seizures, presented to ER with generalized weakness. Patient is a resident at [facility] acute [facility]. Patient unable to provide history. History from chart and RN at bedside No history of abdominal pain. No nausea or vomiting. No melena or red blood in stool Unsure about any weight loss Patient ate her breakfast with no problems this morning per RN Patient has pressure ulcers and a tunnel sacral wound Past Medical History: Dementia, dyslipidemia, hypertension, seizures Past Surgical History: None per chart Social History: NO smoking, drinking ETOH and use of illegal drugs. Family History: Unknown Review of Systems: As above Physical exam: General: NAD, patient is alert Chest: lung baker clear to auscultation Heart: RRR, no murmur Abdomen: no tenderness to palpation, +BS Labs:Labs Test 06/04/24 17:12 06/04/24 14:53 06/04/24 14:39 Range/Units Urine Color Yellow Yellow Urine Clarity Turbid H Clear Urine pH 5.5 5.0-9.0 Urine Specific [place] 1.017 1.001-1.035 Urine Protein 1+ H Negative Urine Ketones Negative Negative Urine Blood Trace H Negative /uL Urine Nitrite Negative Negative Urine Bilirubin Negative Negative Urine Urobilinogen Normal Negative mg/dL Urine Leukocyte Esterase 1+ Negative /uL Urine RBC 44 0 - 4 /hpf Urine Microscopic WBC 16 H 0-5 /HPF Urine Squamous Epithelial Cells Few <5 /hpf Urine Bacteria Few H None Seen /hpf Urine Mucus Few None Seen Urine Glucose Normal Normal mg/dL White Blood Count 9.7 4.4-10.8 10^3/uL Red Blood Count 2.79 L 4.0-5.20 10^6/uL Hemoglobin 6.6 *L 12.2-16.2 g/dL Hematocrit 21.1 L 36.0-46.0 % Mean Corpuscular Volume 75.4 L 80.0-100.0 fL Mean Corpuscular Hemoglobin 23.6 L 28.0-32.0 pg Mean Corpuscular Hemoglobin Concent 31.3 L 32.0-36.0 g/dL Red Cell Distribution Width 24.6 H 11.8-14.3 % Platelet Count 201 140-450 10^3/uL Mean Platelet Volume 7.6 6.9-10.8 fL Neutrophils (%) (Auto) 37.0-80.0 % Lymphocytes (%) (Auto) 10.0-50.0 % Monocytes (%) (Auto) 0.0-12.0 % Basophils (%) (Auto) 0.0-2.0 % Neutrophils # (Auto) 1.6-8.6 10 ^3/uL Lymphocytes # (Auto) 0.4-5.4 10 ^3/uL Monocytes # (Auto) 0-1.3 10 ^3/uL Differential Total Cells Counted 100.0 100 Immature Granulocytes % 1 Neutrophils % (Manual) 65 37.0-80.0 Band Neutrophils % (Manual) 9 Lymphocytes % (Manual) 20 10.0-50.0 Monocytes % (Manual) 5 0-12 Eosinophils % (Manual) 0 0-7 Basophils % (Manual) 0 0.0-2.0 Metamyelocytes % (manual) 1 Myelocytes % (Manual) 0 Promyelocytes % (Manual) 0 Blast Cells % (Manual) 0 Reactive Lymphocytes 0 Platelet Estimate Adequate Hypochromasia (manual) Moderate Anisocytosis (manual) Moderate Microcytosis Slight Sodium Level 148 H 136-145 mmol/L Potassium Level 3.5 3.5-5.1 mmol/L Chloride Level 117 H 98-107 mmol/L Carbon Dioxide Level 22 20-31 mmol/L Anion Gap 9 5-15 Blood Urea Nitrogen 21 9-23 mg/dL Creatinine 0.54 L 0.550-1.02 mg/dL Glomerular Filtration Rate Calc 93 >90 mL/min BUN/Creatinine Ratio 38.9 H 10.0-20.0 Serum Glucose 85 74-106 mg/dL Lactic Acid Level 1.8 0.4-2.0 mmol/L Calcium Level 8.5 L 8.7-10.4 mg/dL B-Type Natriuretic Peptide 70.60 0-100 pg/mL POC Glucose 71 70-106 mg/dl Imaging: Assessment: Failure to thrive Symptomatic anemia Dementia UTI Pneumonia Plan: -patient also seen by Dr. Caceres Monitor labs and transfuse if hemoglobin less than seven We will change diet to pureed diet Continue antibiotics We will follow patient Plan discussed with nurse Thank you for this consult Date of Service: Jun 05, 2024 Billing Provider: TAMMY MARCUM Common Visit Codes: CONSULT ONLY Consultation Codes: [id number] CONSULT <45MIN TAMMY AMRCUM Jun 05, 2024 12:35
[2024-06-05] MEDS ORDERED: SODIUM CHLORIDE 0.9% 1,000 ML IV SCH (14:15)
[2024-06-05] MEDS ORDERED: HYDROcodone-ACET 5/325MG TAB PO PRN (14:30)
--- NOTE | 2024-06-05 14:42 | DVHPNRES ---
Progress Note Date Seen: Jun 05, 2024 Resident Creating Document: LILLY NASH RESIDENT Medical Necessity Reason Pt with a Central, PICC or Fol: No Subjective Review of Systems Patient seen and examined at bedside Nonverbal Underlying dementia All information obtained from nurse. Able to tolerate diet. No any other new night events. Objective vital signs Vital Sign Date Time Temp Pulse Resp B/P (MAP) Pulse Ox O2 Delivery O2 Flow Rate FiO2 06/05/24 13:00 98.2 96 20 98/48 (65) 98 98.2 06/05/24 08:05 Room Air* 0 21 Total Intake and Output 06/04/24 06/04/24 06/05/24 15:00 23:00 07:00 Intake Total 550 ml 771 ml Output Total 400 ml Balance 550 ml 371 ml medications Current Medications Medications Dose Ordered Sig/Deloris Route Start Time Stop Time Status Last Admin Dose Admin Ondansetron HCl 4 mg Q4HP PRN IV 06/05/24 01:45 Diagnostic Test (Pha) 1 strip Q6HR 06/05/24 06:00 06/05/24 11:27 1 STRIP Insulin Human Regular Q6HR SC 06/05/24 06:00 Dextrose 50 ml UD PRN IV 06/05/24 01:45 06/05/24 06:54 50 ML Sodium Chloride 1,000 ml @ 75 mls/hr [id number] IV 06/05/24 14:30 UNV Acetaminophen/ Hydrocodone Bitart 1 tab Q6HPRN PRN PO 06/05/24 14:30 UNV Amino Acid Protein 30 ml TIDWM PO 06/05/24 18:00 UNV laboratory and microbiology Laboratory Tests 06/04/24 14:53 Test 06/04/24 14:53 Range/Units Serum Glucose 85 74-106 mg/dL Microbiology Date/Time Source Procedure Growth Status 06/05/24 02:15 Nose MRSA Screen - Final Complete Problem List/Assessment/Plan Problem List/Assessment/Plan Septic shock Multifocal pneumonia UTI Severe anemia Unstageable sacral ulcer Unstageable right hip ulcer Deep tissue injury Dementia Nonverbal Severe protein malnutrition Failure to thrive Plan/recommendation -prolonged discussion with family member, agreed with comfort measure only, focus mainly on comfort measures of pain and anxiety, can continue IV hydration as needed and antibiotics. No aggressive measures including CPR, intubation or blood transfusion. Family agreed with sending back to [facility] on discharge without hospice arrangement. Family agreed with continue current plan -plan to keep comfort measures today, plan for possible discharge tomorrow to -continue IV hydration, dietary consultation has been done, appropriate protein intake enteral route. -pain management: [place] 5/325 mg as needed q.6 p.r.n. Code status discussed greater than 24 minutes, comfort measures. DNI/DNR Plan discussed with Dr. Mckeon Plan discussed with: Daughter, Son (RN) My Orders My Orders Orders - LILLY NASH RESIDENT Procedure Category Date Status Time Sod Chl 0.45% (Sodium PHA 06/05/24 Logged Chloride 0.45% Via 14:30 Hydrocodone-Acet PHA 06/05/24 Logged 5/325mg Tab ([place] 14:30 Amino Acids-Protein PHA 06/05/24 Logged Hydrolysat (Pro-Stat 18:00 * Contract Administration Specialist CONS 06/05/24 Transmitted Consult 14:28 Code Status CODE 06/05/24 Transmitted 14:30 CC Plasma Assessment Blood Product Administration S: [id number] LILLY NASH RESIDENT Jun 05, 2024 14:42
[2024-06-05] MEDS ORDERED: VANCOMYCIN 500mg/100mL 100 ML IV SCH (16:00)
[2024-06-05] MEDS: SOD CHL 0.45% 1,000 ML IV SCH (16:21)
[2024-06-05] MEDS: Pro-Stat SF 30ml Vanilla PO SCH (18:05)
[2024-06-05] MEDS: DOXYCYCLINE 100MG/100ML 100 ML IV SCH (18:05)
[2024-06-06] VITALS (8 sets, daily range): BP systolic 116–135; BP diastolic 52–70; PULSE 88–105; RESP 17–37; TEMP 98.6–100.6; O2SAT 95–100
[2024-06-06 05:59] LABS: Hemoglobin 8.9 g/dL (12.2-16.2)
[2024-06-06 06:04] LABS: Hematocrit 27.3 % (36.0-46.0); Mean Corpuscular Hemoglobin 26.4 pg (28.0-32.0); Mean Corpuscular Hgb Conc. 32.5 g/dL (32.0-36.0); Mean Corpuscular Volume 81.1 fL (80.0-100.0); Platelet Count (auto) 130 10^3/uL (140-450); Red Blood Cells 3.37 10^6/uL (4.0-5.20); White Blood Cell 10.7 10^3/uL (4.4-10.8)
[2024-06-06 06:09] LABS: Red Cell Distribution Width 23.4 % (11.8-14.3)
[2024-06-06 06:10] LABS: Basophils % (manual) 0 (0.0-2.0); Blast Cells 0; Eosinophils % (manual) 0 (0-7); Metamyelocytes % 0; Promyelocytes % 0
[2024-06-06 07:07] LABS: Band Neutrophils % (manual) 15; Lymphocytes % (manual) 17 (10.0-50.0); Monocytes % (manual) 5 (0-12); Myelocytes % 1; Reactive Lymphocytes 2
[2024-06-06 07:08] LABS: Anisocytosis Moderate; Ovalocytes FEW; Platelet Estimate Decreased; Target Cell FEW
[2024-06-06] MEDS: cefTRIAXone 1GM/50ML D5W 50 ML IV SCH (10:43)
--- NOTE | 2024-06-06 12:18 | DVHINCON2 ---
Consultation - Surgical Date Seen: Jun 06, 2024 Referring Physician Reason for Consultation decubitus ulcers History of Present Illness History of Present Illness 79F w advanced dementia who resides in nursing facility and is chronically bed bound brought to ER for evaluation of poor PO intake and failure to thrive. During assessment she was noted to have multiple decubitus ulcers and surgery consulted for evaluation. Past Medical/Surgical History Past Medical/Surgical History dementia bedridden condition contractures Family and Social History Family and Social History no drugs, alcohol or tobacco Allergies and medications Allergies: Coded Allergies: NO KNOWN ALLERGIES (Unverified , 10/04/20) Home Meds Active Scripts Azithromycin (Azithromycin) 500 Mg Tab, 1 TAB PO DAILY, #10 TAB Prov:ALONDRA MARCUM MD 04/16/24 Hydrocodone-Acetaminophen (Hydrocodone Bitartrate/AC 5-325 mg) 1 Tab Tab, 1 TAB PO BID PRN, #10 TAB Prov:CHALO GAGNON 11/29/23 Reported Medications Phenytoin Sodium (DILANTIN CAPSULE) 100 Mg Cp, 1 CAP PO TID 04/13/24 Aspirin (Aspirin Low Dose) 81 Mg Tab, 1 TAB PO DAILY 04/13/24 Furosemide (Furosemide) 40 Mg Tab, 1 TAB PO DAILY 04/13/24 Losartan Potassium (Losartan Potassium) 25 Mg Tab, 1 TAB PO DAILY 04/13/24 Amlodipine Besylate (Amlodipine Besylate) 10 Mg Tab, 1 TAB PO DAILY 04/13/24 Metformin Hydrochloride (Metformin Hcl) 500 Mg Tab, 1 TAB PO DAILY 04/13/24 Nitroglycerin (Nitroglycerin) 0.4 Mg Sl 05/01/11 Review of systems Review of Systems: Deferred (unable to obtain 2/2 to patients condition (dementia)) Examination Vital signs Vital Signs Date Time Temp Pulse Resp B/P (MAP) Pulse Ox O2 Delivery O2 Flow Rate FiO2 06/06/24 09:00 99.1 105 23 116/59 (78) 96 99.1 06/06/24 08:00 Room Air* 0 21 Medications Current Medications Medications (Trade) Dose Ordered Sig/Deloris Route PRN Reason Start Time Stop Time Status Last Admin Vancomycin HCl 100 ml @ 200 mls/hr Q8H IV 06/05/24 16:00 06/05/24 14:40 DC Sodium Chloride 1,000 ml @ 60 mls/hr [id number] IV 06/05/24 14:15 06/05/24 14:22 DC Sodium Chloride 1,000 ml @ 75 mls/hr [id number] IV 06/05/24 14:30 06/06/24 04:00 Acetaminophen/ Hydrocodone Bitart ([place] 5/325MG Tab) 1 tab Q6HPRN PRN PO MODERATE PAIN (4-6 PAIN SCALE) 06/05/24 14:30 Amino Acid Protein (Pro-Stat Sugar Free) 30 ml TIDWM PO 06/05/24 18:00 06/06/24 10:31 Ceftriaxone Sodium 50 ml @ 100 mls/hr DAILY@09 IV 06/06/24 09:00 06/06/24 10:43 Doxycycline Hyclate 100 ml @ 50 mls/hr Q12H IV 06/05/24 16:45 06/06/24 04:01 Laboratory Labs Test 06/06/24 11:09 06/06/24 04:34 06/04/24 17:12 06/04/24 14:53 Range/Units POC Glucose 83 70-106 mg/dl White Blood Count 10.7 4.4-10.8 10^3/uL Red Blood Count 3.37 L 4.0-5.20 10^6/uL Hemoglobin 8.9 #L 12.2-16.2 g/dL Hematocrit 27.3 #L 36.0-46.0 % Mean Corpuscular Volume 81.1 # 80.0-100.0 fL Mean Corpuscular Hemoglobin 26.4 L 28.0-32.0 pg Mean Corpuscular Hemoglobin Concent 32.5 32.0-36.0 g/dL Red Cell Distribution Width 23.4 H 11.8-14.3 % Platelet Count 130 L 140-450 10^3/uL Mean Platelet Volume 7.3 6.9-10.8 fL Neutrophils (%) (Auto) 37.0-80.0 % Lymphocytes (%) (Auto) 10.0-50.0 % Monocytes (%) (Auto) 0.0-12.0 % Basophils (%) (Auto) 0.0-2.0 % Neutrophils # (Auto) 1.6-8.6 10 ^3/uL Lymphocytes # (Auto) 0.4-5.4 10 ^3/uL Monocytes # (Auto) 0-1.3 10 ^3/uL Differential Total Cells Counted 100.0 100 Neutrophils % (Manual) 60 37.0-80.0 Band Neutrophils % (Manual) 15 Lymphocytes % (Manual) 17 10.0-50.0 Monocytes % (Manual) 5 0-12 Eosinophils % (Manual) 0 0-7 Basophils % (Manual) 0 0.0-2.0 Metamyelocytes % (manual) 0 Myelocytes % (Manual) 1 Promyelocytes % (Manual) 0 Blast Cells % (Manual) 0 Reactive Lymphocytes 2 Platelet Estimate Decreased Anisocytosis (manual) Moderate Microcytosis Slight Target Cells Few Ovalocytes Few Urine Color Yellow Yellow Urine Clarity Turbid H Clear Urine pH 5.5 5.0-9.0 Urine Specific [place] 1.017 1.001-1.035 Urine Protein 1+ H Negative Urine Ketones Negative Negative Urine Blood Trace H Negative /uL Urine Nitrite Negative Negative Urine Bilirubin Negative Negative Urine Urobilinogen Normal Negative mg/dL Urine Leukocyte Esterase 1+ Negative /uL Urine RBC 44 0 - 4 /hpf Urine Microscopic WBC 16 H 0-5 /HPF Urine Squamous Epithelial Cells Few <5 /hpf Urine Bacteria Few H None Seen /hpf Urine Mucus Few None Seen Urine Glucose Normal Normal mg/dL Immature Granulocytes % 1 Hypochromasia (manual) Moderate Sodium Level 148 H 136-145 mmol/L Potassium Level 3.5 3.5-5.1 mmol/L Chloride Level 117 H 98-107 mmol/L Carbon Dioxide Level 22 20-31 mmol/L Anion Gap 9 5-15 Blood Urea Nitrogen 21 9-23 mg/dL Creatinine 0.54 L 0.550-1.02 mg/dL Glomerular Filtration Rate Calc 93 >90 mL/min BUN/Creatinine Ratio 38.9 H 10.0-20.0 Serum Glucose 85 74-106 mg/dL Lactic Acid Level 1.8 0.4-2.0 mmol/L Calcium Level 8.5 L 8.7-10.4 mg/dL B-Type Natriuretic Peptide 70.60 0-100 pg/mL Microbiology Date/Time Source Procedure Growth Status 06/05/24 11:30 Hip Gram Stain Pending Resulted 06/05/24 11:30 Hip Wound Culture - Preliminary Resulted 06/04/24 14:53 Blood Blood Culture - Preliminary NO GROWTH AFTER 24 HOURS OF INCUBATION. Resulted Examination: GENERAL:Normal, HEENT:Normal, NECK:Normal, LUNGS:Normal, CVS:Normal, ABDOMEN:Normal, MSK:Abnormal (extremities contracted), SKIN:Abnormal (b/l hip and sacral decubitus ulcers, scabs w exudative tissue, malodorous, no purulent drainage), NEURO:Abnormal (altered and not oriented) Problem List/Assessment/Plan Problems: (1) Advanced dementia (2) Decubitus ulcer of left hip, unstageable (3) Decubitus ulcer of lower back, unstageable (4) Decubitus ulcer of right hip, unstageable (5) Decubitus ulcer of sacral region, unstageable (6) Age-related skin fragility (7) Protein malnutrition (8) Impaired mobility and activities of daily living (9) Bed confinement status Assessment and Plan 79f w advanced dementia who resides in nursing facility and is chronically bed bound found to have multiple decubitus pressure ulcers on arrival to ER. large sacral decubitus ulcer, unstageable bilateral hip decubitus ulcers, unstageable goals of care discussed by primary with patients family, family decided to make patient comfort measures and would not like any invasive procedures wounds unstageable but no clinical evidence of underlying abscess recommend local wound care frequent repositioning, pressure reduction measures protein calorie supplementation, nutritional supplementation to optimize wound healing Plan discussed with Plan discussed with: Other (nurse) Visit Coding Surgery Date of Service if different f: Jun 06, 2024 Billing Provider: LIZY PRIETO MD Surgery Visit Codes: 84107 - INP CONSULT <40 MIN LIZY PRIETO MD Jun 06, 2024 12:18
[2024-06-06] MEDS: MORPHINE SULFATE INJ 2 MG/ml SYRG IV PRN (15:07)
--- NOTE | 2024-06-06 15:07 | DVHDS2 ---
Discharge Summary Date of Admission Jun 04, 2024 at 23:53 Date of Discharge: Jun 06, 2024 Labs/Diagnostic Data: Laboratory Results Test 06/06/24 11:09 06/06/24 04:34 06/04/24 17:12 06/04/24 14:53 POC Glucose 83 mg/dl (70-106) White Blood Count 10.7 10^3/uL (4.4-10.8) Red Blood Count 3.37 10^6/uL (4.0-5.20) Hemoglobin 8.9 g/dL (12.2-16.2) Hematocrit 27.3 % (36.0-46.0) Mean Corpuscular Volume 81.1 fL (80.0-100.0) Mean Corpuscular Hemoglobin 26.4 pg (28.0-32.0) Mean Corpuscular Hemoglobin Concent 32.5 g/dL (32.0-36.0) Red Cell Distribution Width 23.4 % (11.8-14.3) Platelet Count 130 10^3/uL (140-450) Mean Platelet Volume 7.3 fL (6.9-10.8) Neutrophils (%) (Auto) % (37.0-80.0) Lymphocytes (%) (Auto) % (10.0-50.0) Monocytes (%) (Auto) % (0.0-12.0) Basophils (%) (Auto) % (0.0-2.0) Neutrophils # (Auto) 10 ^3/uL (1.6-8.6) Lymphocytes # (Auto) 10 ^3/uL (0.4-5.4) Monocytes # (Auto) 10 ^3/uL (0-1.3) Differential Total Cells Counted 100.0 (100) Neutrophils % (Manual) 60 (37.0-80.0) Band Neutrophils % (Manual) 15 Lymphocytes % (Manual) 17 (10.0-50.0) Monocytes % (Manual) 5 (0-12) Eosinophils % (Manual) 0 (0-7) Basophils % (Manual) 0 (0.0-2.0) Metamyelocytes % (manual) 0 Myelocytes % (Manual) 1 Promyelocytes % (Manual) 0 Blast Cells % (Manual) 0 Reactive Lymphocytes 2 Platelet Estimate Decreased Anisocytosis (manual) Moderate Microcytosis Slight Target Cells Few Ovalocytes Few Urine Color Yellow (Yellow) Urine Clarity Turbid (Clear) Urine pH 5.5 (5.0-9.0) Urine Specific [place] 1.017 (1.001-1.035) Urine Protein 1+ (Negative) Urine Ketones Negative (Negative) Urine Blood Trace /uL (Negative) Urine Nitrite Negative (Negative) Urine Bilirubin Negative (Negative) Urine Urobilinogen Normal mg/dL (Negative) Urine Leukocyte Esterase 1+ /uL (Negative) Urine RBC 44 /hpf (0 - 4) Urine Microscopic WBC 16 /HPF (0-5) Urine Squamous Epithelial Cells Few /hpf (<5) Urine Bacteria Few /hpf (None Seen) Urine Mucus Few (None Seen) Urine Glucose Normal mg/dL (Normal) Immature Granulocytes % 1 Hypochromasia (manual) Moderate Sodium Level 148 mmol/L (136-145) Potassium Level 3.5 mmol/L (3.5-5.1) Chloride Level 117 mmol/L (98-107) Carbon Dioxide Level 22 mmol/L (20-31) Anion Gap 9 (5-15) Blood Urea Nitrogen 21 mg/dL (9-23) Creatinine 0.54 mg/dL (0.550-1.02) Glomerular Filtration Rate Calc 93 mL/min (>90) BUN/Creatinine Ratio 38.9 (10.0-20.0) Serum Glucose 85 mg/dL (74-106) Lactic Acid Level 1.8 mmol/L (0.4-2.0) Calcium Level 8.5 mg/dL (8.7-10.4) B-Type Natriuretic Peptide 70.60 pg/mL (0-100) Other Laboratory Tests 06/06/24 04:34 06/04/24 14:53 Brief Hx & Hospital Course: 79-year-old female presents for evaluation of generalized weakness. Patient is a resident at [facility]. Patient with a history of dementia unable to provide history. Per ED records and personnel patient with decreased appetite and minimal fluid intake was sent in for evaluation of per possible feeding tube placement. Patient noted to have multiple stage two pressure ulcers and a tunneled sacral wound with foul smell.. gfamily discussion done with tia, patient for comfort care, plan to dc back to today. Condition at Discharge: Good Final Diagnosis/Problems List PNA Discharge Disposition: [facility]sp Facility Discharge Instruct/Medications Diet: Regular Activity: No Restrictions, As Tolerated Discharge Statement: "Patient was advised to return to the ER or call 911 if any headaches, dizziness, shortness of breath, chest pain, abdominal pain, bleeding, fevers, or worsening of medical condition. Patient was counseled about treatment plan, medications, possible side effects, patientverbalized understanding. All questions were answered to the best of my ability. This discharge took greater then 30 minutes in planning, reviewing documentation, counseling the patient, and discussing with other team members." ASSESSMENT ASSESSMENT Assessment Septic shock Multifocal pneumonia UTI Severe anemia Unstageable sacral ulcer Unstageable right hip ulcer Deep tissue injury Dementia Nonverbal Severe protein malnutrition Failure to thrive Date of Service: Jun 06, 2024 Billing Provider: LINDSEY JANSEN MD Common Visit Codes: 76380-CXR/OBS DISCH DAY >30min LINDSEY JANSEN MD Jun 06, 2024 15:07
[2024-06-07 05:00] VITALS: BP 138/53; PULSE 98; RESP 22; TEMP 97.8; O2SAT 95
[2024-06-07 08:00] VITALS: PULSE 94; RESP 18; O2SAT 96
[2024-06-07 09:00] VITALS: BP 131/81; PULSE 84; RESP 30; TEMP 98.2; O2SAT 99
--- NOTE | 2024-06-07 12:37 | DVHPNRES ---
Progress Note Date Seen: Jun 07, 2024 Resident Creating Document: LILLY NASH RESIDENT Medical Necessity Reason Pt with a Central, PICC or Fol: No Subjective Review of Systems Patient seen and examined at bedside. Patient is comfort measure. Not in acute distress. Objective vital signs Vital Sign Date Time Temp Pulse Resp B/P (MAP) Pulse Ox O2 Delivery O2 Flow Rate FiO2 06/07/24 08:00 94 18 96 Room Air* 0 21 06/07/24 05:00 97.8 138/53 (81) 97.8 Total Intake and Output 06/06/24 06/06/24 06/07/24 15:00 23:00 07:00 Intake Total 1500 ml 0 ml Output Total 400 ml 700 ml Balance 1100 ml -700 ml medications Current Medications Medications Dose Ordered Sig/Deloris Route Start Time Stop Time Status Last Admin Dose Admin Ondansetron HCl 4 mg Q4HP PRN IV 06/05/24 01:45 Diagnostic Test (Pha) 1 strip Q6HR 06/05/24 06:00 06/07/24 12:07 1 STRIP Insulin Human Regular Q6HR SC 06/05/24 06:00 06/07/24 12:07 2 UNITS Dextrose 50 ml UD PRN IV 06/05/24 01:45 06/05/24 06:54 50 ML Sodium Chloride 1,000 ml @ 75 mls/hr [id number] IV 06/05/24 14:30 06/07/24 09:31 75 MLS/HR Acetaminophen/ Hydrocodone Bitart 1 tab Q6HPRN PRN PO 06/05/24 14:30 Amino Acid Protein 30 ml TIDWM PO 06/05/24 18:00 06/07/24 12:07 30 ML Ceftriaxone Sodium 50 ml @ 100 mls/hr DAILY@09 IV 06/06/24 09:00 06/07/24 09:31 100 MLS/HR Doxycycline Hyclate 100 ml @ 50 mls/hr Q12H IV 06/05/24 16:45 06/07/24 05:09 50 MLS/HR Morphine Sulfate 2 mg Q4HPRN PRN IV 06/06/24 14:45 06/06/24 15:07 2 MG Examination General Appearance: Not in acute distress, nonverbal. Head Exam: Normal inspection Neck Exam: Normal inspection. Non-tender. Normal alignment Pulmonary/Respiratory: Chest non-tender. Clear bilateral breath sounds Cardiovascular/Chest: Regular rate and rhythm. No murmurs. No JVD. Peripheral Pulses: 2+ Radial (R). 2+ Radial (L). 2+ Pedal (R). 2+ Pedal (L) Abdominal Exam: Normal bowel sounds. Soft. Nontender. No hepatospenomegaly. No masses Ankle Exam: Negative ankle edema Lower extremities: Negative lower extremity edema Neuro/Mental Status: Alert. Nonverbal Skin Exam: Multiple sacral and right hip ulcer, foul-smelling, DTI. laboratory and microbiology Laboratory Tests 06/06/24 04:34 06/04/24 14:53 Test 06/04/24 14:53 Range/Units Serum Glucose 85 74-106 mg/dL Microbiology Date/Time Source Procedure Growth Status 06/05/24 11:30 Hip Gram Stain - Final Resulted 06/05/24 11:30 Hip Wound Culture - Preliminary Resulted 06/04/24 14:53 Blood Blood Culture - Preliminary NO GROWTH AFTER 48 HOURS OF INCUBATION. Resulted Problem List/Assessment/Plan Problem List/Assessment/Plan Septic shock Multifocal pneumonia UTI Severe anemia Unstageable sacral ulcer Unstageable right hip ulcer Deep tissue injury Dementia Nonverbal Severe protein malnutrition Failure to thrive Plan/recommendation -plan to keep comfort measures today plan for possible discharge to with hospice -continue IV hydration, dietary consultation has been done, appropriate protein intake enteral route. -pain management: [place] 5/325 mg as needed q.6 p.r.n. Code status discussed greater than 24 minutes, comfort measures. DNI/DNR Plan discussed with Dr. Mckeon Plan discussed with: Other (RN) Dietary Evaluation Review Recommendations by RD: Increase Calorie Intake, Protein Supplementation Comments: 1) Initiate Ensure Enlive tid d/t decreased appetite and increased needs. Encourage optimal PO intake. Recommend staff to feed. 2) Initiate vitamin C @ 500 mg bid and zinc sulfate @ 220 mg for 7-10 days 3) If EN is preferred, consider Jevity 1.2 @ 60 mL/hr goal rate as tolerated. Decrease Pro-Stat from tid to bid. Flush with 200 mL Q6H. TF regimen (including Pro-Stat bid) will provide 1928 kcals, 110g Pro, and 1962 mL free H2O (including flushes) per 24 hrs. TF regimen will meet ~90% estimated daily energy needs and 100% estimated daily protein needs. 4) Consider stool softener/laxative to resolve constipation 6) Continue to monitor I&O, labs, and skin integrity Expected Outcomes/Goals: 1) appetite and labs to improve 2) wounds to improve 2) f/u in 2-3 days CC Plasma Assessment Blood Product Administration S: [id number] LILLY NASH RESIDENT Jun 07, 2024 12:37
[2024-06-07 12:58] VITALS: BP 137/67; PULSE 84; RESP 32; TEMP 99.8; O2SAT 100
[2024-06-07 17:00] VITALS: BP 131/67; PULSE 95; RESP 30; TEMP 98.8; O2SAT 99
== END 2024-06-07 17:40 | DRG 871 ==
LOC: EDBD 14:04 → ER 14:13 → OVERFLOW 23:53 → WEST WING 23:56
PROVIDERS: ADMIT Nurse Practitioner Acute Care; ATTEND Internal Medicine
PROC: 30233N1 Transfusion of Nonautologous Red Blood Cells into Peripheral Vein, Percutaneous Approach (ICD-10-PCS; principal; 2024-06-05)
DX: A41.9 Sepsis, unspecified organism (principal); E43 Unspecified severe protein-calorie malnutrition; R65.21 Severe sepsis with septic shock; G93.41 Metabolic encephalopathy; J15.69 Pneumonia due to other Gram-negative bacteria; J15.9 Unspecified bacterial pneumonia; N39.0 Urinary tract infection, site not specified; L97.819 Non-pressure chronic ulcer of other part of right lower leg with unspecified severity; Z66 Do not resuscitate; F03.90 Unspecified dementia, unspecified severity, without behavioral disturbance, psychotic disturbance, mood disturbance, and anxiety; R62.7 Adult failure to thrive; D64.9 Anemia, unspecified; L89.220 Pressure ulcer of left hip, unstageable; I10 Essential (primary) hypertension; L89.150 Pressure ulcer of sacral region, unstageable; L89.210 Pressure ulcer of right hip, unstageable; E78.5 Hyperlipidemia, unspecified; Z51.5 Encounter for palliative care; Z79.891 Long term (current) use of opiate analgesic; Z79.899 Other long term (current) drug therapy; Z79.82 Long term (current) use of aspirin; Z79.84 Long term (current) use of oral hypoglycemic drugs; Z79.1 Long term (current) use of non-steroidal anti-inflammatories (NSAID); Z87.891 Personal history of nicotine dependence; Z68.21 Body mass index [BMI] 21.0-21.9, adult; Z74.01 Bed confinement status; E11.622 Type 2 diabetes mellitus with other skin ulcer
CPT/HCPCS: 36415; 36430; 71045; 80048; 81001; 82962; 83605; 83880; 85007; 85027; 86850; 86900; 86901; 86920; 87040; 87077; 87081; 87186; 87205; 96365; 96375; G0378; J0692; J1815; J2405; J7042